=== PATIENT | female | born 1985 | race Caucasian/White ===

== ENCOUNTER 2016-11-27 07:56 | Observation (INO) ==
--- NOTE | 2016-11-27 08:40 | Emergency Department Note ---
Disposition Clinical Impression: Cellulitis Disposition: Still a Patient Condition: Fair Forms: ED Satisfaction Letter Time of Disposition: 11:35 Extremity Problem HPI - General Chief complaint: ED Extremity Problem,Nontraumatic Stated complaint: r hand infection/swelling Time Seen by Provider: 11/27/16 08:05 Source: patient Mode of arrival: private vehicle Limitations: no limitations Nursing Notes Reviewed: Yes Vital Signs Reviewed: Yes - History of Present Illness HPI Narrative: 31-year-old female patient presents to the emergency department with complaint of redness, swelling and tenderness to her hand. Patient states that this occurred over the last 24 hours. She denies any known trauma or site of infection. Patient does state that she is a former IV drug abuser but has not used for 8 years. She does have allergies to Zofran and tramadol. Current tetanus status is up-to-date. She denies any fever but does state that she has had some chills. She denies any abdominal pain, nausea, vomiting. She denies any chest pain, shortness of breath, dizziness or lightheadedness. Pt Subjective Complaint: extremity pain, extremity swelling Onset (ago): hour(s) Consistency: constant Injury Location: right, upper extremity Pain Scale: 8 Quality: aching Radiation: none Improves with: nothing Worsens with: range of motion, palpation Associated symptoms: Reports: denies other symptoms - Related Data Allergies Allergy/AdvReac Type Severity Reaction Status Date / Time ondansetron AdvReac Headache Verified 08/23/16 22:57 [From Zofran (as hydrochloride)] tramadol [From Ultram] AdvReac Headache Verified 08/23/16 22:57 All systems ED: reviewed and negative except as stated. Constitutional: Denies: fever, chills Cardiovascular: Denies: chest pain Respiratory: Denies: cough, dyspnea Gastrointestinal: Denies: abdominal pain, nausea, vomiting Musculoskeletal: Reports: arthralgia, myalgia. Denies: back pain, neck pain Integumentary: Reports: other (Redness and swelling to right hand.) Neurological: Denies: headache Past Medical History - Past Medical History Attestation: Yes The following information was validated with the patient. Source: patient, nursing notes reviewed Medical history: Reports: no medical history Surgical history: Reports: non-contributory - Social History Smoking Status: Current every day smoker Alcohol use: Reports: none Drug use: Reports: none Physical Exam - General Limitations: no limitations General appearance: alert, in no apparent distress - Head Head exam: atraumatic, normocephalic, normal inspection - Eye Eye exam: Present: normal appearance, PERRL - Neck Neck exam: Present: normal inspection, full ROM, trachea midline - Chest Chest inspection: Present: normal inspection, symmetric chest wall rise - Respiratory Respiratory exam: Present: normal lung sounds bilaterally. Absent: respiratory distress - Cardiovascular Cardiovascular exam: Present: regular rate, normal rhythm, normal heart sounds - Expanded Upper Extremity Exam Hand exam: Present: tenderness, swelling, erythema. Absent: ecchymosis, deformity, crepitus Vascular exam: Normal: capillary refill, radial pulse, ulnar pulse - Back Exam Back exam: Present: normal inspection, full ROM. Absent: tenderness - Neurological Exam Neurological exam: Present: alert, oriented X3 - Psychiatric Psychiatric exam: Present: normal affect, normal mood - Skin Skin exam: Present: warm, dry, intact, erythema Course Course Narrative: Care was transferred to Dr. Su at 1100 Vital Signs Temperature 97.8 F 11/27/16 07:58 Pulse Rate 85 11/27/16 07:58 Respiratory Rate 16 11/27/16 07:58 Blood Pressure 110/61 11/27/16 07:58 O2 Sat by Pulse Oximetry 98 11/27/16 07:58 Temperature 97.8 F 11/27/16 07:58 Pulse Rate 68 11/27/16 10:18 Respiratory Rate 18 11/27/16 10:18 Blood Pressure 112/77 11/27/16 10:18 O2 Sat by Pulse Oximetry 100 11/27/16 10:18 Oxygen Delivery Oxygen Delivery Room Air Extremity Problem, Nontraumati - Lab Data Lab results reviewed: Yes I reviewed the patient's lab results. Result diagrams: 11/27/16 10:12 11/27/16 10:12 Lab Results 11/27/16 11/27/16 Range/Units 10:12 10:12 WBC 5.4 (4.3-11.1) K/mcL RBC 4.79 (3.82-4.97) M/mcL Hgb 14.1 (11.5-15.4) g/dL Hct 42.7 (35.3-44.9) % MCV 89.1 (83.0-100.0) fL MCH 29.4 (28.0-33.3) pg MCHC 33.0 (31.6-35.5) g/dL RDW 14.1 (11.5-14.5) % Plt Count 209 (140-400) K/mcL MPV 11.0 (9.4-12.4) fL Immature Gran % 0.2 (0-4) % Seg Neutrophils % 37.5 % Lymphocytes % 41.3 % Monocytes % 5.9 % Eosinophils % 14.4 % Basophils % 0.7 % Neutrophils # 2.0 (1.6-8.9) K/mcL Lymphocytes # 2.2 (0.6-4.6) K/mcL Monocytes # 0.3 (0.0-1.3) K/mcL Eosinophils # 0.8 H (0.0-0.6) K/mcL Basophils # 0.0 (0.0-0.2) K/mcL Sodium 139 (136-145) mEq/L Potassium 3.9 (3.5-4.5) mEq/L Chloride 108 (98-109) mEq/L Carbon Dioxide 21 (19-29) mEq/L BUN 11 (7-20) mg/dL Creatinine 0.79 (0.57-1.11) mg/dL Est GFR ( Amer) > 60 (> 60) Est GFR (Non-Af Amer) > 60 (> 60) BUN/Creatinine Ratio 14 (6-26) Glucose 90 (70-99) mg/dL Calculated Osmolality 287 (280-300) Calcium 9.6 (8.6-10.8) mg/dL Total Bilirubin 0.4 (0.2-1.2) mg/dL AST 15 (5-34) Units/L ALT 13 (0-55) Units/L Alkaline Phosphatase 76 (38-126) Units/L Serum Total Protein 7.5 (6.0-8.3) g/dL Albumin 3.9 (3.5-5.0) g/dL Globulin 3.6 H (2.4-3.5) g/dL Albumin/Globulin Ratio 1.1 (1.1-2.2) - Radiology Data Radiology results reviewed: Yes I reviewed the patient's radiology results.
[2016-11-27] MEDS ORDERED: Ketorolac 30 MG/ML VIAL IVP ONE (10:23)
[2016-11-27 10:24] LABS: Basophils % 0.7 %; Eosinophils # 0.8 K/mcL (0.0-0.6); Eosinophils % 14.4 %; Hematocrit 42.7 % (35.3-44.9); Hemoglobin 14.1 g/dL (11.5-15.4); Immature Granulocytes % 0.2 % (0-4); Lymphocytes # 2.2 K/mcL (0.6-4.6); Lymphocytes % 41.3 %; Mean Corpuscular Hemoglobin 29.4 pg (28.0-33.3); Mean Corpuscular Volume 89.1 fL (83.0-100.0); Monocytes # 0.3 K/mcL (0.0-1.3); Monocytes % 5.9 %; Platelet Count 209 K/mcL (140-400); Red Blood Count 4.79 M/mcL (3.82-4.97); Red Cell Distribution Width 14.1 % (11.5-14.5); Segmented Neutrophils % 37.5 %
[2016-11-27 10:36] LABS: Alanine Aminotransferase 13 Units/L (0-55); Albumin 3.9 g/dL (3.5-5.0); Albumin/Globulin Ratio 1.1 (1.1-2.2); Alkaline Phosphatase 76 Units/L (38-126); Aspartate Amino Transferase 15 Units/L (5-34); BUN/Creatinine Ratio 14 (6-26); Bilirubin,Total 0.4 mg/dL (0.2-1.2); Blood Urea Nitrogen 11 mg/dL (7-20); Calcium 9.6 mg/dL (8.6-10.8); Carbon Dioxide 21 mEq/L (19-29); Chloride 108 mEq/L (98-109); Globulin 3.6 g/dL (2.4-3.5); Glucose 90 mg/dL (70-99); Osmolality,Calculated 287 (280-300); Potassium 3.9 mEq/L (3.5-4.5); Sodium 139 mEq/L (136-145); Total Protein 7.5 g/dL (6.0-8.3); eGFR For African Americans > 60 (> 60); eGFR For Non-African Americans > 60 (> 60)
[2016-11-27] MEDS ORDERED: *HR* Morphine 2 MG/ML SYRINGE IVP ONE (14:03)
[2016-11-27] MEDS ORDERED: Piperacillin/Tazobactam 3.375 GM in D5% in Water (Mini-Bag+) 100 ML IVPB ONE (14:03)
[2016-11-27] MEDS ORDERED: Vancomycin 1,000 MG in D5% in Water 250 ML IVPB ONE (14:03)
[2016-11-27] MEDS ORDERED: *HR* Promethazine 25 MG/ML VIAL IVP ONE ×2 (14:04→21:53)
[2016-11-27] MEDS ORDERED: Naloxone 0.4 MG/ML INJ IVP PRN (15:11)
[2016-11-27] MEDS ORDERED: Acetaminophen 325 MG TABLET PO PRN (15:11)
--- NOTE | 2016-11-27 15:23 | Internal Med History&Physical ---
Date of Encounter: 11/27/16 Time of Encounter: 14:30 Assessment and Plan (1) Cellulitis of right hand Current visit: Yes Status: Acute Placed the pt into Med Surg for observation Reviewed CT of Hand - no signs of fluid collection .. No osteomylities It does look like Poison IV rash too depending on presentation and appearance Does not look like any abscess so at this point will treat her with IV Abx Clindamycin Also added IV steroids Solumedrol 40mg BID Also placed her on PO and IV analgesics PRN keep hand elevated Cont symptomatic and supportive care (2) Poison eve dermatitis Current visit: Yes Status: Acute see above (3) Tobacco dependence Current visit: Yes Status: Acute counseled to quit offered nicotine patch..pt refused Internal Medicine - H&P: HPI Chief complaint: Rt hand swelling Admitted From: Emergency Dept Plans for Post Hospital Care: Home History of present illness: Ms. Courtney is a 31 year old female patient presented to the emergency department with complaint of redness, swelling and tenderness to her Rt hand started last night. She denies any known trauma or site of infection. Patient does state that she is a former IV drug abuser but has not used for 8 years. She first noticed a small vesicles type rash over lateral region of dorsum of hand then noticed erythematous rash over medial side of wrist with severe tenderness. Denied any contact to allergies / trees / grass. She does have allergies to Zofran and Tramadol. Current tetanus status is up-to-date. She denies any fever but does state that she has had some chills. She denies any abdominal pain, nausea, vomiting. She denies any chest pain, shortness of breath, dizziness or lightheadedness. Past Med Surg Social Fam HX - Past Medical History Medical history: no medical history - Past Surgical History Surgical History: non-contributory - Social History Smoking Status: Current every day smoker (1 PPD) Alcohol use: none Drug use: none - Additional Family History Additional family history: Reviewed. Non contribuitroy to current problem Internal Medicine - H&P: Meds No Known Home Drugs 11/27/16 [History] 3 Allergy/AdvReac Type Severity Reaction Status Date / Time ondansetron AdvReac Headache Verified 08/23/16 22:57 [From Zofran (as hydrochloride)] tramadol [From Ultram] AdvReac Headache Verified 08/23/16 22:57 All Systems PM: A 10-system review of systems was performed and is negative for pertinent findings except as documented above in the HPI. Review of systems: All the systems are reviewed everything is benign except the systems and symptoms I mentioned in the history of present illness - Constitutional Vitals: Temp Pulse Resp BP Pulse Ox 97.8 F 64 19 104/78 100 11/27/16 07:58 11/27/16 15:14 11/27/16 15:14 11/27/16 15:14 11/27/16 15:14 General appearance: Present: A&O X 3, pleasant, no acute distress, answers questions appropriately - Head Head exam: Present: atraumatic, normal inspection - Respiratory Respiratory exam: Present: CTAB. Absent: accessory muscle use, rales, rhonchi, wheezes - Cardiovascular Cardiovascular exam: Present: RRR, +S1, +S2. Absent: diastolic murmur, gallop, rubs, systolic murmur - GI/Abdominal GI/Abdominal exam: Present: normal bowel sounds, soft, no peritoneal signs. Absent: distended, tenderness - Extremities Exam Extremities exam: Present: tenderness (Rt wrist). Absent: calf tenderness Additional comments: diffuse swelling over Rt wrist and dorsum of the hand. Sand paper like rash, few vesicles over Rt hand lateral region. Mild erythematous rash and few vesicles noticed over medial region of Rt wrist - Neurological Exam Neurological exam: Present: alert, oriented X3 - Psychiatric Psychiatric exam: Present: normal affect, normal mood Internal Med - H&P Results - Labs CBC & Chem 7: 11/27/16 10:12 11/27/16 10:12
[2016-11-27] MEDS: Clindamycin 600 MG/50 ML 600 MG/50 ML IV.SOLN IVPB SCH ×2 (16:11→23:23)
[2016-11-27] MEDS: *HR* HYDROcodone/Acet 5/325 mg TABLET PO PRN ×2 (16:11→21:43)
[2016-11-27] MEDS: MethylPREDNISolone 40 MG/ML VIAL IVP SCH (18:23)
[2016-11-27] MEDS: *HR* Morphine 2 MG/ML SYRINGE IVP PRN (19:49)
[2016-11-27] MEDS: Famotidine 20 MG TABLET PO SCH (19:57)
[2016-11-27] MEDS: Lactobacillus 1 EACH CAP.SPRINK PO SCH (19:57)
[2016-11-28] MEDS: *HR* Morphine 2 MG/ML SYRINGE IVP PRN ×5 (00:37→23:58)
[2016-11-28 01:47] LABS: Basophils % 0.2 %; Eosinophils % 0.6 %; Hematocrit 40.5 % (35.3-44.9); Hemoglobin 13.2 g/dL (11.5-15.4); Immature Granulocytes % 0.2 % (0-4); Immature Platelets 3.8 % (1.1-6.1); Lymphocytes # 0.9 K/mcL (0.6-4.6); Lymphocytes % 18.1 %; Mean Corpuscular HGB Conc 32.6 g/dL (31.6-35.5); Mean Corpuscular Hemoglobin 28.8 pg (28.0-33.3); Mean Corpuscular Volume 88.4 fL (83.0-100.0); Mean Platelet Volume 10.8 fL (9.4-12.4); Monocytes % 0.6 %; Neutrophils # 4.1 K/mcL (1.6-8.9); Platelet Count 221 K/mcL (140-400); Red Blood Count 4.58 M/mcL (3.82-4.97); Red Cell Distribution Width 13.8 % (11.5-14.5); Segmented Neutrophils % 80.3 %
[2016-11-28 02:09] LABS: Platelet Estimate Normal (Normal)
[2016-11-28 02:10] LABS: Large Platelets Present (Not Present); Reactive Lymphocytes Present (Not Present)
[2016-11-28 02:13] LABS: BUN/Creatinine Ratio 17 (6-26); Blood Urea Nitrogen 14 mg/dL (7-20); Calcium 9.7 mg/dL (8.6-10.8); Carbon Dioxide 19 mEq/L (19-29); Chloride 110 mEq/L (98-109); Glucose 147 mg/dL (70-99); Osmolality,Calculated 291 (280-300); Potassium 4.3 mEq/L (3.5-4.5); Sodium 139 mEq/L (136-145); eGFR For African Americans > 60 (> 60); eGFR For Non-African Americans > 60 (> 60)
[2016-11-28] MEDS: *HR* HYDROcodone/Acet 5/325 mg TABLET PO PRN ×4 (02:13→21:00)
[2016-11-28] MEDS: MethylPREDNISolone 40 MG/ML VIAL IVP SCH ×2 (06:12→18:56)
[2016-11-28] MEDS: Clindamycin 600 MG/50 ML 600 MG/50 ML IV.SOLN IVPB SCH ×3 (08:30→23:58)
[2016-11-28] MEDS: Lactobacillus 1 EACH CAP.SPRINK PO SCH ×2 (08:30→20:53)
[2016-11-28] MEDS: Famotidine 20 MG TABLET PO SCH ×2 (08:31→20:53)
--- NOTE | 2016-11-28 15:52 | Internal Med Progress Note ---
Date of Encounter: 11/28/16 Time of Encounter: 15:50 - Assessment and plan (1) Cellulitis of right hand Status: Acute Assessment and plan: Pain and swelling intertarsal right hand and forearm. Improving slowly. Continue IV clindamycin. No evidence of sepsis. Follow-up blood cultures. Right upper extremity elevation. Pain control with when necessary IV morphine and oral Percocet. Supportive care. Continue IV steroids for possible contact dermatitis. (2) Tobacco dependence Status: Chronic Assessment and plan: Continue nicotine transdermal patch. - Subjective Interval history: Improving right hand and forearm swelling; reports throbbing pain in right hand ; no fever/chills, nausea, vomiting, abdominal pain; - Constitutional Vitals: Temp Pulse Resp BP Pulse Ox 97.8 F 73 16 108/67 97 11/28/16 11:38 11/28/16 11:38 11/28/16 11:38 11/28/16 11:38 11/28/16 11:38 General appearance: Present: A&O X 3, pleasant, no acute distress, answers questions appropriately - Respiratory Respiratory exam: Present: CTAB. Absent: accessory muscle use, rales, rhonchi, wheezes - Cardiovascular Cardiovascular exam: Present: RRR, +S1, +S2. Absent: diastolic murmur, gallop, rubs, systolic murmur - GI/Abdominal GI/Abdominal exam: Present: normal bowel sounds, soft, no peritoneal signs. Absent: distended, tenderness - Extremities Exam Extremities exam: Present: full ROM, warm, radial pulses palpable and symmetrical. Absent: calf tenderness, cyanotic, pedal edema Additional comments: right hand dorsum with diffuse edema and tenderness, small area of intense erythema over lateral hand; associated sandpaper papular rash; some edema in distal forearm- improving Internal Medicine: Result - Labs CBC & Chem 7: 11/28/16 01:20 11/28/16 01:20 Labs: Short CBC 11/28/16 Range/Units 01:20 WBC 5.1 (4.3-11.1) K/mcL Hgb 13.2 (11.5-15.4) g/dL Hct 40.5 (35.3-44.9) % Plt Count 221 (140-400) K/mcL Neutrophils # 4.1 (1.6-8.9) K/mcL BMP 11/28/16 01:20 Sodium 139 Potassium 4.3 Chloride 110 H Carbon Dioxide 19 BUN 14 Creatinine 0.84 Glucose 147 H Calcium 9.7 Consult Discharge Plan - Plan Instructions: Cellulitis (DC) Additional Instructions: F/up with Dermatology in 1-2 weeks F/up with PCP in 1-2 weeks Referrals: NONE,PCP [Primary Care Provider] - Prescriptions: HYDROcodone/Acet 5/325 mg [[place] 5-325 mg] 1 tab PO Q4HR PRN #15 tablet PRN Reason: Pain Clindamycin HCl 600 mg PO Q8H #15 capsule Lactobacillus [Culturelle] 1 each PO BID #20 cap.sprink PredniSONE [Deltasone] 40 mg PO DAILY #10 tablet
[2016-11-29] MEDS: MethylPREDNISolone 40 MG/ML VIAL IVP SCH (05:05)
[2016-11-29] MEDS: *HR* Morphine 2 MG/ML SYRINGE IVP PRN (05:11)
[2016-11-29] MEDS: *HR* HYDROcodone/Acet 5/325 mg TABLET PO PRN ×2 (08:46→13:43)
[2016-11-29] MEDS: Clindamycin 600 MG/50 ML 600 MG/50 ML IV.SOLN IVPB SCH (08:46)
[2016-11-29] MEDS: Lactobacillus 1 EACH CAP.SPRINK PO SCH (08:46)
[2016-11-29] MEDS: Famotidine 20 MG TABLET PO SCH (08:46)
[2016-11-29 11:39] VITALS: BP 111/40
--- NOTE | 2016-11-29 13:06 | Discharge Summary ---
Date of Encounter: 11/29/16 Time of Encounter: 11:40 - Discharge Diagnosis (1) Cellulitis of right hand Priority: Primary Status: Acute (2) Tobacco dependence Priority: Secondary Status: Chronic - Discharge Medications Prescriptions: HYDROcodone/Acet 5/325 mg [[place] 5-325 mg] 1 tab PO Q4HR PRN #15 tablet PRN Reason: Pain Clindamycin HCl 600 mg PO Q8H #15 capsule Lactobacillus [Culturelle] 1 each PO BID #20 cap.sprink PredniSONE [Deltasone] 40 mg PO DAILY #10 tablet Home Medications: Clindamycin HCl 600 mg PO Q8H #15 capsule 11/29/16 [Rx] HYDROcodone/Acet 5/325 mg [[place] 5-325 mg] 1 tab PO Q4HR PRN #15 tablet [Rx] Lactobacillus [Culturelle] 1 each PO BID #20 cap.sprink 11/29/16 [Rx] PredniSONE [Deltasone] 40 mg PO DAILY #10 tablet 11/29/16 [Rx] Allergies/Adverse Reactions: 3 Allergy/AdvReac Type Severity Reaction Status Date / Time ondansetron AdvReac Headache Verified 08/23/16 22:57 [From Zofran (as hydrochloride)] tramadol [From Ultram] AdvReac Headache Verified 08/23/16 22:57 Date of admission: 11/27/16 14:45 Primary care physician: PCP GAURANG Discharging clinician: Anna Nixon Anticipated date of discharge: 11/29/16 - Patient Status Disposition: Home, Self-Care Condition: Fair Functional capacity at discharge: independent ambulation Overall status at discharge: patient is progressing back to baseline - Discharge Instructions Instructions: Cellulitis (DC) Follow Up With: NONE,PCP [Primary Care Provider] - Additional Instructions: F/up with Dermatology in 1-2 weeks F/up with PCP in 1-2 weeks - Diet and Activity Activity: resume usual activities as tolerated (return to work on 12/02/16) Diet: advance to your usual diet, regular diet Hospital course: Ms. Courtney is a 31 year old female with no significant past medical history was admitted with right hand pain and Swelling. She was noted to have cellulitis and mild contact dermatitis of the right hand and forearm and was started on IV clindamycin and IV steroids to which she responded fairly well. Her pain and edema showed a significant improvement and she had no evidence of sepsis, otherwise medically stable for discharge on oral antibiotics and pain medications. She will follow up with dermatology as an outpatient. - Time Spent with Patient Total time spent providing and/or coordinating discharge services: Greater than 30 minutes (40 min) - Constitutional Vitals: Temp Pulse Resp BP Pulse Ox 98.5 F 77 16 111/40 97 11/29/16 11:38 11/29/16 11:38 11/29/16 11:38 11/29/16 11:38 11/29/16 11:38 General appearance: Present: A&O X 3, answers questions appropriately - Extremities Exam Extremities exam: Present: warm, radial pulses palpable and symmetrical. Absent : calf tenderness, cyanotic, pedal edema Additional comments: right upper extremity- improving edema over dorsal hand and resolved forearm edema; persistent erythematous area over lateral hand- tender with sandpaper rash
== END 2016-11-29 14:24 | disposition home or self-care (01) ==
LOC: 3NENU 07:56 → EMEROO 07:56 → SUATTDRO 14:45 → 3NENU 15:34
PROVIDERS: ADMIT Family Medicine; ATTEND Internal Medicine

== ENCOUNTER 2018-04-10 06:08 | Inpatient (IN) ==
[2018-04-10] MEDS ORDERED: 0.9 % Sodium Chloride 1,000 ML IVC ONE ×2 (06:36→07:42)
[2018-04-10] MEDS ORDERED: Ketorolac 30 MG/ML VIAL IVP ONE (06:38)
[2018-04-10] MEDS ORDERED: Aspirin 81 MG TAB.CHEW PO ONE (06:38)
[2018-04-10] MEDS ORDERED: Isovue-370 500 ML BOTTLE IVP ONE (06:42)
--- NOTE | 2018-04-10 06:57 | Emergency Department Note ---
Disposition Clinical Impression: Chest pain Qualifiers: Chest pain type: unspecified Qualified Code(s): R07.9 - Chest pain, unspecified Fever Qualifiers: Fever type: due to other condition Qualified Code(s): R50.81 - Fever presenting with conditions classified elsewhere Disposition: Still a Patient Condition: Fair Referrals: NONE,PCP [Primary Care Provider] - Time of Disposition: 07:50 General Adult HPI - General Chief complaint: ED Chest Pain Stated complaint: chest pain Time Seen by Provider: 04/10/18 06:15 Source: EMS Mode of arrival: EMS Limitations: no limitations Nursing Notes Reviewed: Yes Vital Signs Reviewed: Yes - History of Present Illness HPI Narrative: Patient is a 32-year-old female with a past medical history of cholecystectomy, IV drug use, and currently on Suboxone presents to the emergency department for evaluation of chest pain that has been going on for the past 3 days. She states that has been constant and gradually worsening. She describes as a sharp stabbing pain that is worse with inspiration. She denies any cough or congestion. She denies worsening with exertion. She points to her right lower chest and middle chest of the region of pain. When prompted she states that the pain does improve if she leans forward. Denies fall or injury. Last drug use was 2 weeks ago. Denies fevers over past 3 days. Pain Scale: 7 - Related Data Home Medications Medication Instructions Recorded Confirmed Ibuprofen 11/01/17 Tylenol 11/01/17 Previous Rx's Medication Instructions Recorded Sulfamethoxazole/Trimeth DS 1 each PO BID #20 tablet 11/01/17 [Bactrim DS] cephALEXin [Keflex] 500 mg PO TID #30 capsule 11/01/17 Ibuprofen [Motrin] 800 mg PO Q8HR #20 tablet 01/05/18 Sulfamethoxazole/Trimeth DS 1 each PO BID #20 tablet 01/05/18 [Bactrim DS] cephALEXin [Keflex] 500 mg PO QID #28 capsule 01/05/18 Allergies Allergy/AdvReac Type Severity Reaction Status Date / Time ondansetron AdvReac Headache Verified 11/01/17 19:17 [From Zofran (as hydrochloride)] tramadol [From Ultram] AdvReac Headache Verified 11/01/17 19:17 All systems ED: reviewed and negative except as stated. Review of Systems: As Per HPI Constitutional: Denies: fever, chills Cardiovascular: Reports: chest pain. Denies: palpitations, dyspnea on exertion, edema, syncope Respiratory: Reports: dyspnea, other (pain with inspiration). Denies: cough, wheezes, hemoptysis, sputum production Gastrointestinal: Denies: abdominal pain, nausea, vomiting Musculoskeletal: Denies: back pain, neck pain Integumentary: Denies: rash Past Medical History - Past Medical History Medical history: Reports: no medical history Surgical history: Reports: cholecystectomy Psychiatric history: Reports: no psych history - Social History Smoking Status: Current every day smoker Smokeless Tobacco Status: No Alcohol use: Reports: none Drug use: Reports: marijuana, methamphetamine, IV Drug Use Physical Exam Tachycardic, tachypnea, and febrile. BP is stable. - General Limitations: no limitations General appearance: alert, in distress (Sitting forward on the bed holding her chest. Tachypnic and tachycardic. Appears to be having pain with inspiration. Very warm to touch. ) - Head Head exam: atraumatic, normocephalic, normal inspection - Eye Eye exam: Present: normal appearance, PERRL, EOMI - ENT ENT exam: normal exam, normal oropharynx, mucous membranes dry - Neck Neck exam: Present: normal inspection, full ROM, trachea midline - Chest Chest inspection: Present: normal inspection, symmetric chest wall rise. Absent: tenderness - Respiratory Respiratory exam: Present: normal lung sounds bilaterally. Absent: respiratory distress, wheezes, accessory muscle use, prolonged expiratory phase - Cardiovascular Cardiovascular exam: Present: tachycardia, normal heart sounds, +S1, +S2 - Abdominal Exam Abdominal exam: Present: soft, Non-Tender. Absent: tenderness, distention, guarding, rebound, rigidity - Extremities Exam Extremities exam: Present: normal inspection, full ROM. Absent: tenderness, ped al edema - Back Exam Back exam: Present: normal inspection, full ROM. Absent: tenderness - Neurological Exam Neurological exam: Present: alert, oriented X3 - Psychiatric Psychiatric exam: Present: normal affect, normal mood - Skin Skin exam: Present: warm, dry, intact, normal color. Absent: rash Course Course Narrative: Patient is a 32-year-old female with a past medical history of IV drug use pre sented with fever and chest pain. Concerns at this time include but are not limited to septic emboli, infectious endocarditis, pericarditis, myocarditis, pneumonia, drug use the plan this time is for her to undergo evaluation with basic labs as well as a sepsis workup since she is meeting sepsis criteria at this time. 3 rounds of blood cultures will be drawn. We will also evaluate patient with a CTA of the chest given that she is a high-risk patient with her past history of IV drug use. Her initial EKG is showing sinus tachycardia. She will be signed out to the day team for continuation of her evaluation and treatment. Signed out to Dr. Mane and Dr. Donnelly. Vital Signs Temperature 100.4 F H 04/10/18 06:15 Pulse Rate 139 04/10/18 06:15 Respiratory Rate 26 04/10/18 06:15 Blood Pressure 137/77 04/10/18 06:15 O2 Sat by Pulse Oximetry 100 04/10/18 06:15 Temperature 100.4 F H 04/10/18 06:15 Pulse Rate 139 04/10/18 06:15 Respiratory Rate 26 04/10/18 06:15 Blood Pressure 137/77 04/10/18 06:15 O2 Sat by Pulse Oximetry 100 04/10/18 06:15 Oxygen Delivery Oxygen Delivery Room Air Medical Decision Making - Medical Records Medical records reviewed: Yes I reviewed the patient's medical records. - Lab Data Lab results reviewed: Yes I reviewed the patient's lab results. - EKG Data EKG #1 EKG attestation: Yes I reviewed and interpreted this EKG. EKG results narrative: EKG reading performed at 7:49 shows sinus tachycardia. S.B.A.R. - S.B.A.R. Situation: Demographics, MOA Background: Presenting Complaint, Relevant PMH, Meds, & Allergies Assessment: Vital Signs, Course and respsone to treatment, Exam Concerns, Patient/Family Expectation, Pertinant Lab Results, Outstanding Labs Recommendation: Barrier(s) to disposition, Recommendation based on pending studies, treatments, or consults S.B.A.R. Report Given to: Jonah Mane S.B.AJerson Repor Time: 07:50
[2018-04-10 07:03] LABS: Basophils % 0.4 %; Eosinophils % 0.1 %; Hematocrit 34.9 % (35.3-44.9); Hemoglobin 12.2 g/dL (11.5-15.4); Immature Granulocytes % 0.8 % (0-4); Lymphocytes # 0.8 K/mcL (0.6-4.6); Lymphocytes % 11.6 %; Mean Corpuscular Hemoglobin 29.4 pg (28.0-33.3); Mean Corpuscular Volume 84.1 fL (83.0-100.0); Mean Platelet Volume 11.8 fL (9.4-12.4); Monocytes # 0.4 K/mcL (0.0-1.3); Monocytes % 5.9 %; Nucleated Red Blood Cells 0.3 /100 WBC (0); Platelet Count 182 K/mcL (140-400); Red Blood Count 4.15 M/mcL (3.82-4.97); Red Cell Distribution Width 14.1 % (11.5-14.5); Segmented Neutrophils % 81.2 %
[2018-04-10 07:13] LABS: Troponin I < 0.03 ng/mL (< 0.04)
[2018-04-10 07:17] LABS: Alanine Aminotransferase 330 Units/L (7-52); Albumin 3.8 g/dL (3.5-5.7); Albumin/Globulin Ratio 1.1 (1.1-2.2); Alkaline Phosphatase 137 Units/L (34-104); Aspartate Amino Transferase 131 Units/L (13-39); BUN/Creatinine Ratio 21 (6-26); Bilirubin,Direct 0.3 mg/dL (0.0-0.2); Bilirubin,Indirect 0.9 mg/dL (0.0-1.2); Bilirubin,Total 1.2 mg/dL (0.3-1.0); Blood Urea Nitrogen 14 mg/dL (6-20); Calcium 9.5 mg/dL (8.6-10.3); Carbon Dioxide 23 mEq/L (23-29); Chloride 92 mEq/L (98-107); Globulin 3.5 g/dL (2.4-3.5); Glucose 127 mg/dL (70-105); Lipase < 3 Units/L (11-82); Magnesium 1.7 mg/dL (1.6-2.6); Osmolality,Calculated 264 (280-300); Phosphorous 1.9 mg/dL (2.7-4.5); Potassium 4.4 mEq/L (3.5-5.1); Sodium 126 mEq/L (136-145); Total Protein 7.3 g/dL (6.4-8.9); eGFR For Non-African Americans > 60 (> 60)
[2018-04-10 07:25] LABS: Bilirubin,Urine Small (Negative); Blood,Urine Moderate (Negative); Clarity,Urine Cloudy (Clear); Color,Urine Dark Yellow (Yellow); Glucose,Urine (UA) Normal (Normal); Ketones,Urine Negative (Negative); Leukocyte Esterase,Urine Small (Negative); Nitrite,Urine Positive (Negative); Protein,Urine 100 mg/dL (Neg-Trace); Specific Gravity,Urine 1.017 (1.010-1.025)
[2018-04-10 07:26] LABS: Bacteria,Urine Many per hpf (None-Few); Hyaline Casts,Urine None Seen per lpf (None-Few); RBC,Urine 0-3 per hpf (0-3); Squamous Epithelial Cell,Urine Many per lpf (None-Few)
--- NOTE | 2018-04-10 07:31 | Emergency Department Note ---
Disposition Clinical Impression: History of drug use, Transaminitis, Multifocal pneumonia Chest pain Qualifiers: Chest pain type: unspecified Qualified Code(s): R07.9 - Chest pain, unspecified Fever Qualifiers: Fever type: due to other condition Qualified Code(s): R50.81 - Fever presenting with conditions classified elsewhere Sepsis Qualifiers: Sepsis type: sepsis due to unspecified organism Qualified Code(s): A41.9 - Sepsis, unspecified organism Disposition: Admitted As Inpatient Condition: Fair General Adult HPI - General Chief complaint: ED Chest Pain Stated complaint: chest pain Time Seen by Provider: 04/10/18 06:15 Source: EMS Mode of arrival: EMS Limitations: no limitations Nursing Notes Reviewed: Yes Vital Signs Reviewed: Yes - History of Present Illness Pain Scale: 7 - Related Data Home Medications Medication Instructions Recorded Confirmed Ibuprofen 11/01/17 Tylenol 11/01/17 Previous Rx's Medication Instructions Recorded Sulfamethoxazole/Trimeth DS 1 each PO BID #20 tablet 11/01/17 [Bactrim DS] cephALEXin [Keflex] 500 mg PO TID #30 capsule 11/01/17 Ibuprofen [Motrin] 800 mg PO Q8HR #20 tablet 01/05/18 Sulfamethoxazole/Trimeth DS 1 each PO BID #20 tablet 01/05/18 [Bactrim DS] cephALEXin [Keflex] 500 mg PO QID #28 capsule 01/05/18 Allergies Allergy/AdvReac Type Severity Reaction Status Date / Time ondansetron AdvReac Headache Verified 11/01/17 19:17 [From Zofran (as hydrochloride)] tramadol [From Ultram] AdvReac Headache Verified 11/01/17 19:17 Constitutional: Denies: fever, chills Cardiovascular: Reports: chest pain. Denies: palpitations, dyspnea on exertion, edema, syncope Respiratory: Reports: dyspnea, other (pain with inspiration). Denies: cough, wheezes, hemoptysis, sputum production Gastrointestinal: Denies: abdominal pain, nausea, vomiting Musculoskeletal: Denies: back pain, neck pain Integumentary: Denies: rash Past Medical History - Past Medical History Medical history: Reports: no medical history Surgical history: Reports: cholecystectomy Psychiatric history: Reports: no psych history - Social History Smoking Status: Current every day smoker Smokeless Tobacco Status: No Alcohol use: Reports: none Drug use: Reports: marijuana, methamphetamine, IV Drug Use Physical Exam - General Limitations: no limitations General appearance: alert, in distress (Sitting forward on the bed holding her chest. Tachypnic and tachycardic. Appears to be having pain with inspiration. Very warm to touch. ) Course Vital Signs Temperature 100.4 F H 04/10/18 06:15 Pulse Rate 139 04/10/18 06:15 Respiratory Rate 26 04/10/18 06:15 Blood Pressure 137/77 04/10/18 06:15 O2 Sat by Pulse Oximetry 100 04/10/18 06:15 Temperature 97.5 F L 04/10/18 14:33 Pulse Rate 106 04/10/18 14:33 Respiratory Rate 14 04/10/18 14:33 Blood Pressure 98/69 04/10/18 14:33 O2 Sat by Pulse Oximetry 96 04/10/18 14:33 Oxygen Delivery Oxygen Delivery Room Air Medical Decision Making - Lab Data Result diagrams: 04/10/18 06:40 04/10/18 06:40 Lab Results 04/10/18 04/10/18 04/10/18 Range/Units 06:40 06:40 06:40 WBC 7.1 (4.3-11.1) K/mcL RBC 4.15 (3.82-4.97) M/mcL Hgb 12.2 (11.5-15.4) g/dL Hct 34.9 L (35.3-44.9) % MCV 84.1 (83.0-100.0) fL MCH 29.4 (28.0-33.3) pg MCHC 35.0 (31.6-35.5) g/dL RDW 14.1 (11.5-14.5) % Plt Count 182 (140-400) K/mcL MPV 11.8 (9.4-12.4) fL Immature Gran % 0.8 (0-4) % Seg Neutrophils % 81.2 % Lymphocytes % 11.6 % Monocytes % 5.9 % Eosinophils % 0.1 % Basophils % 0.4 % Neutrophils # 5.8 (1.6-8.9) K/mcL Lymphocytes # 0.8 (0.6-4.6) K/mcL Monocytes # 0.4 (0.0-1.3) K/mcL Eosinophils # 0.0 (0.0-0.6) K/mcL Basophils # 0.0 (0.0-0.2) K/mcL Nucleated RBCs/100 WBC 0.3 H (0) /100 WBC Sodium 126 L (136-145) mEq/L Potassium 4.4 (3.5-5.1) mEq/L Chloride 92 L (98-107) mEq/L Carbon Dioxide 23 (23-29) mEq/L BUN 14 (6-20) mg/dL Creatinine 0.67 (0.60-1.20) mg/dL Est GFR ( Amer) > 60 (> 60) Est GFR (Non-Af Amer) > 60 (> 60) BUN/Creatinine Ratio 21 (6-26) Glucose 127 H (70-105) mg/dL Calculated Osmolality 264 L (280-300) Lactic Acid (0.5-2.2) mmol/L Calcium 9.5 (8.6-10.3) mg/dL Phosphorus 1.9 L (2.7-4.5) mg/dL Magnesium 1.7 (1.6-2.6) mg/dL Total Bilirubin 1.2 H (0.3-1.0) mg/dL Direct Bilirubin 0.3 H (0.0-0.2) mg/dL Indirect Bilirubin 0.9 (0.0-1.2) mg/dL AST 131 H (13-39) Units/L ALT 330 H (7-52) Units/L Alkaline Phosphatase 137 H (34-104) Units/L Troponin I < 0.03 (< 0.04) ng/mL Serum Total Protein 7.3 (6.4-8.9) g/dL Albumin 3.8 (3.5-5.7) g/dL Globulin 3.5 (2.4-3.5) g/dL Albumin/Globulin Ratio 1.1 (1.1-2.2) Lipase < 3 L (11-82) Units/L Urine Color (Yellow) Urine Clarity (Clear) Urine pH (5.0-8.0) pH Units Ur Specific [place] (1.010-1.025) Urine Protein (Neg-Trace) mg/dL Urine Glucose (UA) (Normal) mg/dL Urine Ketones (Negative) mg/dL Urine Blood (Negative) Urine Nitrite (Negative) Urine Bilirubin (Negative) Urine Urobilinogen (Normal) mg/dL Ur Leukocyte Esterase (Negative) Urine Microscopic RBC (0-3) per hpf Urine Microscopic WBC (0-3) per hpf Ur Squamous Epith Cells (None-Few) per lpf Urine Bacteria (None-Few) per hpf Hyaline Casts (None-Few) per lpf Ur Culture Indicated? (NO) Urine Test (Negative) Hepatitis A IgM Ab Nonreactive (Nonreactive) Hep Bs Antigen Nonreactive (Nonreactive) Hep B Core IgM Ab Nonreactive (Nonreactive) HIV Ag/Ab Combo Qual Nonreactive (Nonreactive) 04/10/18 04/10/18 04/10/18 Range/Units 06:47 07:13 07:13 WBC (4.3-11.1) K/mcL RBC (3.82-4.97) M/mcL Hgb (11.5-15.4) g/dL Hct (35.3-44.9) % MCV (83.0-100.0) fL MCH (28.0-33.3) pg MCHC (31.6-35.5) g/dL RDW (11.5-14.5) % Plt Count (140-400) K/mcL MPV (9.4-12.4) fL Immature Gran % (0-4) % Seg Neutrophils % % Lymphocytes % % Monocytes % % Eosinophils % % Basophils % % Neutrophils # (1.6-8.9) K/mcL Lymphocytes # (0.6-4.6) K/mcL Monocytes # (0.0-1.3) K/mcL Eosinophils # (0.0-0.6) K/mcL Basophils # (0.0-0.2) K/mcL Nucleated RBCs/100 WBC (0) /100 WBC Sodium (136-145) mEq/L Potassium (3.5-5.1) mEq/L Chloride (98-107) mEq/L Carbon Dioxide (23-29) mEq/L BUN (6-20) mg/dL Creatinine (0.60-1.20) mg/dL Est GFR ( Amer) (> 60) Est GFR (Non-Af Amer) (> 60) BUN/Creatinine Ratio (6-26) Glucose (70-105) mg/dL Calculated Osmolality (280-300) Lactic Acid 2.1 (0.5-2.2) mmol/L Calcium (8.6-10.3) mg/dL Phosphorus (2.7-4.5) mg/dL Magnesium (1.6-2.6) mg/dL Total Bilirubin (0.3-1.0) mg/dL Direct Bilirubin (0.0-0.2) mg/dL Indirect Bilirubin (0.0-1.2) mg/dL AST (13-39) Units/L ALT (7-52) Units/L Alkaline Phosphatase (34-104) Units/L Troponin I (< 0.04) ng/mL Serum Total Protein (6.4-8.9) g/dL Albumin (3.5-5.7) g/dL Globulin (2.4-3.5) g/dL Albumin/Globulin Ratio (1.1-2.2) Lipase (11-82) Units/L Urine Color Dark Yellow (Yellow) Urine Clarity Cloudy A (Clear) Urine pH 6.0 (5.0-8.0) pH Units Ur Specific [place] 1.017 (1.010-1.025) Urine Protein 100 H (Neg-Trace) mg/dL Urine Glucose (UA) Normal (Normal) mg/dL Urine Ketones Negative (Negative) mg/dL Urine Blood Moderate H (Negative) Urine Nitrite Positive A (Negative) Urine Bilirubin Small H (Negative) Urine Urobilinogen 4.0 H (Normal) mg/dL Ur Leukocyte Esterase Small H (Negative) Urine Microscopic RBC 0-3 (0-3) per hpf Urine Microscopic WBC 5-15 H (0-3) per hpf Ur Squamous Epith Cells Many H (None-Few) per lpf Urine Bacteria Many H (None-Few) per hpf Hyaline Casts None Seen (None-Few) per lpf Ur Culture Indicated? NO. A (NO) Urine Test Negative (Negative) Hepatitis A IgM Ab (Nonreactive) Hep Bs Antigen (Nonreactive) Hep B Core IgM Ab (Nonreactive) HIV Ag/Ab Combo Qual (Nonreactive) 04/10/18 Range/Units 11:09 WBC (4.3-11.1) K/mcL RBC (3.82-4.97) M/mcL Hgb (11.5-15.4) g/dL Hct (35.3-44.9) % MCV (83.0-100.0) fL MCH (28.0-33.3) pg MCHC (31.6-35.5) g/dL RDW (11.5-14.5) % Plt Count (140-400) K/mcL MPV (9.4-12.4) fL Immature Gran % (0-4) % Seg Neutrophils % % Lymphocytes % % Monocytes % % Eosinophils % % Basophils % % Neutrophils # (1.6-8.9) K/mcL Lymphocytes # (0.6-4.6) K/mcL Monocytes # (0.0-1.3) K/mcL Eosinophils # (0.0-0.6) K/mcL Basophils # (0.0-0.2) K/mcL Nucleated RBCs/100 WBC (0) /100 WBC Sodium (136-145) mEq/L Potassium (3.5-5.1) mEq/L Chloride (98-107) mEq/L Carbon Dioxide (23-29) mEq/L BUN (6-20) mg/dL Creatinine (0.60-1.20) mg/dL Est GFR ( Amer) (> 60) Est GFR (Non-Af Amer) (> 60) BUN/Creatinine Ratio (6-26) Glucose (70-105) mg/dL Calculated Osmolality (280-300) Lactic Acid 1.6 (0.5-2.2) mmol/L Calcium (8.6-10.3) mg/dL Phosphorus (2.7-4.5) mg/dL Magnesium (1.6-2.6) mg/dL Total Bilirubin (0.3-1.0) mg/dL Direct Bilirubin (0.0-0.2) mg/dL Indirect Bilirubin (0.0-1.2) mg/dL AST (13-39) Units/L ALT (7-52) Units/L Alkaline Phosphatase (34-104) Units/L Troponin I (< 0.04) ng/mL Serum Total Protein (6.4-8.9) g/dL Albumin (3.5-5.7) g/dL Globulin (2.4-3.5) g/dL Albumin/Globulin Ratio (1.1-2.2) Lipase (11-82) Units/L Urine Color (Yellow) Urine Clarity (Clear) Urine pH (5.0-8.0) pH Units Ur Specific [place] (1.010-1.025) Urine Protein (Neg-Trace) mg/dL Urine Glucose (UA) (Normal) mg/dL Urine Ketones (Negative) mg/dL Urine Blood (Negative) Urine Nitrite (Negative) Urine Bilirubin (Negative) Urine Urobilinogen (Normal) mg/dL Ur Leukocyte Esterase (Negative) Urine Microscopic RBC (0-3) per hpf Urine Microscopic WBC (0-3) per hpf Ur Squamous Epith Cells (None-Few) per lpf Urine Bacteria (None-Few) per hpf Hyaline Casts (None-Few) per lpf Ur Culture Indicated? (NO) Urine Test (Negative) Hepatitis A IgM Ab (Nonreactive) Hep Bs Antigen (Nonreactive) Hep B Core IgM Ab (Nonreactive) HIV Ag/Ab Combo Qual (Nonreactive) Attestation Statement - Attestation Attestation: I, Abraham Rodríguez MD, personally evaluated this patient and discussed their management with the resident physician. I reviewed the resident's note and agree with the documented findings, medical decision making, and plan of care. 32-year-old female presents to the emergency department by EMS with a three-day history of having sharp stabbing pleuritic right sided chest pain which is worse with breathing or movement. She complains of shortness of breath. Also chills and fever. No significant cough. No vomiting. Patient does have a history of IV drug abuse in the past. On examination patient is a well-developed well-nourished female in mild distress. She is alert and oriented 3. There is no cyanosis. She is mildly diaphoretic. Breath sounds are equal bilaterally. No rales or wheezes noted. Heart is regular with a marked tachycardia. Abdomen soft and nontender with present bowel sounds. Workup initiated including blood cultures and a CTA of the chest. At shift change patient is signed out to the oncoming dayshift team, Dr. Mane and Dr. Cony Monk.
[2018-04-10] MEDS ORDERED: cefTRIAXone 2,000 MG in Water for inj. (sterile) 20 ML 20 ML IVP ONE (07:41)
--- NOTE | 2018-04-10 07:44 | Emergency Department Note ---
Disposition Clinical Impression: History of drug use, Transaminitis, Multifocal pneumonia Chest pain Qualifiers: Chest pain type: unspecified Qualified Code(s): R07.9 - Chest pain, unspecified Fever Qualifiers: Fever type: due to other condition Qualified Code(s): R50.81 - Fever presenting with conditions classified elsewhere Sepsis Qualifiers: Sepsis type: sepsis due to unspecified organism Qualified Code(s): A41.9 - Sepsis, unspecified organism Disposition: Admitted As Inpatient Condition: Fair Referrals: NONE,PCP [Primary Care Provider] - Forms: ED Satisfaction Letter Time of Disposition: 08:48 General Adult HPI - General Chief complaint: ED Chest Pain Stated complaint: chest pain Time Seen by Provider: 04/10/18 06:15 Source: EMS Mode of arrival: EMS Limitations: no limitations - History of Present Illness HPI Narrative: Patient was signed by the prior provider. Please see their documentation for complete history and physical. Pain Scale: 7 - Related Data Home Medications Medication Instructions Recorded Confirmed Ibuprofen 11/01/17 Tylenol 11/01/17 Previous Rx's Medication Instructions Recorded Sulfamethoxazole/Trimeth DS 1 each PO BID #20 tablet 11/01/17 [Bactrim DS] cephALEXin [Keflex] 500 mg PO TID #30 capsule 11/01/17 Ibuprofen [Motrin] 800 mg PO Q8HR #20 tablet 01/05/18 Sulfamethoxazole/Trimeth DS 1 each PO BID #20 tablet 01/05/18 [Bactrim DS] cephALEXin [Keflex] 500 mg PO QID #28 capsule 01/05/18 Allergies Allergy/AdvReac Type Severity Reaction Status Date / Time ondansetron AdvReac Headache Verified 11/01/17 19:17 [From Zofran (as hydrochloride)] tramadol [From Ultram] AdvReac Headache Verified 11/01/17 19:17 Constitutional: Denies: fever, chills Cardiovascular: Reports: chest pain. Denies: palpitations, dyspnea on exertion, edema, syncope Respiratory: Reports: dyspnea, other (pain with inspiration). Denies: cough, wheezes, hemoptysis, sputum production Gastrointestinal: Denies: abdominal pain, nausea, vomiting Musculoskeletal: Denies: back pain, neck pain Integumentary: Denies: rash Past Medical History - Past Medical History Medical history: Reports: no medical history Surgical history: Reports: cholecystectomy Psychiatric history: Reports: no psych history - Social History Smoking Status: Current every day smoker Smokeless Tobacco Status: No Alcohol use: Reports: none Drug use: Reports: marijuana, methamphetamine, IV Drug Use Physical Exam - General Limitations: no limitations General appearance: alert, in distress (Sitting forward on the bed holding her chest. Tachypnic and tachycardic. Appears to be having pain with inspiration. Very warm to touch. ) Course - Reevaluation(s) Reevaluation #1: Patient seen and examined. History of IVDU and alpha one antitrypsin deficency. Patient confirms 3 days of chest pain primarily right-sided. Worse with deep inspiration. States she has used IV drug use in the past. Notes she has used heroin as well as methamphetamine. Last use of illicit drugs was approximately 2 weeks ago where she used meth. Patient noted diaphoresis yesterday. No fevers at home. Patient denies any cough. No nausea or vomiting. Time: 07:49 Vital Signs Temperature 100.4 F H 04/10/18 06:15 Pulse Rate 139 04/10/18 06:15 Respiratory Rate 26 04/10/18 06:15 Blood Pressure 137/77 04/10/18 06:15 O2 Sat by Pulse Oximetry 100 04/10/18 06:15 Temperature 100.4 F H 04/10/18 06:15 Pulse Rate 119 04/10/18 08:36 Respiratory Rate 25 04/10/18 08:36 Blood Pressure 104/45 04/10/18 08:36 O2 Sat by Pulse Oximetry 94 04/10/18 08:36 Oxygen Delivery Oxygen Delivery Nasal Cannula Medical Decision Making - [facility] Narrative Medical decision making narrative: Patient with a history of IV drug use presents for initial chest pain. High index of suspicion for endocarditis. Patient was fluid resuscitated. 3 sets of blood cultures and placed on appropriate antibiotics. Patient CT scan shows multifocal pneumonia. On bedside echo no vegetations were noted. Patient's heart and vitals improved during the ED course. Patient also has some marked bladder abnormalities with transaminitis likely secondary to her alpha-1 antitrypsin deficiency however given history of IV drug use patient should be s creened for hepatitis C. Patient will be admitted to the hospital service for further evaluation and management. - Lab Data Lab results reviewed: Yes I reviewed the patient's lab results. Result diagrams: 04/10/18 06:40 04/10/18 06:40 Lab Results 04/10/18 04/10/18 04/10/18 Range/Units 06:40 06:40 06:47 WBC 7.1 (4.3-11.1) K/mcL RBC 4.15 (3.82-4.97) M/mcL Hgb 12.2 (11.5-15.4) g/dL Hct 34.9 L (35.3-44.9) % MCV 84.1 (83.0-100.0) fL MCH 29.4 (28.0-33.3) pg MCHC 35.0 (31.6-35.5) g/dL RDW 14.1 (11.5-14.5) % Plt Count 182 (140-400) K/mcL MPV 11.8 (9.4-12.4) fL Immature Gran % 0.8 (0-4) % Seg Neutrophils % 81.2 % Lymphocytes % 11.6 % Monocytes % 5.9 % Eosinophils % 0.1 % Basophils % 0.4 % Neutrophils # 5.8 (1.6-8.9) K/mcL Lymphocytes # 0.8 (0.6-4.6) K/mcL Monocytes # 0.4 (0.0-1.3) K/mcL Eosinophils # 0.0 (0.0-0.6) K/mcL Basophils # 0.0 (0.0-0.2) K/mcL Nucleated RBCs/100 WBC 0.3 H (0) /100 WBC Sodium 126 L (136-145) mEq/L Potassium 4.4 (3.5-5.1) mEq/L Chloride 92 L (98-107) mEq/L Carbon Dioxide 23 (23-29) mEq/L BUN 14 (6-20) mg/dL Creatinine 0.67 (0.60-1.20) mg/dL Est GFR ( Amer) > 60 (> 60) Est GFR (Non-Af Amer) > 60 (> 60) BUN/Creatinine Ratio 21 (6-26) Glucose 127 H (70-105) mg/dL Calculated Osmolality 264 L (280-300) Lactic Acid 2.1 (0.5-2.2) mmol/L Calcium 9.5 (8.6-10.3) mg/dL Phosphorus 1.9 L (2.7-4.5) mg/dL Magnesium 1.7 (1.6-2.6) mg/dL Total Bilirubin 1.2 H (0.3-1.0) mg/dL Direct Bilirubin 0.3 H (0.0-0.2) mg/dL Indirect Bilirubin 0.9 (0.0-1.2) mg/dL AST 131 H (13-39) Units/L ALT 330 H (7-52) Units/L Alkaline Phosphatase 137 H (34-104) Units/L Troponin I < 0.03 (< 0.04) ng/mL Serum Total Protein 7.3 (6.4-8.9) g/dL Albumin 3.8 (3.5-5.7) g/dL Globulin 3.5 (2.4-3.5) g/dL Albumin/Globulin Ratio 1.1 (1.1-2.2) Lipase < 3 L (11-82) Units/L Urine Color (Yellow) Urine Clarity (Clear) Urine pH (5.0-8.0) pH Units Ur Specific [place] (1.010-1.025) Urine Protein (Neg-Trace) mg/dL Urine Glucose (UA) (Normal) mg/dL Urine Ketones (Negative) mg/dL Urine Blood (Negative) Urine Nitrite (Negative) Urine Bilirubin (Negative) Urine Urobilinogen (Normal) mg/dL Ur Leukocyte Esterase (Negative) Urine Microscopic RBC (0-3) per hpf Urine Microscopic WBC (0-3) per hpf Ur Squamous Epith Cells (None-Few) per lpf Urine Bacteria (None-Few) per hpf Hyaline Casts (None-Few) per lpf Ur Culture Indicated? (NO) 04/10/18 Range/Units 07:13 WBC (4.3-11.1) K/mcL RBC (3.82-4.97) M/mcL Hgb (11.5-15.4) g/dL Hct (35.3-44.9) % MCV (83.0-100.0) fL MCH (28.0-33.3) pg MCHC (31.6-35.5) g/dL RDW (11.5-14.5) % Plt Count (140-400) K/mcL MPV (9.4-12.4) fL Immature Gran % (0-4) % Seg Neutrophils % % Lymphocytes % % Monocytes % % Eosinophils % % Basophils % % Neutrophils # (1.6-8.9) K/mcL Lymphocytes # (0.6-4.6) K/mcL Monocytes # (0.0-1.3) K/mcL Eosinophils # (0.0-0.6) K/mcL Basophils # (0.0-0.2) K/mcL Nucleated RBCs/100 WBC (0) /100 WBC Sodium (136-145) mEq/L Potassium (3.5-5.1) mEq/L Chloride (98-107) mEq/L Carbon Dioxide (23-29) mEq/L BUN (6-20) mg/dL Creatinine (0.60-1.20) mg/dL Est GFR ( Amer) (> 60) Est GFR (Non-Af Amer) (> 60) BUN/Creatinine Ratio (6-26) Glucose (70-105) mg/dL Calculated Osmolality (280-300) Lactic Acid (0.5-2.2) mmol/L Calcium (8.6-10.3) mg/dL Phosphorus (2.7-4.5) mg/dL Magnesium (1.6-2.6) mg/dL Total Bilirubin (0.3-1.0) mg/dL Direct Bilirubin (0.0-0.2) mg/dL Indirect Bilirubin (0.0-1.2) mg/dL AST (13-39) Units/L ALT (7-52) Units/L Alkaline Phosphatase (34-104) Units/L Troponin I (< 0.04) ng/mL Serum Total Protein (6.4-8.9) g/dL Albumin (3.5-5.7) g/dL Globulin (2.4-3.5) g/dL Albumin/Globulin Ratio (1.1-2.2) Lipase (11-82) Units/L Urine Color Dark Yellow (Yellow) Urine Clarity Cloudy A (Clear) Urine pH 6.0 (5.0-8.0) pH Units Ur Specific [place] 1.017 (1.010-1.025) Urine Protein 100 H (Neg-Trace) mg/dL Urine Glucose (UA) Normal (Normal) mg/dL Urine Ketones Negative (Negative) mg/dL Urine Blood Moderate H (Negative) Urine Nitrite Positive A (Negative) Urine Bilirubin Small H (Negative) Urine Urobilinogen 4.0 H (Normal) mg/dL Ur Leukocyte Esterase Small H (Negative) Urine Microscopic RBC 0-3 (0-3) per hpf Urine Microscopic WBC 5-15 H (0-3) per hpf Ur Squamous Epith Cells Many H (None-Few) per lpf Urine Bacteria Many H (None-Few) per hpf Hyaline Casts None Seen (None-Few) per lpf Ur Culture Indicated? NO. A (NO) - Radiology Data Radiology results reviewed: Yes I reviewed the patient's radiology results. Chest CTA 04/10/18 06:42 IMPRESSION: Negative study for pulmonary embolism. Patchy areas of consolidation and ground-glass opacity to the lungs bilaterally with lower lung zone predominance concerning for multifocal pneumonia. Superimposed scattered peripheral nodular opacities, many of which demonstrate cavitation most compatible with septic emboli given the clinical history. Continued follow-up is recommended. Small right pleural effusion and trace left pleural effusion. Nonspecific mediastinal and bilateral hilar lymphadenopathy but likely reactive. Attention can be paid on follow-up. D/ / 04/10/2018 08:34:27 Phillip Shields MD / formerly [facility] Interpreting Provider: Phillip Shields MD - EKG Data EKG #1 EKG attestation: Yes I reviewed and interpreted this EKG. EKG shows normal: sinus rhythm Rate: tachycardia Rhythm: NSR [place]/QRS: normal T wave inversions noted in: v1 Interpretation: no acute changes, nonspecific ST-T wave changes S.B.AJerson - S.B.A.RBurak Situation: Demographics Background: Presenting Complaint Assessment: Vital Signs, Course and respsone to treatment, Patient/Family Expectation Recommendation: Barrier(s) to disposition, Recommendation based on pending studies, treatments, or consults S.B.A.RBurak Report Given to: Dr. Riley RosenbaumBBurakAJerson Repor Time: 08:48
[2018-04-10] MEDS ORDERED: 0.9 % Sodium Chloride 1,000 ML IVC SCH (07:45)
[2018-04-10 07:56] LABS: Neutrophils # 5.8 K/mcL (1.6-8.9)
--- NOTE | 2018-04-10 08:45 | Emergency Department Note ---
Disposition Clinical Impression: History of drug use, Transaminitis Chest pain Qualifiers: Chest pain type: unspecified Qualified Code(s): R07.9 - Chest pain, unspecified Fever Qualifiers: Fever type: due to other condition Qualified Code(s): R50.81 - Fever presenting with conditions classified elsewhere Sepsis Qualifiers: Sepsis type: sepsis due to unspecified organism Qualified Code(s): A41.9 - Sepsis, unspecified organism Disposition: Admitted As Inpatient Condition: Fair Referrals: NONE,PCP [Primary Care Provider] - Forms: ED Satisfaction Letter General Adult HPI - General Chief complaint: ED Chest Pain Stated complaint: chest pain Time Seen by Provider: 04/10/18 06:15 Source: EMS Mode of arrival: EMS Limitations: no limitations - History of Present Illness Pain Scale: 7 - Related Data Home Medications Medication Instructions Recorded Confirmed Ibuprofen 11/01/17 Tylenol 11/01/17 Previous Rx's Medication Instructions Recorded Sulfamethoxazole/Trimeth DS 1 each PO BID #20 tablet 11/01/17 [Bactrim DS] cephALEXin [Keflex] 500 mg PO TID #30 capsule 11/01/17 Ibuprofen [Motrin] 800 mg PO Q8HR #20 tablet 01/05/18 Sulfamethoxazole/Trimeth DS 1 each PO BID #20 tablet 01/05/18 [Bactrim DS] cephALEXin [Keflex] 500 mg PO QID #28 capsule 01/05/18 Allergies Allergy/AdvReac Type Severity Reaction Status Date / Time ondansetron AdvReac Headache Verified 11/01/17 19:17 [From Zofran (as hydrochloride)] tramadol [From Ultram] AdvReac Headache Verified 11/01/17 19:17 Constitutional: Denies: fever, chills Cardiovascular: Reports: chest pain. Denies: palpitations, dyspnea on exertion, edema, syncope Respiratory: Reports: dyspnea, other (pain with inspiration). Denies: cough, wheezes, hemoptysis, sputum production Gastrointestinal: Denies: abdominal pain, nausea, vomiting Musculoskeletal: Denies: back pain, neck pain Integumentary: Denies: rash Past Medical History - Past Medical History Medical history: Reports: no medical history Surgical history: Reports: cholecystectomy Psychiatric history: Reports: no psych history - Social History Smoking Status: Current every day smoker Smokeless Tobacco Status: No Alcohol use: Reports: none Drug use: Reports: marijuana, methamphetamine, IV Drug Use Physical Exam - General Limitations: no limitations General appearance: alert, in distress (Sitting forward on the bed holding her chest. Tachypnic and tachycardic. Appears to be having pain with inspiration. Very warm to touch. ) Course Vital Signs Temperature 100.4 F H 04/10/18 06:15 Pulse Rate 139 04/10/18 06:15 Respiratory Rate 26 04/10/18 06:15 Blood Pressure 137/77 04/10/18 06:15 O2 Sat by Pulse Oximetry 100 04/10/18 06:15 Temperature 100.4 F H 04/10/18 06:15 Pulse Rate 119 04/10/18 08:36 Respiratory Rate 25 04/10/18 08:36 Blood Pressure 104/45 04/10/18 08:36 O2 Sat by Pulse Oximetry 94 04/10/18 08:36 Oxygen Delivery Oxygen Delivery Nasal Cannula Medical Decision Making - Lab Data Result diagrams: 04/10/18 06:40 04/10/18 06:40 Lab Results 04/10/18 04/10/18 04/10/18 Range/Units 06:40 06:40 06:47 WBC 7.1 (4.3-11.1) K/mcL RBC 4.15 (3.82-4.97) M/mcL Hgb 12.2 (11.5-15.4) g/dL Hct 34.9 L (35.3-44.9) % MCV 84.1 (83.0-100.0) fL MCH 29.4 (28.0-33.3) pg MCHC 35.0 (31.6-35.5) g/dL RDW 14.1 (11.5-14.5) % Plt Count 182 (140-400) K/mcL MPV 11.8 (9.4-12.4) fL Immature Gran % 0.8 (0-4) % Seg Neutrophils % 81.2 % Lymphocytes % 11.6 % Monocytes % 5.9 % Eosinophils % 0.1 % Basophils % 0.4 % Neutrophils # 5.8 (1.6-8.9) K/mcL Lymphocytes # 0.8 (0.6-4.6) K/mcL Monocytes # 0.4 (0.0-1.3) K/mcL Eosinophils # 0.0 (0.0-0.6) K/mcL Basophils # 0.0 (0.0-0.2) K/mcL Nucleated RBCs/100 WBC 0.3 H (0) /100 WBC Sodium 126 L (136-145) mEq/L Potassium 4.4 (3.5-5.1) mEq/L Chloride 92 L (98-107) mEq/L Carbon Dioxide 23 (23-29) mEq/L BUN 14 (6-20) mg/dL Creatinine 0.67 (0.60-1.20) mg/dL Est GFR ( Amer) > 60 (> 60) Est GFR (Non-Af Amer) > 60 (> 60) BUN/Creatinine Ratio 21 (6-26) Glucose 127 H (70-105) mg/dL Calculated Osmolality 264 L (280-300) Lactic Acid 2.1 (0.5-2.2) mmol/L Calcium 9.5 (8.6-10.3) mg/dL Phosphorus 1.9 L (2.7-4.5) mg/dL Magnesium 1.7 (1.6-2.6) mg/dL Total Bilirubin 1.2 H (0.3-1.0) mg/dL Direct Bilirubin 0.3 H (0.0-0.2) mg/dL Indirect Bilirubin 0.9 (0.0-1.2) mg/dL AST 131 H (13-39) Units/L ALT 330 H (7-52) Units/L Alkaline Phosphatase 137 H (34-104) Units/L Troponin I < 0.03 (< 0.04) ng/mL Serum Total Protein 7.3 (6.4-8.9) g/dL Albumin 3.8 (3.5-5.7) g/dL Globulin 3.5 (2.4-3.5) g/dL Albumin/Globulin Ratio 1.1 (1.1-2.2) Lipase < 3 L (11-82) Units/L Urine Color (Yellow) Urine Clarity (Clear) Urine pH (5.0-8.0) pH Units Ur Specific [place] (1.010-1.025) Urine Protein (Neg-Trace) mg/dL Urine Glucose (UA) (Normal) mg/dL Urine Ketones (Negative) mg/dL Urine Blood (Negative) Urine Nitrite (Negative) Urine Bilirubin (Negative) Urine Urobilinogen (Normal) mg/dL Ur Leukocyte Esterase (Negative) Urine Microscopic RBC (0-3) per hpf Urine Microscopic WBC (0-3) per hpf Ur Squamous Epith Cells (None-Few) per lpf Urine Bacteria (None-Few) per hpf Hyaline Casts (None-Few) per lpf Ur Culture Indicated? (NO) 04/10/18 Range/Units 07:13 WBC (4.3-11.1) K/mcL RBC (3.82-4.97) M/mcL Hgb (11.5-15.4) g/dL Hct (35.3-44.9) % MCV (83.0-100.0) fL MCH (28.0-33.3) pg MCHC (31.6-35.5) g/dL RDW (11.5-14.5) % Plt Count (140-400) K/mcL MPV (9.4-12.4) fL Immature Gran % (0-4) % Seg Neutrophils % % Lymphocytes % % Monocytes % % Eosinophils % % Basophils % % Neutrophils # (1.6-8.9) K/mcL Lymphocytes # (0.6-4.6) K/mcL Monocytes # (0.0-1.3) K/mcL Eosinophils # (0.0-0.6) K/mcL Basophils # (0.0-0.2) K/mcL Nucleated RBCs/100 WBC (0) /100 WBC Sodium (136-145) mEq/L Potassium (3.5-5.1) mEq/L Chloride (98-107) mEq/L Carbon Dioxide (23-29) mEq/L BUN (6-20) mg/dL Creatinine (0.60-1.20) mg/dL Est GFR ( Amer) (> 60) Est GFR (Non-Af Amer) (> 60) BUN/Creatinine Ratio (6-26) Glucose (70-105) mg/dL Calculated Osmolality (280-300) Lactic Acid (0.5-2.2) mmol/L Calcium (8.6-10.3) mg/dL Phosphorus (2.7-4.5) mg/dL Magnesium (1.6-2.6) mg/dL Total Bilirubin (0.3-1.0) mg/dL Direct Bilirubin (0.0-0.2) mg/dL Indirect Bilirubin (0.0-1.2) mg/dL AST (13-39) Units/L ALT (7-52) Units/L Alkaline Phosphatase (34-104) Units/L Troponin I (< 0.04) ng/mL Serum Total Protein (6.4-8.9) g/dL Albumin (3.5-5.7) g/dL Globulin (2.4-3.5) g/dL Albumin/Globulin Ratio (1.1-2.2) Lipase (11-82) Units/L Urine Color Dark Yellow (Yellow) Urine Clarity Cloudy A (Clear) Urine pH 6.0 (5.0-8.0) pH Units Ur Specific [place] 1.017 (1.010-1.025) Urine Protein 100 H (Neg-Trace) mg/dL Urine Glucose (UA) Normal (Normal) mg/dL Urine Ketones Negative (Negative) mg/dL Urine Blood Moderate H (Negative) Urine Nitrite Positive A (Negative) Urine Bilirubin Small H (Negative) Urine Urobilinogen 4.0 H (Normal) mg/dL Ur Leukocyte Esterase Small H (Negative) Urine Microscopic RBC 0-3 (0-3) per hpf Urine Microscopic WBC 5-15 H (0-3) per hpf Ur Squamous Epith Cells Many H (None-Few) per lpf Urine Bacteria Many H (None-Few) per hpf Hyaline Casts None Seen (None-Few) per lpf Ur Culture Indicated? NO. A (NO) Attestation Statement - Attestation Attestation: I examined this patient and my medical decision-making was reviewed with the Resident Physician. I agree with the documented findings, disposition and treatment plan as described except to the extent set forth below. accepted sign out from Dr Savage and [place]if[place]. Mushtaq is a IVDA and has used heorin in the past and presents in with sIRS criteria and likley sepsis. It appears that we are waiting fot he CTA chest to rule out PE. We have pre- emptively started ABX and is appears on CTA she has mutlifocal pnuemoonia and septic emboli.
[2018-04-10] MEDS ORDERED: Naloxone 0.4 MG/ML INJ IVP PRN (08:53)
--- NOTE | 2018-04-10 09:49 | Internal Med History&Physical ---
Date of Encounter: 04/10/18 Time of Encounter: 09:00 Internal Medicine - H&P: HPI Chief complaint: Right sided chest pain, fevers and chills of about 3 days duration History of present illness: Ms. Courtney is a 32 year old female with history of IV drug abuse presenting with complaints of right sided, chest pain, fevers, chills and shortness of breath of about 3 days duration. Patient admits to IV drug abuse, last use was reportedly about 6 months ago. She reports she was walking along [address] about 3 days ago when she she noticed she was getting progressively short of breath and experiencing chest pain with deep breaths. Symptoms have been getting progressively worse with fevers and chills. She denies any coughing, nausea, vomiting or diarrhea. In the ER, a CT chest was doen showing multifocal pneumonia and septic emboli. She was started on vanc and ceftriaxone and is being admitted for further management Past Med Surg Social Fam HX - Past Medical History Medical history: no medical history Additional medical history: Cellulitis Psychiatric history: no psych history - Past Surgical History Surgical History: cholecystectomy Additional surgical history: tubal ligation - Social History Smoking Status: Current every day smoker Smokeless Tobacco Status: No Alcohol use: none Drug use: marijuana, methamphetamine, IV Drug Use - Family History Maternal Grandmother Hx Family Cancer: Yes Internal Medicine - H&P: Meds Ibuprofen 11/01/17 [History] Sulfamethoxazole/Trimeth DS [Bactrim DS] 1 each PO BID #20 tablet 11/01/17 [Rx] Tylenol 11/01/17 [History] cephALEXin [Keflex] 500 mg PO TID #30 capsule 11/01/17 [Rx] Ibuprofen [Motrin] 800 mg PO Q8HR #20 tablet 01/05/18 [Rx] Sulfamethoxazole/Trimeth DS [Bactrim DS] 1 each PO BID #20 tablet 01/05/18 [Rx] cephALEXin [Keflex] 500 mg PO QID #28 capsule 01/05/18 [Rx] Allergy/AdvReac Type Severity Reaction Status Date / Time ondansetron AdvReac Headache Verified 11/01/17 19:17 [From Zofran (as hydrochloride)] tramadol [From Ultram] AdvReac Headache Verified 11/01/17 19:17 All Systems PM: A 10-system review of systems was performed and is negative for pertinent findings except as documented above in the HPI. - Constitutional Constitutional: chills, fever(s), no night sweats - EENT Eyes: no change in vision, no discharge, no pain, no photophobia Ears: no ear discharge, no ear pain, no tinnitus Nose, mouth and throat: no dysphagia, no nasal discharge, no neck pain, no sore throat - Cardiovascular Cardiovascular ROS IM: chest pain, no diaphoresis, no dyspnea, no lightheadedness, no palpitations, no syncope - Respiratory Respiratory: no cough, no dyspnea, no wheezing, no excessive phlegm production - Gastrointestinal Gastrointestinal: no abdominal pain, no diarrhea, no hematemesis, no hematochezia, no melena, no nausea, no vomiting - Genitourinary Genitourinary: no change in urinary stream, no dysuria, no flank pain, no hematuria - Musculoskeletal Musculoskeletal ROS IM: no numbness, no tingling - Integumentary Integumentary IM: no rash, no unusual bruising - Neurological Neurological ROS: no confusion, no convulsions, no focal weakness, no numbness, no tingling, no tremor(s) - Hematologic/Lymphatic Hematologic/Lymphatic: no easy bruising - Constitutional Vitals: Temp Pulse Resp BP Pulse Ox 100.4 F H 115 18 134/76 98 04/10/18 06:15 04/10/18 09:19 04/10/18 09:19 04/10/18 09:19 04/10/18 09:19 Exam: NAD - Head Head exam: Present: atraumatic, normocephalic - Eye Eye exam: Present: PERRL, conjuntiva pink, sclera anicteric Pupils: Present: PERRL - Neck Neck exam general surgery: Present: supple, trachea midline. Absent: lymphadenopathy - Respiratory Respiratory exam: Present: CTAB. Absent: accessory muscle use, rales, rhonchi, wheezes - Cardiovascular Cardiovascular exam: Present: RRR, +S1, +S2. Absent: diastolic murmur, gallop, rubs, systolic murmur - GI/Abdominal GI/Abdominal exam: Present: normal bowel sounds, soft, no peritoneal signs. Absent: distended, tenderness - Extremities Exam Extremities exam: Present: warm, radial pulses palpable and symmetrical. Abs ent: calf tenderness, cyanotic, pedal edema - Neurological Exam Neurological exam: Present: CN II-XII intact, oriented X3, no focal deficits. Absent: pronater drift, facial droop, speech deficit - Skin Skin exam: Present: dry, intact Internal Med - H&P Results - Labs CBC & Chem 7: 04/10/18 06:40 04/10/18 06:40 Labs: Short CBC 04/10/18 Range/Units 06:40 WBC 7.1 (4.3-11.1) K/mcL Hgb 12.2 (11.5-15.4) g/dL Hct 34.9 L (35.3-44.9) % Plt Count 182 (140-400) K/mcL Neutrophils # 5.8 (1.6-8.9) K/mcL BMP 04/10/18 06:40 Sodium 126 L Potassium 4.4 Chloride 92 L Carbon Dioxide 23 BUN 14 Creatinine 0.67 Glucose 127 H Calcium 9.5 Cardiac Enzymes 04/10/18 Range/Units 06:40 Troponin I < 0.03 (< 0.04) ng/mL Liver Function 04/10/18 Range/Units 06:40 Total Bilirubin 1.2 H (0.3-1.0) mg/dL Direct Bilirubin 0.3 H (0.0-0.2) mg/dL AST 131 H (13-39) Units/L ALT 330 H (7-52) Units/L Alkaline Phosphatase 137 H (34-104) Units/L Albumin 3.8 (3.5-5.7) g/dL Urine 04/10/18 Range/Units 07:13 Urine Color Dark Yellow (Yellow) Urine Clarity Cloudy A (Clear) Urine pH 6.0 (5.0-8.0) pH Units Ur Specific [place]abb 1.017 (1.010-1.025) Urine Protein 100 H (Neg-Trace) mg/dL Urine Glucose (UA) Normal (Normal) mg/dL - Impressions ITS Impressions Chest CTA 04/10/18 06:42 IMPRESSION: Negative study for pulmonary embolism. Patchy areas of consolidation and ground-glass opacity to the lungs bilaterally with lower lung zone predominance concerning for multifocal pneumonia. Superimposed scattered peripheral nodular opacities, many of which demonstrate cavitation most compatible with septic emboli given the clinical history. Continued follow-up is recommended. Small right pleural effusion and trace left pleural effusion. Nonspecific mediastinal and bilateral hilar lymphadenopathy but likely reactive. Attention can be paid on follow-up. D/ / 04/10/2018 08:34:27 Phillip Shields MD / [email or web address] Interpreting Provider: Phillip Shields MD - Assessment and plan (1) Sepsis Current Visit: Yes Status: Acute Assessment and plan: Pt came in with fevers , tachycardia and a multifocal pneumonia in setting of IV drug abuse CT chest shows septic emboli and pneumonia. Will obtain 2D echo to assess for infective endocarditis, blood cultures x3 and start on antibiotics with vanc and ceftriaxone ID consulted and appreciate recs Qualifiers: Sepsis type: sepsis due to unspecified organism Qualified Code(s): A41.9 - Sepsis, unspecified organism (2) Multifocal pneumonia Current Visit: Yes Status: Acute Assessment and plan: Continue antibiotics with vanc and ceftriaxone. follow up cultures (3) Septic embolism Current Visit: Yes Status: Acute Assessment and plan: See #1. Possibly /2 to IV drug abuse. Continue antibiotics Obtain HIV test (4) IV drug abuse Current Visit: Yes Status: Acute Assessment and plan: Counseled (5) Hyponatremia Current Visit: Yes Status: Acute Assessment and plan: Iv fluids with normal saline. repeat BMP (6) DVT prophylaxis Current Visit: Yes Status: Acute Assessment and plan: SCDs - Time Spent With Patient Total time spent is greater than 50% in coordination of care (as documented) at patient's floor/unit and/or counseling patient:
--- NOTE | 2018-04-10 14:02 | Infectious Disease Consult ---
Date of Encounter: 04/10/18 Time of Encounter: 14:00 Assessment and Plan (1) Sepsis Status: Acute Assessment and plan: The patient had 3 sepsis criteria on admission. Likely secondary to multifocal pneumonia. Afebrile since admission. Tachycardia has improved tachypnea has resolved. White blood cell count is normal. Blood cultures drawn 04/10/18 are pending 3 sets. Recommendations: Await blood cultures. Check HIV and hepatitis profile. Given the cavitary lung lesions, concern for TB, although the patient denies any known exposure history and does not have any other symptoms. We will place in airborne precautions for now. Place PPD. If negative in 48 hours, can discontinue airborne precautions. AFB smear 3, each one 8 hours apart. Consider pulmonary to evaluate. Consider GI to evaluate. Check S. pneumo and Legionella UATs. Send sputum for culture if the patient is able to provide an adequate specimen. Check MRSA screen. Check RIP. Continue Vancomycin IV. Pharmacy to dose. Goal trough ~15. Discontinue Rocephin. Start Zosyn 3.375 grams IV Q8H. Start Levaquin 750mg IV daily. If UATs are negative, okay to discontinue. Duration of treatment depends on the clinical picture. Monitor renal function and for drug toxicity and dose-adjust antibiotics. Qualifiers: Sepsis type: sepsis due to unspecified organism Qualified Code(s): A41.9 - Sepsis, unspecified organism (2) Multifocal pneumonia Status: Acute Assessment and plan: Location: Multifocal. Causative organism: Unclear. Check UATs, sputum culture, RIP, and MRSA screen. Currently on Vanc and Rocephin. (3) Septic embolism Status: Acute Assessment and plan: CTA of the chest shows cavitary lung lesions bilaterally. Given history of IVDU, concern for septic emboli. Denies known exposure to TB. States has not been in the , but spent 4 years in long term from [id number]. Denies hemoptysis or night sweats or weight loss. Low index of suspicion for TB, but will rule out. Currently on Vanc and Rocephin. (4) Transaminitis Status: Acute Assessment and plan: Etiology unclear. Check hepatitis profile. Consider GI to evaluate. (5) Hyponatremia Status: Acute (6) Tobacco dependence Status: Chronic (7) IV drug abuse Status: Acute Assessment and plan: Check hepatitis profile and HIV status. Withdrawal symptoms management per the primary team. Infectious Disease HPI - Data of Consult Patient: new to practice Consult date: 04/10/18 Requesting Physician: Piyush Lin Primary Care Provider: PCP NONE - Consult Narrative Reason for consult: Cavitary lung lesion History of present illness: Ms. Courtney is a 32 year old female with a past medical history of IV drug use, alpha 1-antitrypsin deficiency, and status post cholecystectomy. Patient was admitted to the hospital 2 for sepsis, multifocal pneumonia, and chest pain. We are consulted for further workup and treatment recommendations for cavitary lung lesions. Briefly, the patient is a 32-year-old female with a past medical history as stated above. The patient presented to the emergency department on the day of admission with a 3 day history of chest pain and progressively worsening shortness of breath. Upon arrival, she was febrile, tachycardic, and tachypneic. Laboratory studies reveal a normal white blood cell count, renal function, and lactic acid. LFTs were mildly elevated with a total bilirubin of 1.2, AST of 131, AST of 330, and alkaline phosphatase of 137. Troponin and lipase were normal. Urinalysis appeared contaminated. Blood cultures were obtained 3 sets. She had a CTA of the chest that was negative for PE, but did show patchy areas of consolidation and groundglass opacity to the lungs bilaterally with lower lung zone predominance concerning for multifocal pneumonia. Superimposed scattered peripheral nodular opacities, many of which demonstrate cavitation most compatible with septic emboli given the clinical history. There is a small right pleural effusion and trace left pleural effusion. Nonspecific mediastinal and bilateral hilar lymphadenopathy, likely reactive. The patient was started on vancomycin Rocephin and admitted to the hospital for further evaluation. During my exam today, the patient endorses a history as stated above. She endorses a recent history of fevers, chills, or rigors for the past 3 days with progressively worsening chest pain and shortness of breath. She states the pain is worse with deep inspiration or exertion and is positional. She denies cough or hemoptysis. She denies any headache or neck pain. She denies congestion, earache, or sore throat. She denies nausea, vomiting, diarrhea, or constipation. Denies abdominal pain or urinary complaints. States her appetite has been pretty poor for the past few days. Denies any pain in her back, joints, or extremities. She denies any oral thrush or any skin lesions. The patient lives at home with her 2 children. She does not work outside the [employer]. She denies any chronic infectious diseases. She states she is down to smoking 1 cigarette per day. She denies any alcohol use. She states her last IV drug use was 6 months ago and she smoked meth about 2 weeks ago. She is currently going to a local Suboxone clinic. She does tell me that she had a negative PPD test last week because she switched Suboxone clinics. She denies any recent travel outside the [facility]. She does have a dog at home. CC: Piyush Lin Past Med Surg Social Fam HX - Past Medical History Attestation: Yes The following information was validated with the patient. Source: patient, old records reviewed, nursing notes reviewed Medical history: no medical history Psychiatric history: no psych history - Past Surgical History Surgical History: cholecystectomy Additional surgical history: tubal ligation - Social History Smoking Status: Current every day smoker Smokeless Tobacco Status: No Alcohol use: none Drug use: marijuana, methamphetamine, IV Drug Use Occupational status: unemployed Current living situation: Home, With Family Activity Level: Independent ambulation Recent Out of Country Travel Within the Last 8 Weeks: No Exposure or Possible Exposure to Illness During Travel: No - Family History Maternal Grandmother Hx Family Cancer: Yes Infectious Disease-CN:Meds Ibuprofen 11/01/17 [History] Sulfamethoxazole/Trimeth DS [Bactrim DS] 1 each PO BID #20 tablet 11/01/17 [Rx] Tylenol 11/01/17 [History] cephALEXin [Keflex] 500 mg PO TID #30 capsule 11/01/17 [Rx] Ibuprofen [Motrin] 800 mg PO Q8HR #20 tablet 01/05/18 [Rx] Sulfamethoxazole/Trimeth DS [Bactrim DS] 1 each PO BID #20 tablet 01/05/18 [Rx] cephALEXin [Keflex] 500 mg PO QID #28 capsule 01/05/18 [Rx] Allergy/AdvReac Type Severity Reaction Status Date / Time ondansetron AdvReac Headache Verified 11/01/17 19:17 [From Zofran (as hydrochloride)] tramadol [From Ultram] AdvReac Headache Verified 11/01/17 19:17 All systems: reviewed and no additional remarkable complaints except as stated Exam - Constitutional Vitals: Temp Pulse Resp BP Pulse Ox 100.4 F H 100 16 135/76 97 04/10/18 06:15 04/10/18 12:33 04/10/18 13:30 04/10/18 13:30 04/10/18 12:33 General appearance: average body habitus, cooperative, no acute distress - Head Head exam: Present: atraumatic, normal inspection, normocephalic - Eye Eye exam: Present: EOMI, normal appearance, PERRL Pupils: Present: normal accommodation Additional comments: No subconjunctival hemorrhage noted. - ENT ENT exam: Present: mucous membranes moist - Neck Neck exam: Present: normal inspection - Respiratory Respiratory exam: Present: CTAB. Absent: rales, respiratory distress, rhonchi, wheezes - Cardiovascular Cardiovascular exam: Present: +S1, +S2, tachycardia. Absent: irregular rhythm - GI/Abdominal GI/Abdominal exam: Present: normal bowel sounds, soft. Absent: distended, tenderness - Extremities Exam Extremities exam: Present: normal inspection. Absent: joint swelling, pedal edema, tenderness - Neurological Exam Neurological exam: Present: alert, oriented X3, no focal deficits - Psychiatric Psychiatric exam: Present: normal affect, normal mood - Skin Skin exam: Present: dry, intact, normal color, warm Additional comments: No endocarditis stigmata noted. Infectious Disease CN: Results - Labs CBC & Chem 7: 04/10/18 06:40 04/10/18 06:40 Cultures: Cultures 04/10/18 08:44 Blood Culture - Preliminary Peripheral Venipuncture Culture is incubating and being continuously m onitored for growth. Final report to follow. 04/10/18 07:46 Blood Culture - Preliminary Peripheral Venipuncture Culture is incubating and being continuously monitored for growth. Final report to follow. 04/10/18 06:47 Blood Culture - Preliminary Peripheral Venipuncture Culture is incubating and being continuously monitored for growth. Final report to follow. Serology: Serology 04/10/18 04/10/18 Range/Units 07:13 07:13 Urine Color Dark Yellow (Yellow) Urine Clarity Cloudy A (Clear) Urine pH 6.0 (5.0-8.0) pH Units Ur Specific [place] 1.017 (1.010-1.025) Urine Protein 100 H (Neg-Trace) mg/dL Urine Glucose (UA) Normal (Normal) mg/dL Urine Ketones Negative (Negative) mg/dL Urine Blood Moderate H (Negative) Urine Nitrite Positive A (Negative) Urine Bilirubin Small H (Negative) Urine Urobilinogen 4.0 H (Normal) mg/dL Ur Leukocyte Esterase Small H (Negative) Urine Microscopic RBC 0-3 (0-3) per hpf Urine Microscopic WBC 5-15 H (0-3) per hpf Ur Squamous Epith Cells Many H (None-Few) per lpf Urine Bacteria Many H (None-Few) per hpf Hyaline Casts None Seen (None-Few) per lpf Ur Culture Indicated? NO. A (NO) Urine Test Negative (Negative) Consult Discharge Plan - Plan Referrals: NONE,PCP [Primary Care Provider] -
[2018-04-10] MEDS ORDERED: Tuberculin Skin Test (PPD) 5 TUB/0.1 ML VIAL ID ONE (14:31)
[2018-04-10] MEDS: 0.9 % Sodium Chloride 1,000 ML IVC SCH ×2 (14:40→19:47)
[2018-04-10 15:21] LABS: Hepatitis B Surface Antigen Nonreactive (Nonreactive)
[2018-04-10 15:50] LABS: HIV-1&2 Antibody & p24 Ag Nonreactive (Nonreactive)
[2018-04-10 15:51] LABS: Hepatitis B Core IgM Nonreactive (Nonreactive)
[2018-04-10 15:53] LABS: Hepatitis A Antibody IgM Nonreactive (Nonreactive)
[2018-04-10] MEDS: Piperacillin/Tazobactam 3.375 GM in 0.9 % Sodium Chloride Mini Bag 100 ML IVPB SCH ×2 (15:53→23:29)
[2018-04-10] MEDS: Levofloxacin 750 MG/150 ML 750 MG/150 ML BAG IVPB SCH (15:53)
[2018-04-10] MEDS: Ketorolac 15 MG/ML VIAL IVP PRN (15:54)
[2018-04-10 16:03] LABS: Adenovirus Not Detected (Not Detect); Bordetella Pertussis Not Detected (Not Detect); Chlamydophila pneumoniae Not Detected (Not Detect); Coronavirus 229E Not Detected (Not Detect); Coronavirus HKU1 Not Detected (Not Detect); Coronavirus NL63 Not Detected (Not Detect); Coronavirus OC43 Not Detected (Not Detect); Human Metapneumovirus Not Detected (Not Detect); Human Rhinovirus/Enterovirus Not Detected (Not Detect); Influenza A Subtype 2009 H1 Not Detected (Not Detect); Influenza A Untypeable Not Detected (Not Detect); Influenza B Not Detected (Not Detect); Mycoplasma pneumoniae Not Detected (Not Detect); Parainfluenza Virus 1 Not Detected (Not Detect); Parainfluenza Virus 2 Not Detected (Not Detect); Parainfluenza Virus 3 Not Detected (Not Detect); Parainfluenza Virus 4 Not Detected (Not Detect); Respiratory Syncytial Virus Not Detected (Not Detect)
[2018-04-10 19:16] LABS: Enterococcus by PCR Not Detected (Not Detect)
[2018-04-10 19:17] LABS: Acinetobacter baumannii by PCR Not Detected (Not Detect); Candida albicans by PCR Not Detected (Not Detect); Candida glabrata by PCR Not Detected (Not Detect); Candida krusei by PCR Not Detected (Not Detect); Candida parapsilosis by PCR Not Detected (Not Detect); Candida tropicalis by PCR Not Detected (Not Detect); Enterobacter cloacae Cmplx PCR Not Detected (Not Detect); Enterobacteriaceae by PCR Not Detected (Not Detect); Escherichia coli by PCR Not Detected (Not Detect); Klebsiella oxytoca by PCR Not Detected (Not Detect); Klebsiella pneumoniae by PCR Not Detected (Not Detect); Proteus by PCR Not Detected (Not Detect); Pseudomonas aeruginosa by PCR Not Detected (Not Detect); Serratia marcescens by PCR Not Detected (Not Detect); Staphylococcus aureus by PCR DETECTED (Not Detect); Staphylococcus by PCR DETECTED (Not Detect); Streptococcus agalactiae(B)PCR Not Detected (Not Detect); Streptococcus by PCR Not Detected (Not Detect); Streptococcus pneumoniae PCR Not Detected (Not Detect); Streptococcus pyogenes (A) PCR Not Detected (Not Detect)
[2018-04-10 19:46] LABS: Hepatitis C Virus Antibody Reactive (Nonreactive)
[2018-04-10] MEDS: Acetaminophen 325 MG TABLET PO PRN (19:46)
[2018-04-11] MEDS: Ketorolac 15 MG/ML VIAL IVP PRN ×3 (03:24→23:06)
[2018-04-11] MEDS: 0.9 % Sodium Chloride 1,000 ML IVC SCH ×3 (03:29→22:40)
[2018-04-11 06:03] LABS: Basophils # 0.1 K/mcL (0.0-0.2); Basophils % 0.4 %; Eosinophils # 0.1 K/mcL (0.0-0.6); Eosinophils % 0.4 %; Hematocrit 31.6 % (35.3-44.9); Immature Granulocytes % 2.1 % (0-4); Lymphocytes # 1.9 K/mcL (0.6-4.6); Lymphocytes % 15.3 %; Mean Corpuscular HGB Conc 33.2 g/dL (31.6-35.5); Mean Corpuscular Volume 84.3 fL (83.0-100.0); Mean Platelet Volume 11.9 fL (9.4-12.4); Monocytes # 1.2 K/mcL (0.0-1.3); Monocytes % 9.2 %; Platelet Count 159 K/mcL (140-400); Red Blood Count 3.75 M/mcL (3.82-4.97); Red Cell Distribution Width 14.3 % (11.5-14.5); Segmented Neutrophils % 72.6 %
[2018-04-11 06:06] LABS: Hemoglobin 10.5 g/dL (11.5-15.4); Neutrophils # 9.2 K/mcL (1.6-8.9)
[2018-04-11 06:16] LABS: BUN/Creatinine Ratio 21 (6-26); Blood Urea Nitrogen 13 mg/dL (6-20); Calcium 8.6 mg/dL (8.6-10.3); Carbon Dioxide 21 mEq/L (23-29); Chloride 106 mEq/L (98-107); Glucose 119 mg/dL (70-105); Magnesium 1.7 mg/dL (1.6-2.6); Osmolality,Calculated 281 (280-300); Phosphorous 2.2 mg/dL (2.7-4.5); Potassium 3.8 mEq/L (3.5-5.1); Sodium 135 mEq/L (136-145); eGFR For Non-African Americans > 60 (> 60)
[2018-04-11] MEDS: Levofloxacin 750 MG/150 ML 750 MG/150 ML BAG IVPB SCH (08:40)
[2018-04-11] MEDS: Acetaminophen 325 MG TABLET PO PRN (08:49)
[2018-04-11] MEDS ORDERED: cefTRIAXone 2,000 MG in Water for inj. (sterile) 20 ML 20 ML IVP SCH (09:00)
--- NOTE | 2018-04-11 09:48 | Internal Med Progress Note ---
Hospitalist Progress Note - Encounter Date of Encounter: 04/11/18 Time of Encounter: 09:45 - Subjective Interval History: Ms. Courtney is a 32 year old female with history of IV drug abuse presenting with complaints of right sided, chest pain, fevers, chills and shortness of breath of about 3 days duration. Patient admits to IV drug abuse, last use was reportedly about 6 months ago. She reports she was walking along [address] about 3 days ago when she she noticed she was getting progressively short of breath and experiencing chest pain with deep breaths. Symptoms have been getting progressively worse with fevers and chills. She denies any coughing, nausea, vomiting or diarrhea. In the ER, a CT chest was doen showing multifocal pneumonia and septic emboli. ID was consulted, ATB changed to IV vancomycin, zosyn and levaquin Patient stats she has been sober since 2008, has been on suboxone 8 mg daily she [facility] [place] [facility] to get Sub[facility]one She c/o b/l chest pain sharp, 8/10, worse with deep breath and cough - Exam Vitals: Temp Pulse Resp BP Pulse Ox 98.9 F 117 20 137/71 91 04/11/18 07:39 04/11/18 07:39 04/11/18 07:39 04/11/18 07:39 04/11/18 07:39 Exam: CONSTITUTIONAL: patient appears as an age appropriate female in no acute distress. EYES Clear sclerae, bilateral pupils are equal, reactive to light. EMOI. RESPIRATORY: No accessory muscle use, bilateral reduced BS to auscultation, no wheezing, no crackles/rales. CARDIOVASCULAR: Regular heart rate, normal S1 and S2, no murmurs GASTROINTESTINAL: bowel sounds present, soft, no tenderness. MUSCULOSKELETAL: Joints in normal range of motion, no clubbing, no edema, no cyanosis. Bilateral peripheral pulses 2+. NEUROLOGIC: CN II to XII are grossly intact, no focal neurological deficit. DVT Prophylaxis: heparin SC - Summary of Assessment and Plan Summary of Assessment and Plan: Ms. Courtney is a 32 year old female with history of IV drug abuse presenting with complaints of right sided, chest pain, fevers, chills and shortness of breath of about 3 days duration. Patient admits to IV drug abuse, last use was reportedly about 6 months ago. She reports she was walking along [address] about 3 days ago when she she noticed she was getting progressively short of breath and experiencing chest pain with deep breaths. Symptoms have been getting progressively worse with fevers and chills. She denies any coughing, nausea, vomiting or diarrhea. In the ER, a CT chest was doen showing multifocal pneumonia and septic emboli. Patient was admitted on 04/10 for multifocal pneumonia ID was consulted, ATB changed to IV vancomycin, zosyn and levaquin Patient stats she has been sober since 2008, has been on suboxone 8 mg daily she goes to [facility] [place] daily to get Suboxone She c/o b/l chest pain sharp, 8/10, worse with deep breath and cough 1. sepsis with MRSA bacteremia, from cavitary/multi-focal pneumonia, contineu IV vancomycin, zosyn and levaquin, appreciate ID consult, recheck blood culture 2. possible MRSA Pneumonia cavitary/multi-focal pneumonia, conitneu IV va ncomycin 3.possible MRSA endocarditis, TTE showed Small sized, mobile echodensity attached to the anterior leaflet of the tricuspid valve measuring 1.2x1.0cm associated with mild to moderate tricuspid regurgitation. will consult cardiology, ID is not here over the weekends. 4. septic embolism 5. Transaminitis, positive for hep C, possible chronic hepatitis C 6. Tobacco dependent, nicotine patch 7. Hyponatremai, resolved 8. Hx of IVD, was on suboxone as OP, 8 mg daily, she has been off for 2 weeks, will restart at 4 mg dose 9. UTI, covered by zosyn 10. Hypophosphotemia, oral replace - Time Spent with Patient Total time spent is greater than 50% in coordination of care (as documented) at patient's floor/unit and/or counseling patient: Greater than 35 minutes Plan of Care Discussed with: patient Internal Medicine: Result - Labs CBC & Chem 7: 04/11/18 05:45 04/11/18 05:45 Labs: Short CBC 04/11/18 Range/Units 05:45 WBC 12.6 H D (4.3-11.1) K/mcL Hgb 10.5 L D (11.5-15.4) g/dL Hct 31.6 L (35.3-44.9) % Plt Count 159 (140-400) K/mcL Neutrophils # 9.2 H (1.6-8.9) K/mcL BMP 04/11/18 05:45 Sodium 135 L D Potassium 3.8 Chloride 106 Carbon Dioxide 21 L BUN 13 Creatinine 0.62 Glucose 119 H Calcium 8.6 - Impressions Impressions Echocardiogram 04/10/18 08:58 Impressions: LVEF 60-65%. Normal left ventricular diastolic function. Normal right ventricular structure and function. Small sized, mobile echodensity attached to the anterior leaflet of the tricuspid valve measuring 1.2x1.0cm associated with mild to moderate tricuspid regurgitation. Borderline pulmonary hypertension, RVSP 36 mmHg. Findings communicated to ordering provider. Left Ventricular Wall Motion: Rest Echo Findings All wall segments showed normal motion. Findings: Study Quality * Technically adequate exam. ECG Findings * Sinus tachycardia. Left Ventricle * LVEF 60-65%. * Normal LV chamber size, wall thickness and function. * Normal left ventricular diastolic function. Right Ventricle * Normal right ventricular structure and function. Left Atrium * Normal left atrial size. Right Atrium * Normal right atrial size. Aortic Valve * No aortic regurgitation. * Aortic valve not well visualized. * No aortic stenosis. Mitral Valve * No mitral regurgitation. * Normal mitral valve structure. * No mitral stenosis. Tricuspid Valve * Tricuspid valve not well visualized. * Mild-moderate tricuspid regurgitation. * Small sized, mobile echodensity attached to the anterior leaflet of the tricuspid valve measuring 1.2x1.0cm. Pulmonic Valve * Pulmonic valve is not well visualized. * No pulmonic stenosis. * No pulmonic regurgitation. Pulmonary Artery * Pulmonary artery not well visualized. Aorta * Normally sized aortic root. Pericardium * There is no pericardial effusion present. IVC * The IVC is not well evaluated. Consult Discharge Plan - Plan Referrals: NONE,PCP [Primary Care Provider] -
[2018-04-11] MEDS: Piperacillin/Tazobactam 3.375 GM in 0.9 % Sodium Chloride Mini Bag 100 ML IVPB SCH ×3 (10:09→22:40)
[2018-04-11] MEDS ORDERED: *HR* Buprenorphine HCl 2 MG SUBLINGUAL TABLET SL SCH (10:15)
[2018-04-11] MEDS ORDERED: Potassium Phosphate 44 MEQ in 0.9 % Sodium Chloride 250 ML IVPB ONE (10:17)
[2018-04-11] MEDS: Nicotine 14 MG PATCH.TD24 TD SCH (10:59)
--- NOTE | 2018-04-11 11:27 | Cardiology Consult Note ---
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 Continue vancomycin, other abx and duration per ID. Indications for valve replacement would include: very large vegetations over 20mm in diameter (not present), recurrent septic pulmonary emboli (not currently present), highly resistant organisms (to be determined by ID), or persistent bactermia (only initial blood cultures so far, repeat cultures per primary t eam/ID). If indication for valve replacement arise, please consult CT surgery. If clinically indicated, can order TYE which would be completed on Friday. As it is a Right sided endocarditis, there is potential for right sided CHF symptoms but unlikely as tricuspid regurgitation is not severe. No current signs of Right sided CHF. Likely tachycardic 2/2 MRSA bactermia and septic emboli (she states she is having chest pain). Thank you for the consult. (2) Septic embolism Current Visit: Yes Status: Acute 2/2 infective endocarditis, TB much less likely at this point Discussion w patient/family: The assessment and plan as outlined above was discussed with the patient and/or family members who expressed understanding and agreement. All questions were answered. Thank you for involving us in the care of your patient. Please call with any questions. History of Present Illness Consult date: 04/11/18 Consult reason: endocarditis Chief complaint: chest pain History of present illness: Ms. Courtney is a 32 year old female with no prior cardiac history presents with chest pain and dyspnea with findings of pulmonary septic emboli and TTE reveals 1.2x1.0cm tricuspid vegetation with blood cultures growing MRSA. She is currently on vancomycin and zosyn. She has history of IVDA but does not endorse any recent use at this time. Past Med Surg Social Fam HX - Past Medical History Medical history: no medical history Additional medical history: Cellulitis Psychiatric history: no psych history - Past Surgical History Surgical History: cholecystectomy Additional surgical history: tubal ligation - Social History Smoking Status: Current every day smoker Smokeless Tobacco Status: No Alcohol use: none Drug use: marijuana, methamphetamine, IV Drug Use - Family History Maternal Grandmother Hx Family Cancer: Yes Medications and Allergies Unable To Obtain [Unable to Obtain] 04/10/18 [History] Allergy/AdvReac Type Severity Reaction Status Date / Time ondansetron AdvReac Headache Verified 11/01/17 19:17 [From Zofran (as hydrochloride)] tramadol [From Ultram] AdvReac Headache Verified 11/01/17 19:17 All Systems Review: The remainder of the systems were reviewed and are negative - Constitutional Constitutional: chills, fever(s) - EENT Eyes: no loss of vision, no pain Nose, mouth and throat: no bleeding gums, no epistaxis - Cardiovascular Cardiovascular: chest pain at rest, dyspnea at rest - Respiratory Respiratory: dyspnea, no wheezing - Gastrointestinal Gastrointestinal: no hematemesis, no hematochezia - Genitourinary Genitourinary: no dysuria, no hematuria - Musculoskeletal Musculoskeletal: no arthralgias, no myalgias - Integumentary Integumentary: no unusual bruising - Neurological Neurological: no memory loss, no syncope - Psychiatric Psychiatric: no hallucinations, no panic attacks - Hematological/Lymphatic Hematologic/Lymphatic: no easy bleeding, no easy bruising Physical Examination Vital Signs, Last 4 Hours Temp Pulse Resp BP Pulse Ox 04/11/18 07:39 98.9 F 117 20 137/71 91 General: Conversant HEENT: Atraumatic Neck: No JVD Cardiac: Reg Rate and Rhythm, No Murmur Lungs: Normal Breath Sounds Neuro: Alert and responsive, No focal deficits noted Abdomen: Soft Musculoskeletal: No Chest Wall Tenderness Extremities: No Edema Results 04/11/18 05:45 04/11/18 05:45 Lab Results 04/11/18 04/11/18 05:45 05:45 WBC 12.6 H D Hgb 10.5 L D Hct 31.6 L Plt Count 159 Sodium 135 L D Potassium 3.8 Chloride 106 Carbon Dioxide 21 L BUN 13 Creatinine 0.62 Glucose 119 H Calcium 8.6 Magnesium 1.7 - EKG Interpretation EKG results cardiology: personally reviewed Consult Discharge Plan - Plan Referrals: NONE,PCP [Primary Care Provider] -
[2018-04-11] MEDS: *HR* Heparin 5,000 UNIT/ML VIAL SQ SCH ×2 (15:16→22:41)
[2018-04-12] MEDS: Acetaminophen 325 MG TABLET PO PRN (04:57)
[2018-04-12] MEDS: *HR* Heparin 5,000 UNIT/ML VIAL SQ SCH ×3 (04:58→23:27)
[2018-04-12] MEDS: Ketorolac 15 MG/ML VIAL IVP PRN ×2 (04:58→20:10)
--- NOTE | 2018-04-12 05:26 | Electrocardiograph Report ---
[email or web address] Test Date: 2018-04-10 Pat Name: Selena Courtney Department: [id number] Room: 2NE25 Gender: F Lead Web Application Developer: : 1985 Requested By: Ney Lazo Order Number: [id number] Reading MD: Ryan Suero Measurements Intervals [place] Rate: 146 P: 77 HI: 73 QRS: 67 QRSD: 84 T: 11 QT: 266 QTc: 415 Interpretive Statements Sinus tachycardia Minimal ST depression, diffuse leads Artifact in lead(s) V3 V5 Electronically Signed On 04-12-2018 5:24:33 EST by Ryan Suero
[2018-04-12] MEDS: 0.9 % Sodium Chloride 1,000 ML IVC SCH ×3 (06:55→23:28)
[2018-04-12] MEDS: Piperacillin/Tazobactam 3.375 GM in 0.9 % Sodium Chloride Mini Bag 100 ML IVPB SCH ×3 (06:55→23:24)
[2018-04-12] MEDS: Nicotine 14 MG PATCH.TD24 TD SCH (08:06)
[2018-04-12] MEDS: Levofloxacin 750 MG/150 ML 750 MG/150 ML BAG IVPB SCH (08:16)
--- NOTE | 2018-04-12 08:36 | Internal Med Progress Note ---
Hospitalist Progress Note - Encounter Date of Encounter: 04/12/18 Time of Encounter: 08:34 - Subjective Interval History: Ms. Courtney is a 32 year old female with history of IV drug abuse presenting with complaints of right sided, chest pain, fevers, chills and shortness of breath of about 3 days duration. Patient admits to IV drug abuse, last use was reportedly about 6 months ago. She reports she was walking along [address] about 3 days ago when she she noticed she was getting progressively short of breath and experiencing chest pain with deep breaths. Symptoms have been getting progressively worse with fevers and chills. She denies any coughing, nausea, vomiting or diarrhea. In the ER, a CT chest was doen showing multifocal pneumonia and septic emboli. ID was consulted, continue IV vancomycin, zosyn and levaquin Patient stats she has been sober since 2008, has been on suboxone 8 mg daily she goes to [facility] [place] daily to get Suboxone, last dose was 2 weeks ago. I spoke to pharmacist, we can't restart her on Suboxone, since last was was 2 weeks ago, not ongoing. She c/o b/l chest pain sharp, 8/10, worse with deep breath and cough, will add percoet prn She spiked fever 101, with massive sweats, poor appetite, will consult nutrition - Exam Vitals: Temp Pulse Resp BP Pulse Ox 98.5 F 105 20 136/75 91 04/12/18 06:55 04/12/18 06:55 04/12/18 06:55 04/12/18 06:55 04/12/18 06:55 Exam: CONSTITUTIONAL: patient appears as an age appropriate female in no acute distress. EYES Clear sclerae, bilateral pupils are equal, reactive to light. EMOI. RESPIRATORY: No accessory muscle use, bilateral reduced BS to auscultation, no wheezing, no crackles/rales. CARDIOVASCULAR: Regular heart rate, normal S1 and S2, no murmurs GASTROINTESTINAL: bowel sounds present, soft, no tenderness. MUSCULOSKELETAL: Joints in normal range of motion, no clubbing, no edema, no cyanosis. Bilateral peripheral pulses 2+. NEUROLOGIC: CN II to XII are grossly intact, no focal neurological deficit. DVT Prophylaxis: heparin SC - Summary of Assessment and Plan Summary of Assessment and Plan: Ms. Courtney is a 32 year old female with history of IV drug abuse presenting with complaints of right sided, chest pain, fevers, chills and shortness of breath of about 3 days duration. Patient admits to IV drug abuse, last use was reportedly about 6 months ago. She reports she was walking along [address] about 3 days ago when she she noticed she was getting progressively short of breath and experiencing chest pain with deep breaths. Symptoms have been getting progressively worse with fevers and chills. She denies any coughing, nausea, vomiting or diarrhea. In the ER, a CT chest was doen showing multifocal pneumonia and septic emboli. Patient was admitted on 04/10 for multifocal pneumonia ID was consulted, ATB changed to IV vancomycin, zosyn and levaquin Patient stats she has been sober since 2008, has been on suboxone 8 mg daily she goes to [facility] [place] daily to get Suboxone, last dose was 2 weeks ago. I spoke to pharmacist, we can't restart her on Suboxone, since last was was 2 weeks ago, not ongoing. She c/o b/l chest pain sharp, 8/10, worse with deep breath and cough, will add percocet prn She spiked fever 101, with massive sweats, poor appetite, will consult nutrition 1. sepsis with MRSA bacteremia, from cavitary/multi-focal pneumonia, continue IV vancomycin, zosyn and levaquin, appreciate ID consult, recheck blood culture on 04/11, 2. 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 ID is not here over the weekends. appreciate cardiology input 4. septic embolism, and chest pain add percoert prn 5. Transaminitis, positive for hep C, possible chronic hepatitis C 6. Tobacco dependent, nicotine patch 7. Hyponatremai, resolved 8. Hx of IVD, was on suboxone as OP, 8 mg daily, she has been off for 2 weeks. I spoke to pharmacist, we can't restart her on Suboxone, since last was was 2 weeks ago, not ongoing. 9. UTI, covered by zosyn 10. Hypophosphotemia, oral replaced 11. fever and leukocytosis from MRSA bacteremia 12. DVT prophylasix on heaprin SC - Time Spent with Patient Total time spent is greater than 50% in coordination of care (as documented) at patient's floor/unit and/or counseling patient: 25 - 35 minutes Plan of Care Discussed with: patient Internal Medicine: Result - Labs CBC & Chem 7: 04/11/18 05:45 04/11/18 05:45 Consult Discharge Plan - Plan Referrals: NONE,PCP [Primary Care Provider] -
[2018-04-12] MEDS: *HR* OxyCODONE/APAP 5/325 TABLET PO PRN ×3 (10:27→23:18)
[2018-04-12 12:25] LABS: Basophils # 0.1 K/mcL (0.0-0.2); Basophils % 0.7 %; Eosinophils # 0.5 K/mcL (0.0-0.6); Hematocrit 32.8 % (35.3-44.9); Immature Granulocytes % 2.6 % (0-4); Lymphocytes # 3.9 K/mcL (0.6-4.6); Lymphocytes % 22.1 %; Mean Corpuscular HGB Conc 33.5 g/dL (31.6-35.5); Mean Corpuscular Hemoglobin 28.2 pg (28.0-33.3); Mean Corpuscular Volume 84.1 fL (83.0-100.0); Mean Platelet Volume 11.5 fL (9.4-12.4); Monocytes # 2.1 K/mcL (0.0-1.3); Monocytes % 11.9 %; Platelet Count 252 K/mcL (140-400); Red Cell Distribution Width 14.6 % (11.5-14.5); Segmented Neutrophils % 59.7 %
[2018-04-12 12:26] LABS: Neutrophils # 10.5 K/mcL (1.6-8.9)
[2018-04-12 12:35] LABS: Alanine Aminotransferase 125 Units/L (7-52); Albumin 2.6 g/dL (3.5-5.7); Albumin/Globulin Ratio 0.9 (1.1-2.2); Alkaline Phosphatase 137 Units/L (34-104); Aspartate Amino Transferase 36 Units/L (13-39); BUN/Creatinine Ratio 20 (6-26); Bilirubin,Direct 0.4 mg/dL (0.0-0.2); Bilirubin,Indirect 0.8 mg/dL (0.0-1.2); Bilirubin,Total 1.2 mg/dL (0.3-1.0); Blood Urea Nitrogen 12 mg/dL (6-20); Calcium 8.2 mg/dL (8.6-10.3); Carbon Dioxide 21 mEq/L (23-29); Chloride 109 mEq/L (98-107); Glucose 100 mg/dL (70-105); Magnesium 1.9 mg/dL (1.6-2.6); Osmolality,Calculated 282 (280-300); Potassium 4.6 mEq/L (3.5-5.1); Sodium 136 mEq/L (136-145); Total Protein 5.6 g/dL (6.4-8.9); eGFR For Non-African Americans > 60 (> 60)
[2018-04-12 12:39] LABS: Platelet Estimate Normal (Normal)
[2018-04-13 02:14] LABS: Acinetobacter baumannii by PCR Not Detected (Not Detect); Candida albicans by PCR Not Detected (Not Detect); Candida glabrata by PCR Not Detected (Not Detect); Candida krusei by PCR Not Detected (Not Detect); Candida parapsilosis by PCR Not Detected (Not Detect); Candida tropicalis by PCR Not Detected (Not Detect); Enterobacter cloacae Cmplx PCR Not Detected (Not Detect); Enterobacteriaceae by PCR Not Detected (Not Detect); Enterococcus by PCR Not Detected (Not Detect); Escherichia coli by PCR Not Detected (Not Detect); Klebsiella oxytoca by PCR Not Detected (Not Detect); Klebsiella pneumoniae by PCR Not Detected (Not Detect); Proteus by PCR Not Detected (Not Detect); Pseudomonas aeruginosa by PCR Not Detected (Not Detect); Serratia marcescens by PCR Not Detected (Not Detect); Staphylococcus aureus by PCR DETECTED (Not Detect); Staphylococcus by PCR DETECTED (Not Detect); Streptococcus agalactiae(B)PCR Not Detected (Not Detect); Streptococcus by PCR Not Detected (Not Detect); Streptococcus pneumoniae PCR Not Detected (Not Detect); Streptococcus pyogenes (A) PCR Not Detected (Not Detect); blaKPC Carbapenem-Resist Gene Not Detected (Not Detect); vanA/B Vancomycin-Resist Genes Not Detected (Not Detect)
--- NOTE | 2018-04-13 02:22 | Event Note ---
Date of Encounter: 04/13/18 Time of Encounter: 02:17 Alerted by patient's nurse that blood culture results showed positive for staph aureus with methicillin-resistant gene. Patient currently on vancomycin and Zosyn. Patient admitted due to sepsis criteria, multifocal pneumonia, and septic emboli. TTE showed MRSA tricuspid valve endocarditis. Pt. to continue to be monitored closely. Latest VS: 98.9F temp, HR 109, RR 16, BP 139/83, SPO2 91% on 2.5 L via nasal cannula.
[2018-04-13] MEDS: *HR* OxyCODONE/APAP 5/325 TABLET PO PRN ×3 (05:43→21:12)
[2018-04-13 05:45] LABS: Hematocrit 30.5 % (35.3-44.9); Hemoglobin 10.2 g/dL (11.5-15.4); Mean Corpuscular HGB Conc 33.4 g/dL (31.6-35.5); Mean Corpuscular Hemoglobin 28.2 pg (28.0-33.3); Mean Corpuscular Volume 84.3 fL (83.0-100.0); Mean Platelet Volume 10.8 fL (9.4-12.4); Platelet Count 295 K/mcL (140-400); Red Blood Count 3.62 M/mcL (3.82-4.97); Red Cell Distribution Width 14.7 % (11.5-14.5)
[2018-04-13] MEDS: Ketorolac 15 MG/ML VIAL IVP PRN ×3 (05:45→21:12)
[2018-04-13] MEDS: *HR* Heparin 5,000 UNIT/ML VIAL SQ SCH ×3 (05:55→20:55)
[2018-04-13 05:57] LABS: BUN/Creatinine Ratio 20 (6-26); Blood Urea Nitrogen 11 mg/dL (6-20); Calcium 8.2 mg/dL (8.6-10.3); Carbon Dioxide 19 mEq/L (23-29); Chloride 107 mEq/L (98-107); Glucose 98 mg/dL (70-105); Osmolality,Calculated 277 (280-300); Potassium 4.5 mEq/L (3.5-5.1); Sodium 134 mEq/L (136-145); eGFR For Non-African Americans > 60 (> 60)
[2018-04-13 06:09] LABS: Lymphocytes # 2.9 K/mcL (0.6-4.6); Monocytes # 2.1 K/mcL (0.0-1.3); Neutrophils # 9.7 K/mcL (1.6-8.9); Platelet Estimate Normal (Normal)
[2018-04-13] MEDS ORDERED: *HR* LORazepam 2 MG/ML VIAL IVP ONE (06:28)
[2018-04-13] MEDS ORDERED: *HR* OxyCODONE Immed Rel 5 MG TABLET PO ONE (06:30)
[2018-04-13] MEDS: Piperacillin/Tazobactam 3.375 GM in 0.9 % Sodium Chloride Mini Bag 100 ML IVPB SCH (09:17)
[2018-04-13] MEDS: Nicotine 14 MG PATCH.TD24 TD SCH (09:18)
[2018-04-13] MEDS: 0.9 % Sodium Chloride 1,000 ML IVC SCH (09:18)
--- NOTE | 2018-04-13 10:12 | Infectious Disease Progress No ---
Date of Encounter: 04/13/18 Time of Encounter: 09:35 - Assessment and Plan (1) Sepsis Current Visit: Yes Status: Acute The patient had 3 sepsis criteria on admission. Developed leukocytosis over the weekend. Likely secondary to multifocal pneumonia, bacteremia, and endocarditis. Afebrile since admission. Tachycardia has improved tachypnea has resolved. White blood cell count is normal. Blood cultures drawn 04/10/18 are +3 out of 3 sets for MRSA and strep mitis. Repeat blood cultures drawn 04/11/18 are +1 out of 2 sets for gram-positive cocci, MRSA per the PCR. Recommendations: Await final ID and sensitivities on the 04/11/18 and blood cultures. Repeat blood cultures 2 sets. Discontinue airborne isolation and placed the patient on droplet precautions. Cancel AFB smears 3. Consider pulmonary to evaluate. Send sputum for culture if the patient is able to provide an adequate specimen. Continue Vancomycin IV. Pharmacy to dose. Goal trough ~15. Discontinue Zosyn. Discontinue Levaquin. Duration of treatment depends on the clinical picture. Monitor renal function and for drug toxicity and dose-adjust antibiotics. Avoid insertion of central venous access until repeat blood cultures are negative 48 hours. Recommend director social welfare to evaluate to assist with discharge planning. The patient will likely need 6-8 weeks of IV antibiotics and will likely require ECF placement on discharge. Qualifiers: Sepsis type: sepsis due to unspecified organism Qualified Code(s): A41.9 - Sepsis, unspecified organism (2) Bacteremia Current Visit: Yes Status: Acute Causative organism: MRSA and strep mitis. Source: IV drug use vs. endocarditis vs. other. Blood cultures drawn 04/10/18 are +3 out of 3 sets for MRSA and strep mitis. Repeat blood cultures drawn 04/11/18 are +1 out of 2 sets for gram-positive cocci, MRSA per the PCR. No endocarditis stigmata noted on exam. The patient has two major and two minor Modified Bledsoe's criteria. Currently on Vanc, Zosyn, and Levaquin. (3) Endocarditis Current Visit: Yes Status: Acute Location: Tricuspid valve. Causative organism: MRSA and S. mitis. Likely secondary to IV drug use and bacteremia. TTE showed a 1.2 x 1.0cm mobile echodenisty on the tricuspid valve. Cardiology consulted. No surgical intervention recommended at this time. Currently on Vanc, Zosyn, and Levaquin. Qualifiers: Endocarditis type: infective Infective endocarditis organism: bacterial Chronicity: acute Qualified Code(s): I33.0 - Acute and subacute infective endocarditis (4) Multifocal pneumonia Current Visit: Yes Status: Acute CTA of the chest showed patchy areas of consolidation and groundglass opacities to the lungs bilaterally with lower lung zone predominance concerning for multifocal pneumonia. Causative organism: Unclear, but concern for MRSA. Respiratory infectious panel was negative. Strep pneumo and legionella urinary antigens were negative. Currently on vancomycin, Zosyn, and Levaquin. (5) Septic embolism Current Visit: Yes Status: Acute CT of the chest showed superimposed scattered peripheral nodular opacities, many of which demonstrate cavitation most compatible with septic emboli. Likely secondary to bacteremia and endocarditis. Currently on vancomycin, Zosyn, Levaquin. (6) Transaminitis Current Visit: Yes Status: Acute Likely secondary to sepsis. The patient is hep C positive. Improved. Abdominal exam benign. Recommended GI follow-up as an outpatient. (7) Hyponatremia Current Visit: Yes Status: Resolved (8) Tobacco dependence Current Visit: No Status: Chronic (9) IV drug abuse Current Visit: Yes Status: Acute States last IV drug use was 6 months ago, but she does report smoking methamphetamine 2 weeks ago. HIV is negative. Hepatitis C antibody is positive. (10) Hepatitis C Current Visit: Yes Status: Acute Recommend referral to GI as an outpatient. Qualifiers: Viral hepatitis chronicity: chronic Hepatic coma status: without hepatic coma Qualified Code(s): B18.2 - Chronic viral hepatitis C - Subjective Interval history: Patient seen and examined. No acute events noted overnight. Patient states overall she feels a little bit better today. States she had a fever yesterday, but denies any chills or shivers or fevers overnight. States pain in her chest persists, but is a little bit better. She reports shortness of breath with exertion. Denies cough. Denies nausea, vomiting, diarrhea, or constipation. Denies abdominal pain or urinary complaints. States her last bowel movement was 2 days ago. States her appetite is good. Denies any other pain except as pr eviously mentioned. States her hands and her feet do feel little bit swollen. She denies any oral thrush or any skin lesions. Infect Dis PN-Objective Data - Labs CBC & Chem 7: 04/13/18 05:26 04/13/18 05:26 Labs: Laboratory Results - last 24 hr 04/11/18 04/12/18 04/12/18 11:01 12:05 12:05 WBC 17.5 H RBC 3.90 Hgb 11.0 L Hct 32.8 L MCV 84.1 MCH 28.2 MCHC 33.5 RDW 14.6 H Plt Count 252 D MPV 11.5 Immature Gran % 2.6 Seg Neutrophils % 59.7 Lymphocytes % 22.1 Monocytes % 11.9 Eosinophils % 3.0 Basophils % 0.7 Neutrophils # 10.5 H Lymphocytes # 3.9 Monocytes # 2.1 H Eosinophils # 0.5 Basophils # 0.1 Platelet Estimate Normal Sodium 136 Potassium 4.6 Chloride 109 H Carbon Dioxide 21 L BUN 12 Creatinine 0.61 Est GFR ( Amer) > 60 Est GFR (Non-Af Amer) > 60 BUN/Creatinine Ratio 20 Glucose 100 Calculated Osmolality 282 Calcium 8.2 L Magnesium 1.9 Total Bilirubin 1.2 H Direct Bilirubin 0.4 H Indirect Bilirubin 0.8 AST 36 ALT 125 H Alkaline Phosphatase 137 H Troponin I Serum Total Protein 5.6 L Albumin 2.6 L Globulin 3.0 Albumin/Globulin Ratio 0.9 L A. baumannii (PCR) Not Detected Enedina albicans (PCR) Not Detected C. glabrata (PCR) Not Detected C. krusei (PCR) Not Detected C. parapsilosis (PCR) Not Detected C. tropicalis (PCR) Not Detected Enterobacteriac sp PCR Not Detected E. cloacae complex PCR Not Detected Enterococcus sp PCR Not Detected E. coli (PCR) Not Detected H. influenzae (PCR) Not Detected Klebsiella oxytoca PCR Not Detected Klebsiella pneumoniae Not Detected List. monocytogenes PCR Not Detected N. meningitidis (PCR) Not Detected Proteus species (PCR) Not Detected Serratia marcescens PCR Not Detected Staphylococcus sp PCR DETECTED A Staph aureus (PCR) DETECTED A mecA-Methicil Res Gene DETECTED A Streptococcus sp PCR Not Detected Group A Strep DNA Not Detected Group B Strep (PCR) Not Detected Strep pneumoniae (PCR) Not Detected P. aeruginosa (PCR) Not Detected Carina/B-Vanco Res Genes Not Detected KPC (blaKPC) Detect PCR Not Detected Specimen Rejected 04/13/18 04/13/18 04/13/18 05:26 05:26 06:42 WBC 14.7 H RBC 3.62 L Hgb 10.2 L Hct 30.5 L MCV 84.3 MCH 28.2 MCHC 33.4 RDW 14.7 H Plt Count 295 MPV 10.8 Immature Gran % Seg Neutrophils % 66.0 Lymphocytes % 20.0 Monocytes % 14.0 Eosinophils % Basophils % Neutrophils # 9.7 H Lymphocytes # 2.9 Monocytes # 2.1 H Eosinophils # Basophils # Platelet Estimate Normal Sodium 134 L Potassium 4.5 Chloride 107 Carbon Dioxide 19 L BUN 11 Creatinine 0.56 L Est GFR ( Amer) > 60 Est GFR (Non-Af Amer) > 60 BUN/Creatinine Ratio 20 Glucose 98 Calculated Osmolality 277 L Calcium 8.2 L Magnesium Total Bilirubin Direct Bilirubin Indirect Bilirubin AST ALT Alkaline Phosphatase Troponin I Cancelled Serum Total Protein Albumin Globulin Albumin/Globulin Ratio A. baumannii (PCR) Enedina albicans (PCR) C. glabrata (PCR) C. krusei (PCR) C. parapsilosis (PCR) C. tropicalis (PCR) Enterobacteriac sp PCR E. cloacae complex PCR Enterococcus sp PCR E. coli (PCR) H. influenzae (PCR) Klebsiella oxytoca PCR Klebsiella pneumoniae List. monocytogenes PCR N. meningitidis (PCR) Proteus species (PCR) Serratia marcescens PCR Staphylococcus sp PCR Staph aureus (PCR) mecA-Methicil Res Gene Streptococcus sp PCR Group A Strep DNA Group B Strep (PCR) Strep pneumoniae (PCR) P. aeruginosa (PCR) Carina/B-Vanco Res Genes KPC (blaKPC) Detect PCR Specimen Rejected Volume 04/13/18 06:59 WBC RBC Hgb Hct MCV MCH MCHC RDW Plt Count MPV Immature Gran % Seg Neutrophils % Lymphocytes % Monocytes % Eosinophils % Basophils % Neutrophils # Lymphocytes # Monocytes # Eosinophils # Basophils # Platelet Estimate Sodium Potassium Chloride Carbon Dioxide BUN Creatinine Est GFR ( Amer) Est GFR (Non-Af Amer) BUN/Creatinine Ratio Glucose Calculated Osmolality Calcium Magnesium Total Bilirubin Direct Bilirubin Indirect Bilirubin AST ALT Alkaline Phosphatase Troponin I < 0.03 Serum Total Protein Albumin Globulin Albumin/Globulin Ratio A. baumannii (PCR) Enedina albicans (PCR) C. glabrata (PCR) C. krusei (PCR) C. parapsilosis (PCR) C. tropicalis (PCR) Enterobacteriac sp PCR E. cloacae complex PCR Enterococcus sp PCR E. coli (PCR) H. influenzae (PCR) Klebsiella oxytoca PCR Klebsiella pneumoniae List. monocytogenes PCR N. meningitidis (PCR) Proteus species (PCR) Serratia marcescens PCR Staphylococcus sp PCR Staph aureus (PCR) mecA-Methicil Res Gene Streptococcus sp PCR Group A Strep DNA Group B Strep (PCR) Strep pneumoniae (PCR) P. aeruginosa (PCR) Carina/B-Vanco Res Genes KPC (blaKPC) Detect PCR Specimen Rejected Cultures: Cultures 04/10/18 08:44 Blood Culture - Final Peripheral Venipuncture Methicillin Resistant S.aureus Streptococcus mitis/S.oralis 04/10/18 06:47 Blood Culture - Final Peripheral Venipuncture Methicillin Resistant S.aureus Streptococcus mitis/S.oralis 04/11/18 11:01 Blood Culture - Preliminary Peripheral Venipuncture Gram Positive Cocci 04/10/18 07:46 Blood Culture - Preliminary Peripheral Venipuncture Gram Positive Cocci 04/11/18 11:01 Blood Culture - Preliminary Peripheral Venipuncture Culture is incubating and being continuously monitored for growth. Final report to follow. 04/11/18 04:40 Legionella Antigen - Final Urine,Clean Catch Streptococcus pneumoniae Antigen (M - Final Serology 04/11/18 04/10/18 04/10/18 Range/Units 11:01 14:37 14:37 Urine Color (Yellow) Urine Clarity (Clear) Urine pH (5.0-8.0) pH Units Ur Specific [place] (1.010-1.025) Urine Protein (Neg-Trace) mg/dL Urine Glucose (UA) (Normal) mg/dL Urine Ketones (Negative) mg/dL Urine Blood (Negative) Urine Nitrite (Negative) Urine Bilirubin (Negative) Urine Urobilinogen (Normal) mg/dL Ur Leukocyte Esterase (Negative) Urine Microscopic RBC (0-3) per hpf Urine Microscopic WBC (0-3) per hpf Ur Squamous Epith Cells (None-Few) per lpf Urine Bacteria (None-Few) per hpf Hyaline Casts (None-Few) per lpf Ur Culture Indicated? (NO) Urine Test (Negative) Nasal Screen MRSA (PCR) Positive A (Negative) A. baumannii (PCR) Not Detected (Not Detect) Chlamy pneumoniae PCR Not Detected (Not Detect) Adenovirus (PCR) Not Detected (Not Detect) B. pertussis DNA (PCR) Not Detected (Not Detect) B.parapertussis DNA PCR Not Detected (Not Detect) Enedina albicans (PCR) Not Detected (Not Detect) C. glabrata (PCR) Not Detected (Not Detect) C. krusei (PCR) Not Detected (Not Detect) C. parapsilosis (PCR) Not Detected (Not Detect) C. tropicalis (PCR) Not Detected (Not Detect) Coronavirus OC43 (PCR) Not Detected (Not Detect) Coronavirus HKU1 (PCR) Not Detected (Not Detect) Coronavirus 229E (PCR) Not Detected (Not Detect) Coronavirus NL63 (PCR) Not Detected (Not Detect) Enterobacteriac sp PCR Not Detected (Not Detect) E. cloacae complex PCR Not Detected (Not Detect) Enterococcus sp PCR Not Detected (Not Detect) E. coli (PCR) Not Detected (Not Detect) H. influenzae (PCR) Not Detected (Not Detect) Hepatitis A IgM Ab (Nonreactive) Hep Bs Antigen (Nonreactive) Hep B Core IgM Ab (Nonreactive) Hepatitis C Ab Screen (Nonreactive) HIV Ag/Ab Combo Qual (Nonreactive) Human Metapneumovir PCR Not Detected (Not Detect) Influenza A (H1) PCR Not Detected (Not Detect) Influ A (H1N1/09) PCR Not Detected (Not Detect) Influenza A (H3) PCR Not Detected (Not Detect) Influenza A Untype (PCR) Not Detected (Not Detect) Influenza Type B (PCR) Not Detected (Not Detect) Klebsiella oxytoca PCR Not Detected (Not Detect) Klebsiella pneumoniae Not Detected (Not Detect) List. monocytogenes PCR Not Detected (Not Detect) M.pneumoniae DNA (PCR) Not Detected (Not Detect) N. meningitidis (PCR) Not Detected (Not Detect) Parainfluenza 1 (PCR) Not Detected (Not Detect) Parainfluenza 2 (PCR) Not Detected (Not Detect) Parainfluenza 3 (PCR) Not Detected (Not Detect) Parainfluenza 4 (PCR) Not Detected (Not Detect) Proteus species (PCR) Not Detected (Not Detect) RSV (PCR) Not Detected (Not Detect) Entero/Rhino (PCR) Not Detected (Not Detect) Serratia marcescens PCR Not Detected (Not Detect) Staphylococcus sp PCR DETECTED A (Not Detect) Staph aureus (PCR) DETECTED A (Not Detect) mecA-Methicil Res Gene DETECTED A (Not Detect) Streptococcus sp PCR Not Detected (Not Detect) Group A Strep DNA Not Detected (Not Detect) Group B Strep (PCR) Not Detected (Not Detect) Strep pneumoniae (PCR) Not Detected (Not Detect) P. aeruginosa (PCR) Not Detected (Not Detect) Carina/B-Vanco Res Genes Not Detected (Not Detect) KPC (blaKPC) Detect PCR Not Detected (Not Detect) 04/10/18 04/10/18 04/10/18 Range/Units 08:44 07:13 07:13 Urine Color Dark Yellow (Yellow) Urine Clarity Cloudy A (Clear) Urine pH 6.0 (5.0-8.0) pH Units Ur Specific [place] 1.017 (1.010-1.025) Urine Protein 100 H (Neg-Trace) mg/dL Urine Glucose (UA) Normal (Normal) mg/dL Urine Ketones Negative (Negative) mg/dL Urine Blood Moderate H (Negative) Urine Nitrite Positive A (Negative) Urine Bilirubin Small H (Negative) Urine Urobilinogen 4.0 H (Normal) mg/dL Ur Leukocyte Esterase Small H (Negative) Urine Microscopic RBC 0-3 (0-3) per hpf Urine Microscopic WBC 5-15 H (0-3) per hpf Ur Squamous Epith Cells Many H (None-Few) per lpf Urine Bacteria Many H (None-Few) per hpf Hyaline Casts None Seen (None-Few) per lpf Ur Culture Indicated? NO. A (NO) Urine Test Negative (Negative) Nasal Screen MRSA (PCR) (Negative) A. baumannii (PCR) Not Detected (Not Detect) Chlamy pneumoniae PCR (Not Detect) Adenovirus (PCR) (Not Detect) B. pertussis DNA (PCR) (Not Detect) B.parapertussis DNA PCR (Not Detect) Enedina albicans (PCR) Not Detected (Not Detect) C. glabrata (PCR) Not Detected (Not Detect) C. krusei (PCR) Not Detected (Not Detect) C. parapsilosis (PCR) Not Detected (Not Detect) C. tropicalis (PCR) Not Detected (Not Detect) Coronavirus OC43 (PCR) (Not Detect) Coronavirus HKU1 (PCR) (Not Detect) Coronavirus 229E (PCR) (Not Detect) Coronavirus NL63 (PCR) (Not Detect) Enterobacteriac sp PCR Not Detected (Not Detect) E. cloacae complex PCR Not Detected (Not Detect) Enterococcus sp PCR Not Detected (Not Detect) E. coli (PCR) Not Detected (Not Detect) H. influenzae (PCR) Not Detected (Not Detect) Hepatitis A IgM Ab (Nonreactive) Hep Bs Antigen (Nonreactive) Hep B Core IgM Ab (Nonreactive) Hepatitis C Ab Screen (Nonreactive) HIV Ag/Ab Combo Qual (Nonreactive) Human Metapneumovir PCR (Not Detect) Influenza A (H1) PCR (Not Detect) Influ A (H1N1/09) PCR (Not Detect) Influenza A (H3) PCR (Not Detect) Influenza A Untype (PCR) (Not Detect) Influenza Type B (PCR) (Not Detect) Klebsiella oxytoca PCR Not Detected (Not Detect) Klebsiella pneumoniae Not Detected (Not Detect) List. monocytogenes PCR Not Detected (Not Detect) M.pneumoniae DNA (PCR) (Not Detect) N. meningitidis (PCR) Not Detected (Not Detect) Parainfluenza 1 (PCR) (Not Detect) Parainfluenza 2 (PCR) (Not Detect) Parainfluenza 3 (PCR) (Not Detect) Parainfluenza 4 (PCR) (Not Detect) Proteus species (PCR) Not Detected (Not Detect) RSV (PCR) (Not Detect) Entero/Rhino (PCR) (Not Detect) Serratia marcescens PCR Not Detected (Not Detect) Staphylococcus sp PCR DETECTED A (Not Detect) Staph aureus (PCR) DETECTED A (Not Detect) mecA-Methicil Res Gene DETECTED A (Not Detect) Streptococcus sp PCR Not Detected (Not Detect) Group A Strep DNA Not Detected (Not Detect) Group B Strep (PCR) Not Detected (Not Detect) Strep pneumoniae (PCR) Not Detected (Not Detect) P. aeruginosa (PCR) Not Detected (Not Detect) Carina/B-Vanco Res Genes N/A (Not Detect) KPC (blaKPC) Detect PCR N/A (Not Detect) 04/10/18 Range/Units 06:40 Urine Color (Yellow) Urine Clarity (Clear) Urine pH (5.0-8.0) pH Units Ur Specific [place] (1.010-1.025) Urine Protein (Neg-Trace) mg/dL Urine Glucose (UA) (Normal) mg/dL Urine Ketones (Negative) mg/dL Urine Blood (Negative) Urine Nitrite (Negative) Urine Bilirubin (Negative) Urine Urobilinogen (Normal) mg/dL Ur Leukocyte Esterase (Negative) Urine Microscopic RBC (0-3) per hpf Urine Microscopic WBC (0-3) per hpf Ur Squamous Epith Cells (None-Few) per lpf Urine Bacteria (None-Few) per hpf Hyaline Casts (None-Few) per lpf Ur Culture Indicated? (NO) Urine Test (Negative) Nasal Screen MRSA (PCR) (Negative) A. baumannii (PCR) (Not Detect) Chlamy pneumoniae PCR (Not Detect) Adenovirus (PCR) (Not Detect) B. pertussis DNA (PCR) (Not Detect) B.parapertussis DNA PCR (Not Detect) Enedina albicans (PCR) (Not Detect) C. glabrata (PCR) (Not Detect) C. krusei (PCR) (Not Detect) C. parapsilosis (PCR) (Not Detect) C. tropicalis (PCR) (Not Detect) Coronavirus OC43 (PCR) (Not Detect) Coronavirus HKU1 (PCR) (Not Detect) Coronavirus 229E (PCR) (Not Detect) Coronavirus NL63 (PCR) (Not Detect) Enterobacteriac sp PCR (Not Detect) E. cloacae complex PCR (Not Detect) Enterococcus sp PCR (Not Detect) E. coli (PCR) (Not Detect) H. influenzae (PCR) (Not Detect) Hepatitis A IgM Ab Nonreactive (Nonreactive) Hep Bs Antigen Nonreactive (Nonreactive) Hep B Core IgM Ab Nonreactive (Nonreactive) Hepatitis C Ab Screen Reactive H (Nonreactive) HIV Ag/Ab Combo Qual Nonreactive (Nonreactive) Human Metapneumovir PCR (Not Detect) Influenza A (H1) PCR (Not Detect) Influ A (H1N1/09) PCR (Not Detect) Influenza A (H3) PCR (Not Detect) Influenza A Untype (PCR) (Not Detect) Influenza Type B (PCR) (Not Detect) Klebsiella oxytoca PCR (Not Detect) Klebsiella pneumoniae (Not Detect) List. monocytogenes PCR (Not Detect) M.pneumoniae DNA (PCR) (Not Detect) N. meningitidis (PCR) (Not Detect) Parainfluenza 1 (PCR) (Not Detect) Parainfluenza 2 (PCR) (Not Detect) Parainfluenza 3 (PCR) (Not Detect) Parainfluenza 4 (PCR) (Not Detect) Proteus species (PCR) (Not Detect) RSV (PCR) (Not Detect) Entero/Rhino (PCR) (Not Detect) Serratia marcescens PCR (Not Detect) Staphylococcus sp PCR (Not Detect) Staph aureus (PCR) (Not Detect) mecA-Methicil Res Gene (Not Detect) Streptococcus sp PCR (Not Detect) Group A Strep DNA (Not Detect) Group B Strep (PCR) (Not Detect) Strep pneumoniae (PCR) (Not Detect) P. aeruginosa (PCR) (Not Detect) Carina/B-Vanco Res Genes (Not Detect) KPC (blaKPC) Detect PCR (Not Detect) Exam - Constitutional Vitals: Temp Pulse Resp BP Pulse Ox 99.0 F 110 20 134/78 92 04/13/18 07:01 04/13/18 07:01 04/13/18 05:45 04/13/18 07:01 04/13/18 05:45 General appearance: average body habitus, cooperative, no acute distress - Head Head exam: Present: atraumatic, normal inspection, normocephalic - Eye Eye exam: Present: EOMI, normal appearance, PERRL Pupils: Present: normal accommodation Additional comments: No subconjunctival hemorrhage noted. - ENT ENT exam: Present: mucous membranes moist - Neck Neck exam: Present: normal inspection - Respiratory Respiratory exam: Present: CTAB. Absent: rales, respiratory distress, rhonchi, wheezes - Cardiovascular Cardiovascular exam: Present: +S1, +S2, tachycardia. Absent: irregular rhythm - GI/Abdominal GI/Abdominal exam: Present: normal bowel sounds, soft. Absent: distended, tenderness - Extremities Exam Extremities exam: Present: normal inspection, pedal edema (1+ bilateral lower extremities). Absent: joint swelling, tenderness - Back Exam Back exam: Present: normal inspection. Absent: paraspinal tenderness, vertebral tenderness - Neurological Exam Neurological exam: Present: alert, oriented X3, no focal deficits - Psychiatric Psychiatric exam: Present: normal affect, normal mood - Skin Skin exam: Present: dry, intact, normal color, warm Additional comments: No endocarditis stigmata noted. Consult Discharge Plan - Plan Referrals: NONE,PCP [Primary Care Provider] - - Attending Attestation I have personally performed a face to face evaluation on this patient. I have reviewed and agree with the care plan. History and Exam by me shows: Assessment and plan: Sepsis Bacteremia with MRSA and Streptococcus mitis IV drug use Hepatitis C Endocarditis: TTE showed 1.21 cm mobile echodensity on the tricuspid valve Recommendations Await final ID and sensitivities on the 04/11/18 and blood cultures. Repeat blood cultures 2 sets. Discontinue airborne isolation and placed the patient on droplet precautions. Cancel AFB smears 3. Consider pulmonary to evaluate. Send sputum for culture if the patient is able to provide an adequate specimen. Continue Vancomycin IV. Pharmacy to dose. Goal trough ~15. Discontinue Zosyn. Discontinue Levaquin. Duration of treatment depends on the clinical picture. Monitor renal function and for drug toxicity and dose-adjust antibiotics. Avoid insertion of central venous access until repeat blood cultures are negative 48 hours. Recommend director social welfare to evaluate to assist with discharge planning. The patient will likely need 6-8 weeks of IV antibiotics and will likely require ECF placement on discharge.
--- NOTE | 2018-04-13 12:57 | Internal Med Progress Note ---
Hospitalist Progress Note - Encounter Date of Encounter: 04/13/18 Time of Encounter: 12:24 - Subjective Interval History: Pt states chest pain persists. Also still SOB and oxygen saturation drops mid to low 80's with minimal activity. She is currently on 4L NC of oxygen but on room air at baseline. She denies fever, chills, N/V or diarrhea. - Exam Vitals: Temp Pulse Resp BP Pulse Ox 98.3 F 100 20 142/74 97 04/13/18 12:05 04/13/18 12:05 04/13/18 05:45 04/13/18 12:05 04/13/18 12:05 Exam: CONSTITUTIONAL: patient appears as an age appropriate female in no acute distress. EYES Clear sclerae, bilateral pupils are equal, reactive to light. EMOI. RESPIRATORY: Bilateral reduced BS to auscultation, positive tachypnea and shallow breaths but breathing not rapid and no use of accessory muscle. No wheezing, no crackles/rales. CARDIOVASCULAR: Regular heart rate, normal S1 and S2, no murmurs GASTROINTESTINAL: bowel sounds present, soft, no tenderness. MUSCULOSKELETAL: Joints in normal range of motion, no clubbing, no edema, no cyanosis. Bilateral peripheral pulses 2+. NEUROLOGIC: CN II to XII are grossly intact, no focal neurological deficit. - Assessment and Plan (1) Sepsis Current Visit: Yes Status: Acute Assessment and Plan: Pt came in with fevers , tachycardia and a multifocal pneumonia in setting of IV drug abuse CTA chest 04/10/2018 showed septic emboli and pneumonia. 2D echo 04/10/2018 showed infective endocarditis, possibly MRSA endocarditis. Results of echo below. Blood cultures 04/10/18 posiitive for MRSA, strep mitis/S.oralis. Pt has been on IV antibiotics with vanc and ceftriaxone. Then switched to Zosyn and Levaquin. Repeat blood cultures drawn 04/11/18 are +1 out of 2 sets for gram-positive cocci, MRSA per the PCR. ID consulted and appreciate recs. On Vancomyicn and Zosyn. levaquin discontinued for now. Echo EV/EV echocardiogram Impressions: LVEF 60-65%. Normal left ventricular diastolic function. Normal right ventricular structure and function. Small sized, mobile echodensity attached to the anterior leaflet of the tricuspid valve measuring 1.2x1.0cm associated with mild to moderate tricuspid regurgitation. Borderline pulmonary hypertension, RVSP 36 mmHg. Findings communicated to ordering provider. (2) Endocarditis due to Staphylococcus Current Visit: Yes Status: Acute Assessment and Plan: Pt is on antibiotics. 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 Will continue vancomycin, other abx and duration per ID. ID on board. (3) Multifocal pneumonia Current Visit: Yes Status: Acute Assessment and Plan: Continue antibiotics with Vancomycin and Zosyn. Follow up on cultures. (4) Septic embolism Current Visit: Yes Status: Acute Assessment and Plan: See #1. Possibly 2/ to IV drug abuse. Continue antibiotics. HIV Ag/Ab non-reactive (5) IV drug abuse Current Visit: Yes Status: Acute Assessment and Plan: Pt admits to IV durg use and states " I've been clean since 2008." Counseled (6) Hyponatremia Current Visit: Yes Status: Resolved Assessment and Plan: IV fluids with normal saline. Will monitor BMP (7) Acute respiratory distress Current Visit: Yes Status: Acute Assessment and Plan: Multifocal PNA likely due to MRSA. Continue antibiotic and consulting pulmonology. (8) Hypoxia Current Visit: Yes Status: Acute Assessment and Plan: Pt on 4L NC and has dyspnea with minimal exertion. Will obtain ABG and consult pulmonology. (9) Bacteremia Current Visit: Yes Status: Acute (10) Hepatitis C Current Visit: Yes Status: Acute Assessment and Plan: Follow up out pt with PCP for possible GI referral. DVT Prophylaxis: Heparin - Summary of Assessment and Plan Summary of Assessment and Plan: History of present illness: Dr. Lin Ms. Courtney is a 32 year old female with history of IV drug abuse presenting with complaints of right sided, chest pain, fevers, chills and shortness of breath of about 3 days duration. Patient admits to IV drug abuse, last use was reportedly about 6 months ago. She reports she was walking along [address] about 3 days ago when she she noticed she was getting progressively short of breath and experiencing chest pain with deep breaths. Symptoms have been getting progressively worse with fevers and chills. She denies any coughing, nausea, vomiting or diarrhea. In the ER, a CT chest was doen showing multifocal pneumonia and septic emboli. She was started on vanc and ceftriaxone and is being admitted for further management. - Time Spent with Patient Total time spent is greater than 50% in coordination of care (as documented) at patient's floor/unit and/or counseling patient: less than 15 minutes Plan of Care Discussed with: patient Internal Medicine: Result - Labs CBC & Chem 7: 04/13/18 05:26 04/13/18 05:26 Labs: Short CBC 04/12/18 04/13/18 Range/Units 12:05 05:26 WBC 17.5 H 14.7 H (4.3-11.1) K/mcL Hgb 11.0 L 10.2 L (11.5-15.4) g/dL Hct 32.8 L 30.5 L (35.3-44.9) % Plt Count 252 D 295 (140-400) K/mcL Neutrophils # 10.5 H 9.7 H (1.6-8.9) K/mcL BMP 04/12/18 04/13/18 12:05 05:26 Sodium 136 134 L Potassium 4.6 4.5 Chloride 109 H 107 Carbon Dioxide 21 L 19 L BUN 12 11 Creatinine 0.61 0.56 L Glucose 100 98 Calcium 8.2 L 8.2 L Cardiac Enzymes 04/13/18 04/13/18 Range/Units 05:26 06:59 Troponin I Cancelled < 0.03 Liver Function 04/12/18 Range/Units 12:05 Total Bilirubin 1.2 H (0.3-1.0) mg/dL Direct Bilirubin 0.4 H (0.0-0.2) mg/dL AST 36 (13-39) Units/L ALT 125 H (7-52) Units/L Alkaline Phosphatase 137 H (34-104) Units/L Albumin 2.6 L (3.5-5.7) g/dL Consult Discharge Plan - Plan Referrals: NONE,PCP [Primary Care Provider] - (1) Sepsis Qualifiers: Sepsis type: sepsis due to unspecified organism Qualified Code(s): A41.9 - Sepsis, unspecified organism (10) Hepatitis C Qualifiers: Viral hepatitis chronicity: chronic Hepatic coma status: without hepatic coma Qualified Code(s): B18.2 - Chronic viral hepatitis C
[2018-04-13] MEDS ORDERED: Ipratropium/Albuterol Neb 3 ML IH PRN (13:16)
[2018-04-13] MEDS: Ipratropium/Albuterol Neb 3 ML IH SCH ×2 (15:11→22:37)
[2018-04-13 16:44] LABS: ABG Base Excess 1 mEq/L (-2 to 3); ABG HCO3 24 mEq/L (21-27); ABG Oxygen Saturation 96 % (95-98); ABG PCO2 32 mmHg (35-45); ABG PH 7.48 pH Units (7.32-7.45); ABG PO2 74 mmHg (85-104); ABG TCO2 25 mEq/L (20-26)
--- NOTE | 2018-04-13 17:31 | Pulmonology Consult Note ---
Date of Encounter: 04/13/18 Time of Encounter: 13:00 Assessment and Plan (1) Acute hypoxemic respiratory failure Current Visit: Yes Status: Acute This patient was noticed her SPO2 ranged between 86-89% on room air during examination and she has obvious reasons for that with her multifocal pneumonia and she has been treated with antibiotics. Patient has history of A1AT deficiency and history of smoking and with her chest pain she is not taking deep breath that will lead to atelectasis. I have explained to RN to monitor her SPO2 and keep it around 92% and advised patient she will need to use IS and to have her on bronchodilators that hopefully will improve her symptoms. I don't feel strong reason that she will need any invasive testing such as bronchoscopy, however will keep that in the plan if no improvement. She will need physical therapy and A1AT deficiency can be addressed as out patient and main treatment will be to quit smoking completely. NIV if no improvement on nasal cannula. Thanks for consult and will continue to follow up. (2) Multifocal pneumonia Current Visit: Yes Status: Acute As mentioned above. Patient under care of infectious disease team and on saúl ropriate antibiotics. History of Present Illness Consult date: 04/13/18 Requesting physician: Snehal Salmeron Reason for consult: hypoxemia Chief complaint: Dyspnea, chest pain History of present illness: This is a pleasant 32 year old female with history of IV drug abuse and she has history of A1AT deficiency who present to the hospital with right side chest pain and fever, chills and shortness of breath. She has productive cough, but denies hemoptysis. She has noticed more dyspnea and pulmonary consulted because of hypoxia. Patient is poor historian and she has been treated for multifocal pneumonia. She still have chest pain and not taking deep breaths. She has history of smoking tobacco. She denies history of TB and no sick contact and no birds in the house. Past Med Surg Social Fam HX - Past Medical History Medical history: no medical history Additional medical history: Cellulitis Psychiatric history: no psych history - Past Surgical History Surgical History: cholecystectomy Additional surgical history: tubal ligation - Social History Smoking Status: Current every day smoker Smokeless Tobacco Status: No Alcohol use: none Drug use: marijuana, methamphetamine, IV Drug Use - Family History Maternal Grandmother Hx Family Cancer: Yes Medications and Allergies Unable To Obtain [Unable to Obtain] 04/10/18 [History] 3 Allergy/AdvReac Type Severity Reaction Status Date / Time ondansetron AdvReac Headache Verified 11/01/17 19:17 [From Zofran (as hydrochloride)] tramadol [From Ultram] AdvReac Headache Verified 11/01/17 19:17 All Systems: The remainder of the systems were reviewed and are negative Physical Examination Vital Signs: Vital Signs, Last 4 Hours Temp Pulse Resp BP Pulse Ox 04/13/18 15:54 98.2 F 100 18 135/76 95 04/13/18 15:18 20 97 General appearance: lethargic, appears uncomfortable Eyes: nonicteric ENT: oropharynx dry Mallampati (class): 1 Neck: supple, no lymphadenopathy Effort: mildly labored Inspection: hyperextended Auscultation: bilateral: diminished breath sounds Percussion: bilateral: not dull Tactile fremitus: bilateral: normal Cardiovascular: regular rate and rhythm Gastrointestinal: normoactive bowel sounds, non-distended Extremities: no cyanosis normal mental status depressed Results - Laboratory Findings CBC and BMP: 04/13/18 05:26 04/13/18 05:26 ABG ABG pH 7.48 pH Units (7.32-7.45) H 04/13/18 16:39 ABG pCO2 32 mmHg (35-45) L 04/13/18 16:39 ABG pO2 74 mmHg (85-104) L 04/13/18 16:39 ABG O2 Saturation 96 % (95-98) 04/13/18 16:39 Abnormal lab findings: Abnormal lab results WBC 14.7 K/mcL (4.3-11.1) H 04/13/18 05:26 RBC 3.62 M/mcL (3.82-4.97) L 04/13/18 05:26 Hgb 10.2 g/dL (11.5-15.4) L 04/13/18 05:26 Hct 30.5 % (35.3-44.9) L 04/13/18 05:26 RDW 14.7 % (11.5-14.5) H 04/13/18 05:26 Neutrophils # 9.7 K/mcL (1.6-8.9) H 04/13/18 05:26 Monocytes # 2.1 K/mcL (0.0-1.3) H 04/13/18 05:26 Nucleated RBCs/100 WBC 0.3 /100 WBC (0) H 04/10/18 06:40 ABG pH 7.48 pH Units (7.32-7.45) H 04/13/18 16:39 ABG pCO2 32 mmHg (35-45) L 04/13/18 16:39 ABG pO2 74 mmHg (85-104) L 04/13/18 16:39 Sodium 134 mEq/L (136-145) L 04/13/18 05:26 Carbon Dioxide 19 mEq/L (23-29) L 04/13/18 05:26 Creatinine 0.56 mg/dL (0.60-1.20) L 04/13/18 05:26 Calculated Osmolality 277 (280-300) L 04/13/18 05:26 Calcium 8.2 mg/dL (8.6-10.3) L 04/13/18 05:26 Phosphorus 2.2 mg/dL (2.7-4.5) L 04/11/18 05:45 Total Bilirubin 1.2 mg/dL (0.3-1.0) H 04/12/18 12:05 Direct Bilirubin 0.4 mg/dL (0.0-0.2) H 04/12/18 12:05 ALT 125 Units/L (7-52) H 04/12/18 12:05 Alkaline Phosphatase 137 Units/L (34-104) H 04/12/18 12:05 Serum Total Protein 5.6 g/dL (6.4-8.9) L 04/12/18 12:05 Albumin 2.6 g/dL (3.5-5.7) L 04/12/18 12:05 Albumin/Globulin Ratio 0.9 (1.1-2.2) L 04/12/18 12:05 Lipase < 3 Units/L (11-82) L 04/10/18 06:40 Urine Clarity Cloudy (Clear) A 04/10/18 07:13 Urine Protein 100 mg/dL (Neg-Trace) H 04/10/18 07:13 Urine Blood Moderate (Negative) H 04/10/18 07:13 Urine Nitrite Positive (Negative) A 04/10/18 07:13 Urine Bilirubin Small (Negative) H 04/10/18 07:13 Urine Urobilinogen 4.0 mg/dL (Normal) H 04/10/18 07:13 Ur Leukocyte Esterase Small (Negative) H 04/10/18 07:13 Urine Microscopic WBC 5-15 per hpf (0-3) H 04/10/18 07:13 Ur Squamous Epith Cells Many per lpf (None-Few) H 04/10/18 07:13 Urine Bacteria Many per hpf (None-Few) H 04/10/18 07:13 Ur Culture Indicated? NO. (NO) A 04/10/18 07:13 Nasal Screen MRSA (PCR) Positive (Negative) A 04/10/18 14:37 Hepatitis C Ab Screen Reactive (Nonreactive) H 04/10/18 06:40 Staphylococcus sp PCR DETECTED (Not Detect) A 04/11/18 11:01 Staph aureus (PCR) DETECTED (Not Detect) A 04/11/18 11:01 mecA-Methicil Res Gene DETECTED (Not Detect) A 04/11/18 11:01 - Microbiology Findings Microbiology Findings: Microbiology, Last 48 Hours 04/13/18 12:52 Blood Culture - Preliminary Peripheral Venipuncture Culture is incubating and being continuously monitored for growth. Final report to follow. 04/10/18 08:44 Blood Culture - Final Peripheral Venipuncture Methicillin Resistant S.aureus Streptococcus mitis/S.oralis 04/10/18 06:47 Blood Culture - Final Peripheral Venipuncture Methicillin Resistant S.aureus Streptococcus mitis/S.oralis 04/11/18 11:01 Blood Culture - Preliminary Peripheral Venipuncture Gram Positive Cocci 04/10/18 07:46 Blood Culture - Preliminary Peripheral Venipuncture Gram Positive Cocci - Diagnostic Findings CT scan - chest: report reviewed, image reviewed - Clinical Findings Intake & Output: Intake & Output 04/13/18 04/13/18 04/13/18 07:59 15:59 23:59 Intake Total 1350 / 1350 940 / 940 950 / 950 Output Total 300 / 300 500 / 500 Balance 1050 / 1050 440 / 440 950 / 950 Weight 75.1 kg Consult Discharge Plan - Plan Referrals: NONE,PCP [Primary Care Provider] -
[2018-04-13] MEDS ORDERED: MORPHINE SUL Oral CONC 10 MG/0.5 ML ORAL.SYG SL ONE (23:41)
[2018-04-14] MEDS: Ipratropium/Albuterol Neb 3 ML IH SCH ×4 (04:17→22:27)
[2018-04-14] MEDS: *HR* Heparin 5,000 UNIT/ML VIAL SQ SCH ×3 (05:53→21:57)
[2018-04-14] MEDS: Nicotine 14 MG PATCH.TD24 TD SCH (08:52)
[2018-04-14] MEDS: Ketorolac 15 MG/ML VIAL IVP PRN ×2 (08:56→18:32)
[2018-04-14] MEDS: *HR* OxyCODONE/APAP 5/325 TABLET PO PRN ×3 (08:56→21:56)
[2018-04-14 09:22] LABS: Basophils # 0.1 K/mcL (0.0-0.2); Basophils % 0.6 %; Eosinophils # 0.3 K/mcL (0.0-0.6); Eosinophils % 2.1 %; Hematocrit 28.3 % (35.3-44.9); Hemoglobin 9.4 g/dL (11.5-15.4); Lymphocytes # 2.7 K/mcL (0.6-4.6); Lymphocytes % 19.8 %; Mean Corpuscular HGB Conc 33.2 g/dL (31.6-35.5); Mean Corpuscular Hemoglobin 28.1 pg (28.0-33.3); Mean Corpuscular Volume 84.7 fL (83.0-100.0); Monocytes % 7.2 %; Platelet Count 435 K/mcL (140-400); Red Blood Count 3.34 M/mcL (3.82-4.97); Red Cell Distribution Width 14.7 % (11.5-14.5); Segmented Neutrophils % 66.3 %
[2018-04-14 09:42] LABS: BUN/Creatinine Ratio 17 (6-26); Blood Urea Nitrogen 9 mg/dL (6-20); Carbon Dioxide 24 mEq/L (23-29); Chloride 101 mEq/L (98-107); Glucose 116 mg/dL (70-105); Osmolality,Calculated 278 (280-300); Potassium 4.2 mEq/L (3.5-5.1); Sodium 134 mEq/L (136-145); eGFR For Non-African Americans > 60 (> 60)
[2018-04-14 09:50] LABS: Platelet Estimate Normal (Normal)
--- NOTE | 2018-04-14 10:27 | Pulmonology Progress Note ---
<Linda Knox - Last Filed: 04/14/18 10:43> Date of Encounter: 04/14/18 Time of Encounter: 10:27 Assessment and Plan (1) Acute hypoxemic respiratory failure Current Visit: Yes Status: Acute This is a 32 y/o F with PMHx significant for tbuds-6-[id number] deficiency, hx of IV drug abuse (last use 6 months ago) who initially presented to hospital with chest pain and worsening dyspnea; chest pain associated with deep breathing; also associated with fever, tachycardia - Found to have infective endocarditis on Echo - Blood cultures positive for MRSA CTA (04/10/18): - Negative study for pulmonary embolism. - Patchy areas of consolidation and ground-glass opacity to the lungs bilaterally with lower lung zone predominance concerning for multifocal pneumonia. Superimposed scattered peripheral nodular opacities, many of which demonstrate cavitation most compatible with septic emboli given the clinical history. Continued follow-up is recommended. - Small right pleural effusion and trace left pleural effusion. - Nonspecific mediastinal and bilateral hilar lymphadenopathy but likely reactive. Attention can be paid on follow-up. CXR (04/13/18): - Bilateral airspace opacities in the lower lung zones with associated pleural effusions. Overall pattern may represent ARDS or pulmonary edema. Multifocal pneumonia would be considered less likely. - Currently on 3L O2 via NC, resting comfortably at bedside; Notes dyspnea with walking to the bathroom; Denies fevers/chills, cough, congestion PLAN: Likely secondary to multifocal pneumonia vs chest pain leading to shallowing breathing - Given shallow breathing, concern for atelectasis - Pain control as needed to aid with deep breathing - Encourage incentive spirometry, out of bed to chair - Cont bronchodilators - Cont antibiotics per ID recommendations; Follow blood cultures - Cont O2 supplementation; titrate to keep O2 sat > 88% - With increasing O2 requirement, may need to consider BIPAP - With worsening signs and symptoms, may need to consider bronchoscopy; however, given clinical picture, unnecessary at this time - Follow up outpatient pulmonology for management of Alpha-1 antitrypsin deficiency - Encourage smoking cessation --> Nicotine patch PRN (2) Multifocal pneumonia Current Visit: Yes Status: Acute As above - Abx per ID recommendations (3) Tobacco dependence Current Visit: No Status: Chronic PLAN: - Encourage smoking cessation - Nicotine Patch PRN Subjective Principal diagnosis: Acute Hypoxemic Respiratory Failure Interval history: Pt seen and examined resting comfortably at bedside, currently in no acute distress. O2 Sats appopriate on 3L O2 via NC. No acute events overnight. Pt notes she has noticed more swelling in her upper and lower extremities, but denies increasing difficulty breathing. States her breathing is the same as it has been over the past few days. She feels SOB with walking to the bathroom, but otherwise is comfortable at rest. Has been having chest tenderness with deeps breaths. Denies fevers/chills, congestion, cough, wheezing, abdominal pain, n/v/d. Incentive spirometer at bedside, but patient has yet to use it thus far. Pt remains afebrile with decreasing white count. Objective PUL Vital signs: Last Vital Signs Temp 99 F 04/14/18 08:21 Pulse 109 04/14/18 08:21 Resp 16 04/14/18 08:21 BP 147/81 04/14/18 08:21 Pulse Ox 95 04/14/18 08:21 General appearance: no acute distress, alert Eyes: nonicteric ENT: oropharynx moist Neck: supple Effort: normal Auscultation: bilateral: clear (No wheezes, rales, rhonchi, crackles; moderately shallow breathing) Cardiovascular: regular rate and rhythm Gastrointestinal: normoactive bowel sounds, soft, non-tender, non-distended Integumentary: normal Extremities: edema (2+ pitting edema b/l upper and lower extremities) Gait: normal posture normal mental status, non-focal exam, pupils equal and round, CN II-XII normal mood appropriate, affect normal Results - Laboratory Findings CBC and BMP: 04/14/18 09:07 04/14/18 09:07 ABG ABG pH 7.48 pH Units (7.32-7.45) H 04/13/18 16:39 ABG pCO2 32 mmHg (35-45) L 04/13/18 16:39 ABG pO2 74 mmHg (85-104) L 04/13/18 16:39 ABG O2 Saturation 96 % (95-98) 04/13/18 16:39 Abnormal lab findings: Abnormal lab results WBC 13.5 K/mcL (4.3-11.1) H 04/14/18 09:07 RBC 3.34 M/mcL (3.82-4.97) L 04/14/18 09:07 Hgb 9.4 g/dL (11.5-15.4) L 04/14/18 09:07 Hct 28.3 % (35.3-44.9) L 04/14/18 09:07 RDW 14.7 % (11.5-14.5) H 04/14/18 09:07 Plt Count 435 K/mcL (140-400) H 04/14/18 09:07 Neutrophils # 9.0 K/mcL (1.6-8.9) H 04/14/18 09:07 Nucleated RBCs/100 WBC 0.3 /100 WBC (0) H 04/10/18 06:40 ABG pH 7.48 pH Units (7.32-7.45) H 04/13/18 16:39 ABG pCO2 32 mmHg (35-45) L 04/13/18 16:39 ABG pO2 74 mmHg (85-104) L 04/13/18 16:39 Sodium 134 mEq/L (136-145) L 04/14/18 09:07 Creatinine 0.54 mg/dL (0.60-1.20) L 04/14/18 09:07 Glucose 116 mg/dL (70-105) H 04/14/18 09:07 Calculated Osmolality 278 (280-300) L 04/14/18 09:07 Calcium 8.0 mg/dL (8.6-10.3) L 04/14/18 09:07 Phosphorus 2.2 mg/dL (2.7-4.5) L 04/11/18 05:45 Total Bilirubin 1.2 mg/dL (0.3-1.0) H 04/12/18 12:05 Direct Bilirubin 0.4 mg/dL (0.0-0.2) H 04/12/18 12:05 ALT 125 Units/L (7-52) H 04/12/18 12:05 Alkaline Phosphatase 137 Units/L (34-104) H 04/12/18 12:05 Serum Total Protein 5.6 g/dL (6.4-8.9) L 04/12/18 12:05 Albumin 2.6 g/dL (3.5-5.7) L 04/12/18 12:05 Albumin/Globulin Ratio 0.9 (1.1-2.2) L 04/12/18 12:05 Lipase < 3 Units/L (11-82) L 04/10/18 06:40 Urine Clarity Cloudy (Clear) A 04/10/18 07:13 Urine Protein 100 mg/dL (Neg-Trace) H 04/10/18 07:13 Urine Blood Moderate (Negative) H 04/10/18 07:13 Urine Nitrite Positive (Negative) A 04/10/18 07:13 Urine Bilirubin Small (Negative) H 04/10/18 07:13 Urine Urobilinogen 4.0 mg/dL (Normal) H 04/10/18 07:13 Ur Leukocyte Esterase Small (Negative) H 04/10/18 07:13 Urine Microscopic WBC 5-15 per hpf (0-3) H 04/10/18 07:13 Ur Squamous Epith Cells Many per lpf (None-Few) H 04/10/18 07:13 Urine Bacteria Many per hpf (None-Few) H 04/10/18 07:13 Ur Culture Indicated? NO. (NO) A 04/10/18 07:13 Nasal Screen MRSA (PCR) Positive (Negative) A 04/10/18 14:37 Vancomycin Trough 46 mcg/mL (5-10) H 04/14/18 09:07 Hepatitis C Ab Screen Reactive (Nonreactive) H 04/10/18 06:40 Staphylococcus sp PCR DETECTED (Not Detect) A 04/11/18 11:01 Staph aureus (PCR) DETECTED (Not Detect) A 04/11/18 11:01 mecA-Methicil Res Gene DETECTED (Not Detect) A 04/11/18 11:01 - Microbiology Findings Microbiology Findings: Microbiology, Last 48 Hours 04/11/18 11:01 Blood Culture - Final Peripheral Venipuncture Methicillin Resistant S.aureus 04/13/18 16:22 Blood Culture - Preliminary Peripheral Venipuncture Culture is incubating and being continuously monitored for growth. Final report to follow. 04/13/18 12:52 Blood Culture - Preliminary Peripheral Venipuncture Culture is incubating and being continuously monitored for growth. Final report to follow. 04/10/18 08:44 Blood Culture - Final Peripheral Venipuncture Methicillin Resistant S.aureus Streptococcus mitis/S.oralis 04/10/18 06:47 Blood Culture - Final Peripheral Venipuncture Methicillin Resistant S.aureus Streptococcus mitis/S.oralis 04/10/18 07:46 Blood Culture - Preliminary Peripheral Venipuncture Gram Positive Cocci - Clinical Findings Intake & Output: Intake & Output 04/13/18 04/14/18 04/14/18 23:59 07:59 15:59 Intake Total 1600 / 1600 500 / 500 250 / 250 Output Total 1650 / 1650 1000 / 1000 Balance 1600 / 1600 -1150 / -1150 -750 / -750 Weight 74.7 kg Consult Discharge Plan - Plan Referrals: NONE,PCP [Primary Care Provider] - <Cleopatra Portillo - Last Filed: 04/14/18 17:13> Date of Encounter: 04/14/18 Assessment and Plan (1) Acute hypoxemic respiratory failure Current Visit: Yes Status: Acute (2) Multifocal pneumonia Current Visit: Yes Status: Acute Objective PUL Vital signs: Last Vital Signs Temp 98.2 F 04/14/18 16:56 Pulse 111 04/14/18 16:56 Resp 16 04/14/18 16:56 BP 143/86 04/14/18 16:56 Pulse Ox 95 04/14/18 16:56 Results - Laboratory Findings CBC and BMP: 04/14/18 09:07 04/14/18 09:07 ABG ABG pH 7.48 pH Units (7.32-7.45) H 04/13/18 16:39 ABG pCO2 32 mmHg (35-45) L 04/13/18 16:39 ABG pO2 74 mmHg (85-104) L 04/13/18 16:39 ABG O2 Saturation 96 % (95-98) 04/13/18 16:39 Abnormal lab findings: Abnormal lab results WBC 13.5 K/mcL (4.3-11.1) H 04/14/18 09:07 RBC 3.34 M/mcL (3.82-4.97) L 04/14/18 09:07 Hgb 9.4 g/dL (11.5-15.4) L 04/14/18 09:07 Hct 28.3 % (35.3-44.9) L 04/14/18 09:07 RDW 14.7 % (11.5-14.5) H 04/14/18 09:07 Plt Count 435 K/mcL (140-400) H 04/14/18 09:07 Neutrophils # 9.0 K/mcL (1.6-8.9) H 04/14/18 09:07 Nucleated RBCs/100 WBC 0.3 /100 WBC (0) H 04/10/18 06:40 ABG pH 7.48 pH Units (7.32-7.45) H 04/13/18 16:39 ABG pCO2 32 mmHg (35-45) L 04/13/18 16:39 ABG pO2 74 mmHg (85-104) L 04/13/18 16:39 Sodium 134 mEq/L (136-145) L 04/14/18 09:07 Creatinine 0.54 mg/dL (0.60-1.20) L 04/14/18 09:07 Glucose 116 mg/dL (70-105) H 04/14/18 09:07 Calculated Osmolality 278 (280-300) L 04/14/18 09:07 Calcium 8.0 mg/dL (8.6-10.3) L 04/14/18 09:07 Phosphorus 2.2 mg/dL (2.7-4.5) L 04/11/18 05:45 Total Bilirubin 1.2 mg/dL (0.3-1.0) H 04/12/18 12:05 Direct Bilirubin 0.4 mg/dL (0.0-0.2) H 04/12/18 12:05 ALT 125 Units/L (7-52) H 04/12/18 12:05 Alkaline Phosphatase 137 Units/L (34-104) H 04/12/18 12:05 Serum Total Protein 5.6 g/dL (6.4-8.9) L 04/12/18 12:05 Albumin 2.6 g/dL (3.5-5.7) L 04/12/18 12:05 Albumin/Globulin Ratio 0.9 (1.1-2.2) L 04/12/18 12:05 Lipase < 3 Units/L (11-82) L 04/10/18 06:40 Urine Clarity Cloudy (Clear) A 04/10/18 07:13 Urine Protein 100 mg/dL (Neg-Trace) H 04/10/18 07:13 Urine Blood Moderate (Negative) H 04/10/18 07:13 Urine Nitrite Positive (Negative) A 04/10/18 07:13 Urine Bilirubin Small (Negative) H 04/10/18 07:13 Urine Urobilinogen 4.0 mg/dL (Normal) H 04/10/18 07:13 Ur Leukocyte Esterase Small (Negative) H 04/10/18 07:13 Urine Microscopic WBC 5-15 per hpf (0-3) H 04/10/18 07:13 Ur Squamous Epith Cells Many per lpf (None-Few) H 04/10/18 07:13 Urine Bacteria Many per hpf (None-Few) H 04/10/18 07:13 Ur Culture Indicated? NO. (NO) A 04/10/18 07:13 Nasal Screen MRSA (PCR) Positive (Negative) A 04/10/18 14:37 Vancomycin Trough 25 mcg/mL (5-10) H 04/14/18 13:25 Hepatitis C Ab Screen Reactive (Nonreactive) H 04/10/18 06:40 Staphylococcus sp PCR DETECTED (Not Detect) A 04/11/18 11:01 Staph aureus (PCR) DETECTED (Not Detect) A 04/11/18 11:01 mecA-Methicil Res Gene DETECTED (Not Detect) A 04/11/18 11:01 - Microbiology Findings Microbiology Findings: Microbiology, Last 48 Hours 04/11/18 11:01 Blood Culture - Final Peripheral Venipuncture Methicillin Resistant S.aureus 04/13/18 16:22 Blood Culture - Preliminary Peripheral Venipuncture Culture is incubating and being continuously monitored for growth. Final report to follow. 04/13/18 12:52 Blood Culture - Preliminary Peripheral Venipuncture Culture is incubating and being continuously monitored for growth. Final report to follow. 04/10/18 08:44 Blood Culture - Final Peripheral Venipuncture Methicillin Resistant S.aureus Streptococcus mitis/S.oralis 04/10/18 06:47 Blood Culture - Final Peripheral Venipuncture Methicillin Resistant S.aureus Streptococcus mitis/S.oralis - Clinical Findings Intake & Output: Intake & Output 04/14/18 04/14/18 04/14/18 07:59 15:59 23:59 Intake Total 500 / 500 728 / 728 Output Total 1650 / 1650 1500 / 1500 Balance -1150 / -1150 -772 / -772 Weight 74.7 kg - Attending Attestation I examined this patient and my medical decision-making was reviewed with the Resident Physician. I agree with the documented findings, disposition and treatment plan as described except to the extent set forth below. Patient seen and examined. Labs, radiology, chart personally reviewed. Agree with resident's history and physical, assessment, plan with following comments: SUPERVISOR OF COMMUNICATIONS: Patient follows commands, Pulmonary: Acceptable oxygenation and ventilation. Patient started feeling better and her oxygen saturation during the examination was 97% on room air which is significantly improved from yesterday and clinically she looks better. Continue current treatment and she will need follow-up CT images in about 6-8 weeks as outpatient and then she can follow-up as outpatient in the clinic. Will follow-up when necessary and please call for any questions.
--- NOTE | 2018-04-14 10:27 | Infectious Disease Progress No ---
Date of Encounter: 04/14/18 Time of Encounter: 10:20 - Assessment and Plan (1) Sepsis Current Visit: Yes Status: Acute The patient had 3 sepsis criteria on admission. Developed leukocytosis over the weekend. Likely secondary to multifocal pneumonia, bacteremia, and endocarditis. Afebrile since admission. Tachycardia has improved tachypnea has resolved. White blood cell count is normal. Blood cultures drawn 04/10/18 are +3 out of 3 sets for MRSA and strep mitis. Repeat blood cultures drawn 04/11/18 are +1 out of 2 sets for MRSA. Repeat cultures drawn 04/13/18 are pending x 2 sets. Recommendations: Await repeat blood cultures. Continue droplet precautions. Send sputum for culture if the patient is able to provide an adequate specimen. Continue Vancomycin IV. Pharmacy to dose. Goal trough ~15. Duration of treatment depends on the clinical picture. Monitor renal function and for drug toxicity and dose-adjust antibiotics. Avoid insertion of central venous access until repeat blood cultures are negative 48 hours. Recommend social work manager to evaluate to assist with discharge planning. The patient will likely need 6-8 weeks of IV antibiotics and will likely require ECF placement on discharge. Qualifiers: Sepsis type: sepsis due to unspecified organism Qualified Code(s): A41.9 - Sepsis, unspecified organism (2) Bacteremia Current Visit: Yes Status: Acute Causative organism: MRSA and strep mitis. Source: IV drug use vs. endocarditis vs. other. Blood cultures drawn 04/10/18 are +3 out of 3 sets for MRSA and strep mitis. Repeat blood cultures drawn 04/11/18 are +1 out of 2 sets for MRSA. No endocarditis stigmata noted on exam. The patient has two major and two minor Modified Bledsoe's criteria. Currently on Vancomycin IV. (3) Endocarditis Current Visit: Yes Status: Acute Location: Tricuspid valve. Causative organism: MRSA and S. mitis. Likely secondary to IV drug use and bacteremia. TTE showed a 1.2 x 1.0cm mobile echodenisty on the tricuspid valve. Cardiology consulted. No surgical intervention recommended at this time. Currently on Vancomycin. Qualifiers: Endocarditis type: infective Infective endocarditis organism: bacterial Chronicity: acute Qualified Code(s): I33.0 - Acute and subacute infective endocarditis (4) Multifocal pneumonia Current Visit: Yes Status: Acute CTA of the chest showed patchy areas of consolidation and groundglass opacities to the lungs bilaterally with lower lung zone predominance concerning for multifocal pneumonia. Causative organism: Unclear, but concern for MRSA. Respiratory infectious panel was negative. Strep pneumo and legionella urinary antigens were negative. Pulmonology consulted. Currently on vancomycin. (5) Septic embolism Current Visit: Yes Status: Acute CT of the chest showed superimposed scattered peripheral nodular opacities, many of which demonstrate cavitation most compatible with septic emboli. Likely secondary to bacteremia and endocarditis. Currently on vancomycin. (6) Transaminitis Current Visit: Yes Status: Acute Likely secondary to sepsis. The patient is hep C positive. Improved. Abdominal exam benign. Recommended GI follow-up as an outpatient. (7) Hyponatremia Current Visit: Yes Status: Resolved (8) Tobacco dependence Current Visit: No Status: Chronic (9) IV drug abuse Current Visit: Yes Status: Acute States last IV drug use was 6 months ago, but she does report smoking methamphetamine 2 weeks ago. HIV is negative. Hepatitis C antibody is positive. (10) Hepatitis C Current Visit: Yes Status: Acute Recommend referral to GI as an outpatient. Qualifiers: Viral hepatitis chronicity: chronic Hepatic coma status: without hepatic coma Qualified Code(s): B18.2 - Chronic viral hepatitis C - Subjective Interval history: Patient seen and examined. No acute events noted overnight. Patient states overall she feels a little bit better today. Denies fevers, chills, or rigors. States pain in her chest persists, but is a little bit better. She reports shortness of breath with exertion. Denies cough. Denies nausea, vomiting, diarrhea, or constipation. Denies abdominal pain or urinary complaints. States her appetite is good. Denies any other pain except as previously mentioned. States her hands and her feet do feel little bit swollen. She denies any oral thrush or any skin lesions. Infect Dis PN-Objective Data - Labs CBC & Chem 7: 04/14/18 09:07 04/14/18 09:07 Labs: Laboratory Results - last 24 hr 04/13/18 04/13/18 04/14/18 11:57 16:39 09:07 WBC RBC Hgb Hct MCV MCH MCHC RDW Plt Count MPV Immature Gran % Seg Neutrophils % Lymphocytes % Monocytes % Eosinophils % Basophils % Neutrophils # Lymphocytes # Monocytes # Eosinophils # Basophils # Platelet Estimate Sample Site R Radial ABG pH 7.48 H ABG pCO2 32 L ABG pO2 74 L ABG HCO3 24 ABG Total CO2 25 ABG O2 Saturation 96 ABG Base Excess 1 Toby Test N/A O2 Delivery Device Cannula Inspired O2 4.0 Sodium Potassium Chloride Carbon Dioxide BUN Creatinine Est GFR ( Amer) Est GFR (Non-Af Amer) BUN/Creatinine Ratio Glucose Calculated Osmolality Calcium Vancomycin Trough 7 46 H 04/14/18 04/14/18 09:07 09:07 WBC 13.5 H RBC 3.34 L Hgb 9.4 L Hct 28.3 L MCV 84.7 MCH 28.1 MCHC 33.2 RDW 14.7 H Plt Count 435 H MPV 10.0 Immature Gran % 4.0 Seg Neutrophils % 66.3 Lymphocytes % 19.8 Monocytes % 7.2 Eosinophils % 2.1 Basophils % 0.6 Neutrophils # 9.0 H Lymphocytes # 2.7 Monocytes # 1.0 Eosinophils # 0.3 Basophils # 0.1 Platelet Estimate Normal Sample Site ABG pH ABG pCO2 ABG pO2 ABG HCO3 ABG Total CO2 ABG O2 Saturation ABG Base Excess Toyb Test O2 Delivery Device Inspired O2 Sodium 134 L Potassium 4.2 Chloride 101 Carbon Dioxide 24 BUN 9 Creatinine 0.54 L Est GFR ( Amer) > 60 Est GFR (Non-Af Amer) > 60 BUN/Creatinine Ratio 17 Glucose 116 H Calculated Osmolality 278 L Calcium 8.0 L Vancomycin Trough Cultures: Cultures 04/11/18 11:01 Blood Culture - Final Peripheral Venipuncture Methicillin Resistant S.aureus 04/13/18 16:22 Blood Culture - Preliminary Peripheral Venipuncture Culture is incubating and being continuously monitor ed for growth. Final report to follow. 04/13/18 12:52 Blood Culture - Preliminary Peripheral Venipuncture Culture is incubating and being continuously monitored for growth. Final report to follow. 04/10/18 08:44 Blood Culture - Final Peripheral Venipuncture Methicillin Resistant S.aureus Streptococcus mitis/S.oralis 04/10/18 06:47 Blood Culture - Final Peripheral Venipuncture Methicillin Resistant S.aureus Streptococcus mitis/S.oralis 04/10/18 07:46 Blood Culture - Preliminary Peripheral Venipuncture Gram Positive Cocci 04/11/18 11:01 Blood Culture - Preliminary Peripheral Venipuncture Culture is incubating and being continuously monitored for growth. Final report to follow. 04/11/18 04:40 Legionella Antigen - Final Urine,Clean Catch Streptococcus pneumoniae Antigen (M - Final Serology 04/11/18 04/10/18 04/10/18 Range/Units 11:01 14:37 14:37 Urine Color (Yellow) Urine Clarity (Clear) Urine pH (5.0-8.0) pH Units Ur Specific Sabine (1.010-1.025) Urine Protein (Neg-Trace) mg/dL Urine Glucose (UA) (Normal) mg/dL Urine Ketones (Negative) mg/dL Urine Blood (Negative) Urine Nitrite (Negative) Urine Bilirubin (Negative) Urine Urobilinogen (Normal) mg/dL Ur Leukocyte Esterase (Negative) Urine Microscopic RBC (0-3) per hpf Urine Microscopic WBC (0-3) per hpf Ur Squamous Epith Cells (None-Few) per lpf Urine Bacteria (None-Few) per hpf Hyaline Casts (None-Few) per lpf Ur Culture Indicated? (NO) Urine Test (Negative) Nasal Screen MRSA (PCR) Positive A (Negative) A. baumannii (PCR) Not Detected (Not Detect) Chlamy pneumoniae PCR Not Detected (Not Detect) Adenovirus (PCR) Not Detected (Not Detect) B. pertussis DNA (PCR) Not Detected (Not Detect) B.parapertussis DNA PCR Not Detected (Not Detect) Enedina albicans (PCR) Not Detected (Not Detect) C. glabrata (PCR) Not Detected (Not Detect) C. krusei (PCR) Not Detected (Not Detect) C. parapsilosis (PCR) Not Detected (Not Detect) C. tropicalis (PCR) Not Detected (Not Detect) Coronavirus OC43 (PCR) Not Detected (Not Detect) Coronavirus HKU1 (PCR) Not Detected (Not Detect) Coronavirus 229E (PCR) Not Detected (Not Detect) Coronavirus NL63 (PCR) Not Detected (Not Detect) Enterobacteriac sp PCR Not Detected (Not Detect) E. cloacae complex PCR Not Detected (Not Detect) Enterococcus sp PCR Not Detected (Not Detect) E. coli (PCR) Not Detected (Not Detect) H. influenzae (PCR) Not Detected (Not Detect) Hepatitis A IgM Ab (Nonreactive) Hep Bs Antigen (Nonreactive) Hep B Core IgM Ab (Nonreactive) Hepatitis C Ab Screen (Nonreactive) HIV Ag/Ab Combo Qual (Nonreactive) Human Metapneumovir PCR Not Detected (Not Detect) Influenza A (H1) PCR Not Detected (Not Detect) Influ A (H1N1/09) PCR Not Detected (Not Detect) Influenza A (H3) PCR Not Detected (Not Detect) Influenza A Untype (PCR) Not Detected (Not Detect) Influenza Type B (PCR) Not Detected (Not Detect) Klebsiella oxytoca PCR Not Detected (Not Detect) Klebsiella pneumoniae Not Detected (Not Detect) List. monocytogenes PCR Not Detected (Not Detect) M.pneumoniae DNA (PCR) Not Detected (Not Detect) N. meningitidis (PCR) Not Detected (Not Detect) Parainfluenza 1 (PCR) Not Detected (Not Detect) Parainfluenza 2 (PCR) Not Detected (Not Detect) Parainfluenza 3 (PCR) Not Detected (Not Detect) Parainfluenza 4 (PCR) Not Detected (Not Detect) Proteus species (PCR) Not Detected (Not Detect) RSV (PCR) Not Detected (Not Detect) Entero/Rhino (PCR) Not Detected (Not Detect) Serratia marcescens PCR Not Detected (Not Detect) Staphylococcus sp PCR DETECTED A (Not Detect) Staph aureus (PCR) DETECTED A (Not Detect) mecA-Methicil Res Gene DETECTED A (Not Detect) Streptococcus sp PCR Not Detected (Not Detect) Group A Strep DNA Not Detected (Not Detect) Group B Strep (PCR) Not Detected (Not Detect) Strep pneumoniae (PCR) Not Detected (Not Detect) P. aeruginosa (PCR) Not Detected (Not Detect) Carina/B-Vanco Res Genes Not Detected (Not Detect) KPC (blaKPC) Detect PCR Not Detected (Not Detect) 04/10/18 04/10/18 04/10/18 Range/Units 08:44 07:13 07:13 Urine Color Dark Yellow (Yellow) Urine Clarity Cloudy A (Clear) Urine pH 6.0 (5.0-8.0) pH Units Ur Specific Sabine 1.017 (1.010-1.025) Urine Protein 100 H (Neg-Trace) mg/dL Urine Glucose (UA) Normal (Normal) mg/dL Urine Ketones Negative (Negative) mg/dL Urine Blood Moderate H (Negative) Urine Nitrite Positive A (Negative) Urine Bilirubin Small H (Negative) Urine Urobilinogen 4.0 H (Normal) mg/dL Ur Leukocyte Esterase Small H (Negative) Urine Microscopic RBC 0-3 (0-3) per hpf Urine Microscopic WBC 5-15 H (0-3) per hpf Ur Squamous Epith Cells Many H (None-Few) per lpf Urine Bacteria Many H (None-Few) per hpf Hyaline Casts None Seen (None-Few) per lpf Ur Culture Indicated? NO. A (NO) Urine Test Negative (Negative) Nasal Screen MRSA (PCR) (Negative) A. baumannii (PCR) Not Detected (Not Detect) Chlamy pneumoniae PCR (Not Detect) Adenovirus (PCR) (Not Detect) B. pertussis DNA (PCR) (Not Detect) B.parapertussis DNA PCR (Not Detect) Enedina albicans (PCR) Not Detected (Not Detect) C. glabrata (PCR) Not Detected (Not Detect) C. krusei (PCR) Not Detected (Not Detect) C. parapsilosis (PCR) Not Detected (Not Detect) C. tropicalis (PCR) Not Detected (Not Detect) Coronavirus OC43 (PCR) (Not Detect) Coronavirus HKU1 (PCR) (Not Detect) Coronavirus 229E (PCR) (Not Detect) Coronavirus NL63 (PCR) (Not Detect) Enterobacteriac sp PCR Not Detected (Not Detect) E. cloacae complex PCR Not Detected (Not Detect) Enterococcus sp PCR Not Detected (Not Detect) E. coli (PCR) Not Detected (Not Detect) H. influenzae (PCR) Not Detected (Not Detect) Hepatitis A IgM Ab (Nonreactive) Hep Bs Antigen (Nonreactive) Hep B Core IgM Ab (Nonreactive) Hepatitis C Ab Screen (Nonreactive) HIV Ag/Ab Combo Qual (Nonreactive) Human Metapneumovir PCR (Not Detect) Influenza A (H1) PCR (Not Detect) Influ A (H1N1/09) PCR (Not Detect) Influenza A (H3) PCR (Not Detect) Influenza A Untype (PCR) (Not Detect) Influenza Type B (PCR) (Not Detect) Klebsiella oxytoca PCR Not Detected (Not Detect) Klebsiella pneumoniae Not Detected (Not Detect) List. monocytogenes PCR Not Detected (Not Detect) M.pneumoniae DNA (PCR) (Not Detect) N. meningitidis (PCR) Not Detected (Not Detect) Parainfluenza 1 (PCR) (Not Detect) Parainfluenza 2 (PCR) (Not Detect) Parainfluenza 3 (PCR) (Not Detect) Parainfluenza 4 (PCR) (Not Detect) Proteus species (PCR) Not Detected (Not Detect) RSV (PCR) (Not Detect) Entero/Rhino (PCR) (Not Detect) Serratia marcescens PCR Not Detected (Not Detect) Staphylococcus sp PCR DETECTED A (Not Detect) Staph aureus (PCR) DETECTED A (Not Detect) mecA-Methicil Res Gene DETECTED A (Not Detect) Streptococcus sp PCR Not Detected (Not Detect) Group A Strep DNA Not Detected (Not Detect) Group B Strep (PCR) Not Detected (Not Detect) Strep pneumoniae (PCR) Not Detected (Not Detect) P. aeruginosa (PCR) Not Detected (Not Detect) Carina/B-Vanco Res Genes N/A (Not Detect) KPC (blaKPC) Detect PCR N/A (Not Detect) 04/10/18 Range/Units 06:40 Urine Color (Yellow) Urine Clarity (Clear) Urine pH (5.0-8.0) pH Units Ur Specific Sab[place] (1.010-1.025) Urine Protein (Neg-Trace) mg/dL Urine Glucose (UA) (Normal) mg/dL Urine Ketones (Negative) mg/dL Urine Blood (Negative) Urine Nitrite (Negative) Urine Bilirubin (Negative) Urine Urobilinogen (Normal) mg/dL Ur Leukocyte Esterase (Negative) Urine Microscopic RBC (0-3) per hpf Urine Microscopic WBC (0-3) per hpf Ur Squamous Epith Cells (None-Few) per lpf Urine Bacteria (None-Few) per hpf Hyaline Casts (None-Few) per lpf Ur Culture Indicated? (NO) Urine Test (Negative) Nasal Screen MRSA (PCR) (Negative) A. baumannii (PCR) (Not Detect) Chlamy pneumoniae PCR (Not Detect) Adenovirus (PCR) (Not Detect) B. pertussis DNA (PCR) (Not Detect) B.parapertussis DNA PCR (Not Detect) Enedina albicans (PCR) (Not Detect) C. glabrata (PCR) (Not Detect) C. krusei (PCR) (Not Detect) C. parapsilosis (PCR) (Not Detect) C. tropicalis (PCR) (Not Detect) Coronavirus OC43 (PCR) (Not Detect) Coronavirus HKU1 (PCR) (Not Detect) Coronavirus 229E (PCR) (Not Detect) Coronavirus NL63 (PCR) (Not Detect) Enterobacteriac sp PCR (Not Detect) E. cloacae complex PCR (Not Detect) Enterococcus sp PCR (Not Detect) E. coli (PCR) (Not Detect) H. influenzae (PCR) (Not Detect) Hepatitis A IgM Ab Nonreactive (Nonreactive) Hep Bs Antigen Nonreactive (Nonreactive) Hep B Core IgM Ab Nonreactive (Nonreactive) Hepatitis C Ab Screen Reactive H (Nonreactive) HIV Ag/Ab Combo Qual Nonreactive (Nonreactive) Human Metapneumovir PCR (Not Detect) Influenza A (H1) PCR (Not Detect) Influ A (H1N1/09) PCR (Not Detect) Influenza A (H3) PCR (Not Detect) Influenza A Untype (PCR) (Not Detect) Influenza Type B (PCR) (Not Detect) Klebsiella oxytoca PCR (Not Detect) Klebsiella pneumoniae (Not Detect) List. monocytogenes PCR (Not Detect) M.pneumoniae DNA (PCR) (Not Detect) N. meningitidis (PCR) (Not Detect) Parainfluenza 1 (PCR) (Not Detect) Parainfluenza 2 (PCR) (Not Detect) Parainfluenza 3 (PCR) (Not Detect) Parainfluenza 4 (PCR) (Not Detect) Proteus species (PCR) (Not Detect) RSV (PCR) (Not Detect) Entero/Rhino (PCR) (Not Detect) Serratia marcescens PCR (Not Detect) Staphylococcus sp PCR (Not Detect) Staph aureus (PCR) (Not Detect) mecA-Methicil Res Gene (Not Detect) Streptococcus sp PCR (Not Detect) Group A Strep DNA (Not Detect) Group B Strep (PCR) (Not Detect) Strep pneumoniae (PCR) (Not Detect) P. aeruginosa (PCR) (Not Detect) Carina/B-Vanco Res Genes (Not Detect) KPC (blaKPC) Detect PCR (Not Detect) - Impressions Impressions Chest X-Ray 04/13/18 12:25 IMPRESSION: Bilateral airspace opacities in the lower lung zones with associated pleural effusions. Overall pattern may represent ARDS or pulmonary edema. Multifocal pneumonia would be considered less likely. D/ / Roc Naranjo MD / Roc Naranjo MD Interpreting Provider: Roc Naranjo MD Exam - Constitutional Vitals: Temp Pulse Resp BP Pulse Ox 99 F 109 16 147/81 95 04/14/18 08:21 04/14/18 08:21 04/14/18 08:21 04/14/18 08:21 04/14/18 08:21 General appearance: average body habitus, cooperative, no acute distress - Head Head exam: Present: atraumatic, normal inspection, normocephalic - Eye Eye exam: Present: EOMI, normal appearance, PERRL Pupils: Present: normal accommodation Additional comments: No subconjunctival hemorrhage noted. - ENT ENT exam: Present: mucous membranes moist - Neck Neck exam: Present: normal inspection - Respiratory Respiratory exam: Present: CTAB. Absent: rales, respiratory distress, rhonchi, wheezes - Cardiovascular Cardiovascular exam: Present: +S1, +S2, tachycardia. Absent: irregular rhythm - GI/Abdominal GI/Abdominal exam: Present: normal bowel sounds, soft. Absent: distended, tenderness - Extremities Exam Extremities exam: Present: normal inspection. Absent: joint swelling, pedal edema, tenderness - Neurological Exam Neurological exam: Present: alert, oriented X3, no focal deficits - Psychiatric Psychiatric exam: Present: normal affect, normal mood - Skin Skin exam: Present: dry, intact, normal color, warm Additional comments: No endocarditis stigmata noted. Consult Discharge Plan - Plan Referrals: NONE,PCP [Primary Care Provider] - - Attending Attestation I have personally performed a face to face evaluation on this patient. I have reviewed and agree with the care plan. History and Exam by me shows: Assessment and plan: Sepsis Bacteremia with MRSA and Streptococcus mitis IV drug use Hepatitis C Endocarditis: TTE showed 1.21 cm mobile echodensity on the tricuspid valve Recommendations Continue vancomycin for now. Consider cardiothoracic evaluation Appreciate pulmonary input Duration of treatment at least 6 weeks
--- NOTE | 2018-04-14 12:21 | Internal Med Progress Note ---
Hospitalist Progress Note - Encounter Date of Encounter: 04/14/18 Time of Encounter: 12:21 - Subjective Interval History: Pt states chest pain persists. Also still SOB and oxygen saturation drops mid to low 80's with minimal activity. She is currently on 4L NC of oxygen but on room air at baseline. She denies fever, chills, N/V or diarrhea. - Exam Vitals: Temp Pulse Resp BP Pulse Ox 99 F 109 18 147/81 93 04/14/18 08:21 04/14/18 08:21 04/14/18 10:44 04/14/18 08:21 04/14/18 10:44 Exam: CONSTITUTIONAL: patient appears as an age appropriate female in no acute distress. EYES Clear sclerae, bilateral pupils are equal, reactive to light. EMOI. RESPIRATORY: Bilateral reduced BS to auscultation but tachypnea improving. No noted shallow breaths and breathing not rapid. No use of accessory muscle. No wheezing, no crackles/rales. CARDIOVASCULAR: Regular heart rate, normal S1 and S2, no murmurs GASTROINTESTINAL: bowel sounds present, soft, no tenderness. MUSCULOSKELETAL: Joints in normal range of motion, no clubbing, no edema, no cyanosis. Bilateral peripheral pulses 2+. NEUROLOGIC: CN II to XII are grossly intact, no focal neurological deficit. - Assessment and Plan (1) Sepsis Current Visit: Yes Status: Acute Assessment and Plan: Pt came in with fevers , tachycardia and a multifocal pneumonia in setting of IV drug abuse. CTA chest 04/10/2018 showed septic emboli and pneumonia. 2D echo 04/10/2018 showed infective endocarditis, possibly MRSA endocarditis. Results of echo below. Blood cultures 04/10/18 posiitive for MRSA, strep mitis/S.oralis. Pt has been on IV antibiotics with vanc and ceftriaxone. Then switched to Zosyn and Levaquin. Repeat blood cultures drawn 04/11/18 are +1 out of 2 sets for gram-positive cocci, MRSA per the PCR. ID consulted and appreciate recs. On Vancomyicn. Zosyn and levaquin discontinued. Awaiting placement at SNF for inpt antibiotic therapy Echo EV/EV echocardiogram Impressions: LVEF 60-65%. Normal left ventricular diastolic function. Normal right ventricular structure and function. Small sized, mobile echodensity attached to the anterior leaflet of the tricuspid valve measuring 1.2x1.0cm associated with mild to moderate tricuspid regurgitation. Borderline pulmonary hypertension, RVSP 36 mmHg. Findings communicated to ordering provider. (2) Endocarditis due to Staphylococcus Current Visit: Yes Status: Acute Assessment and Plan: Pt is on antibiotics. 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 Will continue vancomycin and duration per ID. ID on board. (3) Multifocal pneumonia Current Visit: Yes Status: Acute Assessment and Plan: Continue antibiotics with Vancomycin. Blood cultures incubating. (4) Septic embolism Current Visit: Yes Status: Acute Assessment and Plan: Secondary to IV drug abuse. Continue antibiotics. HIV Ag/Ab non-reactive (5) IV drug abuse Current Visit: Yes Status: Acute Assessment and Plan: Pt admits to IV durg use and states " I've been clean since 2008." Counseled (6) Hyponatremia Current Visit: Yes Status: Resolved Assessment and Plan: IV fluids with normal saline. Will monitor BMP (7) Acute respiratory distress Current Visit: Yes Status: Acute Assessment and Plan: Multifocal PNA likely due to MRSA. Continue antibiotic. Evaluated by pulmonology and pt started on bronchodilators. incentive spirometry ordered (8) Hypoxia Current Visit: Yes Status: Acute Assessment and Plan: Pt on 4L NC and has dyspnea with minimal exertion. ABG showing pH 7.48, pCO2 32, pO2 74, Sat 96% on 4L NC. Pulmonology following. (9) Bacteremia Current Visit: Yes Status: Acute Assessment and Plan: MRSA. On Vancomycin (10) Hepatitis C Current Visit: Yes Status: Acute Assessment and Plan: Follow up out pt with PCP for possible GI referral. DVT Prophylaxis: Heparin - Summary of Assessment and Plan Summary of Assessment and Plan: History of present illness: Dr. Lin Ms. Courtney is a 32 year old female with history of IV drug abuse presenting wit h complaints of right sided, chest pain, fevers, chills and shortness of breath of about 3 days duration. Patient admits to IV drug abuse, last use was reportedly about 6 months ago. She reports she was walking along [address] about 3 days ago when she she noticed she was getting progressively short of breath and experiencing chest pain with deep breaths. Symptoms have been getting progressively worse with fevers and chills. She denies any coughing, nausea, vomiting or diarrhea. In the ER, a CT chest was doen showing multifocal pneumonia and septic emboli. She was started on vanc and ceftriaxone and is being admitted for further management. - Time Spent with Patient Total time spent is greater than 50% in coordination of care (as documented) at patient's floor/unit and/or counseling patient: less than 15 minutes Plan of Care Discussed with: patient Internal Medicine: Result - Labs CBC & Chem 7: 04/14/18 09:07 04/14/18 09:07 Labs: Short CBC 04/14/18 Range/Units 09:07 WBC 13.5 H (4.3-11.1) K/mcL Hgb 9.4 L (11.5-15.4) g/dL Hct 28.3 L (35.3-44.9) % Plt Count 435 H (140-400) K/mcL Neutrophils # 9.0 H (1.6-8.9) K/mcL BMP 04/14/18 09:07 Sodium 134 L Potassium 4.2 Chloride 101 Carbon Dioxide 24 BUN 9 Creatinine 0.54 L Glucose 116 H Calcium 8.0 L - ABG Interpretation ABG results: ABG ABG pH 7.48 pH Units (7.32-7.45) H 04/13/18 16:39 ABG pCO2 32 mmHg (35-45) L 04/13/18 16:39 ABG pO2 74 mmHg (85-104) L 04/13/18 16:39 ABG O2 Saturation 96 % (95-98) 04/13/18 16:39 - Impressions Impressions Chest X-Ray 04/13/18 12:25 IMPRESSION: Bilateral airspace opacities in the lower lung zones with associated pleural effusions. Overall pattern may represent ARDS or pulmonary edema. Multifocal pneumonia would be considered less likely. D/ / Roc Naranjo MD / Roc Naranjo MD Interpreting Provider: Roc Naranjo MD Consult Discharge Plan - Plan Referrals: NONE,PCP [Primary Care Provider] - (1) Sepsis Qualifiers: Sepsis type: sepsis due to unspecified organism Qualified Code(s): A41.9 - Sepsis, unspecified organism (10) Hepatitis C Qualifiers: Viral hepatitis chronicity: chronic Hepatic coma status: without hepatic coma Qualified Code(s): B18.2 - Chronic viral hepatitis C
[2018-04-15] MEDS: Ketorolac 15 MG/ML VIAL IVP PRN ×3 (00:23→19:00)
[2018-04-15] MEDS: Ipratropium/Albuterol Neb 3 ML IH SCH ×4 (04:18→21:51)
[2018-04-15] MEDS: *HR* OxyCODONE/APAP 5/325 TABLET PO PRN ×3 (05:45→19:01)
[2018-04-15] MEDS: *HR* Heparin 5,000 UNIT/ML VIAL SQ SCH ×3 (05:46→22:49)
[2018-04-15] MEDS: Nicotine 14 MG PATCH.TD24 TD SCH (09:03)
--- NOTE | 2018-04-15 09:38 | Internal Med Progress Note ---
Hospitalist Progress Note - Encounter Date of Encounter: 04/15/18 Time of Encounter: 17:47 - Subjective Interval History: Pt states chest pain persists. Also still SOB. She is currently on 4L NC of oxygen but on room air at baseline. She denies fever, chills, N/V or diarrhea. - Exam Vitals: Temp Pulse Resp BP Pulse Ox 98.9 F 97 16 130/85 97 04/15/18 07:48 04/15/18 07:48 04/15/18 05:09 04/15/18 07:48 04/15/18 07:48 Exam: CONSTITUTIONAL: patient appears as an age appropriate female in no acute distress. EYES Clear sclerae, bilateral pupils are equal, reactive to light. EMOI. RESPIRATORY: Bilateral reduced BS to auscultation but tachypnea improving. No noted shallow breaths and breathing not rapid. No use of accessory muscle. No wheezing, no crackles/rales. CARDIOVASCULAR: Regular heart rate, normal S1 and S2, no murmurs GASTROINTESTINAL: bowel sounds present, soft, no tenderness. MUSCULOSKELETAL: Joints in normal range of motion, no clubbing, no edema, no cyanosis. Bilateral peripheral pulses 2+. NEUROLOGIC: CN II to XII are grossly intact, no focal neurological deficit. - Assessment and Plan (1) Sepsis Current Visit: Yes Status: Acute Assessment and Plan: Pt came in with fevers , tachycardia and a multifocal pneumonia in setting of IV drug abuse. CTA chest 04/10/2018 showed septic emboli and pneumonia. 2D echo 04/10/2018 showed infective endocarditis, possibly MRSA endocarditis. Results of echo below. Blood cultures 04/10/18 positive for MRSA, strep mitis/S.oralis. Pt has been on IV antibiotics with vanc and ceftriaxone. Then switched to Zosyn and Levaquin. Repeat blood cultures drawn 04/11/18 are +1 out of 2 sets for gram-positive cocci, MRSA per the PCR. ID consulted and appreciate recs. On Vancomyicn. Zosyn and levaquin discontinued. Awaiting placement at SNF for in patient antibiotic therapy Echo EV/EV echocardiogram Impressions: LVEF 60-65%. Normal left ventricular diastolic function. Normal right ventricular structure and function. Small sized, mobile echodensity attached to the anterior leaflet of the tricuspid valve measuring 1.2x1.0cm associated with mild to moderate tricuspid regurgitation. Borderline pulmonary hypertension, RVSP 36 mmHg. Findings communicated to ordering provider. (2) Endocarditis due to Staphylococcus Current Visit: Yes Status: Acute Assessment and Plan: Pt is on antibiotics. 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 Will continue vancomycin and duration per ID. ID on board. (3) Multifocal pneumonia Current Visit: Yes Status: Acute Assessment and Plan: Continue antibiotics with Vancomycin. Blood cultures incubating. (4) Septic embolism Current Visit: Yes Status: Acute Assessment and Plan: Secondary to IV drug abuse. Continue antibiotics. HIV Ag/Ab non-reactive (5) IV drug abuse Current Visit: Yes Status: Acute Assessment and Plan: Pt admits to IV durg use and states " I've been clean since 2008." Counseled (6) Hyponatremia Current Visit: Yes Status: Resolved Assessment and Plan: IV fluids with normal saline. Will monitor BMP (7) Acute respiratory distress Current Visit: Yes Status: Acute Assessment and Plan: Multifocal PNA likely due to MRSA. Continue antibiotic. Evaluated by pulmonology and pt started on bronchodilators. incentive spirometry ordered (8) Hypoxia Current Visit: Yes Status: Acute Assessment and Plan: Pt on 4L NC and has dyspnea with minimal exertion. ABG showing pH 7.48, pCO2 32, pO2 74, Sat 96% on 4L NC. Pulmonology following. Code(s): R09.02 - Hypoxemia (9) Bacteremia Current Visit: Yes Status: Acute Assessment and Plan: MRSA. On Vancomycin (10) Hepatitis C Current Visit: Yes Status: Acute Assessment and Plan: Follow up out pt with PCP for possible GI referral. Concern for fresh track levine per nurse. Pt will need to be durg free for 6 months or greater in other to be able to participate in Hep C management. DVT Prophylaxis: Heparin - Summary of Assessment and Plan Summary of Assessment and Plan: History of present illness: Dr. Lin Ms. Courtney is a 32 year old female with history of IV drug abuse presenting with complaints of right sided, chest pain, fevers, chills and shortness of breath of about 3 days duration. Patient admits to IV drug abuse, last use was reportedly about 6 months ago. She reports she was walking along [address] about 3 days ago when she she noticed she was getting progressively short of breath and experiencing chest pain with deep breaths. Symptoms have been getting progressively worse with fevers and chills. She denies any coughing, nausea, vomiting or diarrhea. In the ER, a CT chest was doen showing multifocal pneumonia and septic emboli. She was started on vanc and ceftriaxone and is being admitted for further management. - Time Spent with Patient Total time spent is greater than 50% in coordination of care (as documented) at patient's floor/unit and/or counseling patient: less than 15 minutes Plan of Care Discussed with: patient Internal Medicine: Result - Labs CBC & Chem 7: 04/15/18 16:20 04/15/18 16:20 Labs: Short CBC 04/14/18 Range/Units 09:07 Neutrophils # 9.0 H (1.6-8.9) K/mcL BMP 04/14/18 09:07 Sodium 134 L Potassium 4.2 Chloride 101 Carbon Dioxide 24 BUN 9 Creatinine 0.54 L Glucose 116 H Calcium 8.0 L - ABG Interpretation ABG results: ABG ABG pH 7.48 pH Units (7.32-7.45) H 04/13/18 16:39 ABG pCO2 32 mmHg (35-45) L 04/13/18 16:39 ABG pO2 74 mmHg (85-104) L 04/13/18 16:39 ABG O2 Saturation 96 % (95-98) 04/13/18 16:39 Consult Discharge Plan - Plan Referrals: NONE,PCP [Primary Care Provider] - (1) Sepsis Qualifiers: Sepsis type: sepsis due to unspecified organism Qualified Code(s): A41.9 - Sepsis, unspecified organism (10) Hepatitis C Qualifiers: Viral hepatitis chronicity: chronic Hepatic coma status: without hepatic coma Qualified Code(s): B18.2 - Chronic viral hepatitis C
--- NOTE | 2018-04-15 11:27 | Infectious Disease Progress No ---
Date of Encounter: 04/15/18 Time of Encounter: 08:55 - Assessment and Plan (1) Sepsis Current Visit: Yes Status: Acute The patient had 3 sepsis criteria on admission. Developed leukocytosis over the weekend. Likely secondary to multifocal pneumonia, bacteremia, and endocarditis. Afebrile since admission. Tachycardia has improved tachypnea has resolved. White blood cell count is normal. Blood cultures drawn 04/10/18 are +3 out of 3 sets for MRSA and strep mitis. Repeat blood cultures drawn 04/11/18 are +1 out of 2 sets for MRSA. Repeat cultures drawn 04/13/18 are NGTD x 2 sets. Recommendations: Await repeat blood cultures. Continue droplet and contact precautions. Send sputum for culture if the patient is able to provide an adequate specimen. Continue Vancomycin IV. Pharmacy to dose. Goal trough ~15. Duration of treatment depends on the clinical picture. Monitor renal function and for drug toxicity and dose-adjust antibiotics. Avoid insertion of central venous access until repeat blood cultures are negative 48 hours. Recommend community mental health social worker to evaluate to assist with discharge planning. The patient will likely need 6-8 weeks of IV antibiotics and will likely require ECF placement on discharge. Qualifiers: Sepsis type: sepsis due to unspecified organism Qualified Code(s): A41.9 - Sepsis, unspecified organism (2) Bacteremia Current Visit: Yes Status: Acute Causative organism: MRSA and strep mitis. Source: IV drug use vs. endocarditis vs. other. Blood cultures drawn 04/10/18 are +3 out of 3 sets for MRSA and strep mitis. Repeat blood cultures drawn 04/11/18 are +1 out of 2 sets for MRSA. No endocarditis stigmata noted on exam. The patient has two major and two minor Modified Bledsoe's criteria. Currently on Vancomycin IV. (3) Endocarditis Current Visit: Yes Status: Acute Location: Tricuspid valve. Causative organism: MRSA and S. mitis. Likely secondary to IV drug use and bacteremia. TTE showed a 1.2 x 1.0cm mobile echodenisty on the tricuspid valve. Cardiology consulted. No surgical intervention recommended at this time. Currently on Vancomycin. Qualifiers: Endocarditis type: infective Infective endocarditis organism: bacterial Chronicity: acute Qualified Code(s): I33.0 - Acute and subacute infective endocarditis (4) Multifocal pneumonia Current Visit: Yes Status: Acute CTA of the chest showed patchy areas of consolidation and groundglass opacities to the lungs bilaterally with lower lung zone predominance concerning for multifocal pneumonia. Causative organism: Unclear, but concern for MRSA. Respiratory infectious panel was negative. Strep pneumo and legionella urinary antigens were negative. Pulmonology consulted. Currently on vancomycin. (5) Septic embolism Current Visit: Yes Status: Acute CT of the chest showed superimposed scattered peripheral nodular opacities, many of which demonstrate cavitation most compatible with septic emboli. Likely secondary to bacteremia and endocarditis. Currently on vancomycin. (6) Transaminitis Current Visit: Yes Status: Acute Likely secondary to sepsis. The patient is hep C positive. Improved. Abdominal exam benign. Recommended GI follow-up as an outpatient. (7) Hyponatremia Current Visit: Yes Status: Resolved (8) Tobacco dependence Current Visit: No Status: Chronic (9) IV drug abuse Current Visit: Yes Status: Acute States last IV drug use was 6 months ago, but she does report smoking methamphetamine 2 weeks ago. HIV is negative. Hepatitis C antibody is positive. (10) Hepatitis C Current Visit: Yes Status: Acute Recommend referral to GI as an outpatient. Qualifiers: Viral hepatitis chronicity: chronic Hepatic coma status: without hepatic coma Qualified Code(s): B18.2 - Chronic viral hepatitis C - Subjective Interval history: Patient seen and examined. No acute events noted overnight. Patient states overall she feels a little bit better today. Denies fevers, chills, or rigors. States pain in her chest persists, but is a little bit better. She reports shortness of breath with exertion. Denies cough. Denies nausea, vomiting, diarrhea, or constipation. Denies abdominal pain or urinary complaints. States her appetite is good. Denies any other pain except as previously mentioned. States her hands and her feet do feel little bit swollen. She denies any oral thrush or any skin lesions. Infect Dis PN-Objective Data - Labs CBC & Chem 7: 04/14/18 09:07 04/14/18 09:07 Labs: Laboratory Results - last 24 hr 04/14/18 13:25 Vancomycin Trough 25 H Cultures: Cultures 04/11/18 11:01 Blood Culture - Final Peripheral Venipuncture Methicillin Resistant S.aureus 04/13/18 16:22 Blood Culture - Preliminary Peripheral Venipuncture Culture is incubating and being continuously monitored for growth. Final report to follow. 04/13/18 12:52 Blood Culture - Preliminary Peripheral Venipuncture Culture is incubating and being continuously monitored for growth. Final report to follow. 04/10/18 08:44 Blood Culture - Final Peripheral Venipuncture Methicillin Resistant S.aureus Streptococcus mitis/S.oralis 04/10/18 06:47 Blood Culture - Final Peripheral Venipuncture Methicillin Resistant S.aureus Streptococcus mitis/S.oralis 04/10/18 07:46 Blood Culture - Preliminary Peripheral Venipuncture Gram Positive Cocci 04/11/18 11:01 Blood Culture - Preliminary Peripheral Venipuncture Culture is incubating and being continuously monitored for growth. Final report to follow. 04/11/18 04:40 Legionella Antigen - Final Urine,Clean Catch Streptococcus pneumoniae Antigen (M - Final Serology 04/11/18 04/10/18 04/10/18 Range/Units 11:01 14:37 14:37 Urine Color (Yellow) Urine Clarity (Clear) Urine pH (5.0-8.0) pH Units Ur Specific [place] (1.010-1.025) Urine Protein (Neg-Trace) mg/dL Urine Glucose (UA) (Normal) mg/dL Urine Ketones (Negative) mg/dL Urine Blood (Negative) Urine Nitrite (Negative) Urine Bilirubin (Negative) Urine Urobilinogen (Normal) mg/dL Ur Leukocyte Esterase (Negative) Urine Microscopic RBC (0-3) per hpf Urine Microscopic WBC (0-3) per hpf Ur Squamous Epith Cells (None-Few) per lpf Urine Bacteria (None-Few) per hpf Hyaline Casts (None-Few) per lpf Ur Culture Indicated? (NO) Urine Test (Negative) Nasal Screen MRSA (PCR) Positive A (Negative) A. baumannii (PCR) Not Detected (Not Detect) Chlamy pneumoniae PCR Not Detected (Not Detect) Adenovirus (PCR) Not Detected (Not Detect) B. pertussis DNA (PCR) Not Detected (Not Detect) B.parapertussis DNA PCR Not Detected (Not Detect) Enedina albicans (PCR) Not Detected (Not Detect) C. glabrata (PCR) Not Detected (Not Detect) C. krusei (PCR) Not Detected (Not Detect) C. parapsilosis (PCR) Not Detected (Not Detect) C. tropicalis (PCR) Not Detected (Not Detect) Coronavirus OC43 (PCR) Not Detected (Not Detect) Coronavirus HKU1 (PCR) Not Detected (Not Detect) Coronavirus 229E (PCR) Not Detected (Not Detect) Coronavirus NL63 (PCR) Not Detected (Not Detect) Enterobacteriac sp PCR Not Detected (Not Detect) E. cloacae complex PCR Not Detected (Not Detect) Enterococcus sp PCR Not Detected (Not Detect) E. coli (PCR) Not Detected (Not Detect) H. influenzae (PCR) Not Detected (Not Detect) Hepatitis A IgM Ab (Nonreactive) Hep Bs Antigen (Nonreactive) Hep B Core IgM Ab (Nonreactive) Hepatitis C Ab Screen (Nonreactive) HIV Ag/Ab Combo Qual (Nonreactive) Human Metapneumovir PCR Not Detected (Not Detect) Influenza A (H1) PCR Not Detected (Not Detect) Influ A (H1N1/09) PCR Not Detected (Not Detect) Influenza A (H3) PCR Not Detected (Not Detect) Influenza A Untype (PCR) Not Detected (Not Detect) Influenza Type B (PCR) Not Detected (Not Detect) Klebsiella oxytoca PCR Not Detected (Not Detect) Klebsiella pneumoniae Not Detected (Not Detect) List. monocytogenes PCR Not Detected (Not Detect) M.pneumoniae DNA (PCR) Not Detected (Not Detect) N. meningitidis (PCR) Not Detected (Not Detect) Parainfluenza 1 (PCR) Not Detected (Not Detect) Parainfluenza 2 (PCR) Not Detected (Not Detect) Parainfluenza 3 (PCR) Not Detected (Not Detect) Parainfluenza 4 (PCR) Not Detected (Not Detect) Proteus species (PCR) Not Detected (Not Detect) RSV (PCR) Not Detected (Not Detect) Entero/Rhino (PCR) Not Detected (Not Detect) Serratia marcescens PCR Not Detected (Not Detect) Staphylococcus sp PCR DETECTED A (Not Detect) Staph aureus (PCR) DETECTED A (Not Detect) mecA-Methicil Res Gene DETECTED A (Not Detect) Streptococcus sp PCR Not Detected (Not Detect) Group A Strep DNA Not Detected (Not Detect) Group B Strep (PCR) Not Detected (Not Detect) Strep pneumoniae (PCR) Not Detected (Not Detect) P. aeruginosa (PCR) Not Detected (Not Detect) Carina/B-Vanco Res Genes Not Detected (Not Detect) KPC (blaKPC) Detect PCR Not Detected (Not Detect) 04/10/18 04/10/18 04/10/18 Range/Units 08:44 07:13 07:13 Urine Color Dark Yellow (Yellow) Urine Clarity Cloudy A (Clear) Urine pH 6.0 (5.0-8.0) pH Units Ur Specific [place] 1.017 (1.010-1.025) Urine Protein 100 H (Neg-Trace) mg/dL Urine Glucose (UA) Normal (Normal) mg/dL Urine Ketones Negative (Negative) mg/dL Urine Blood Moderate H (Negative) Urine Nitrite Positive A (Negative) Urine Bilirubin Small H (Negative) Urine Urobilinogen 4.0 H (Normal) mg/dL Ur Leukocyte Esterase Small H (Negative) Urine Microscopic RBC 0-3 (0-3) per hpf Urine Microscopic WBC 5-15 H (0-3) per hpf Ur Squamous Epith Cells Many H (None-Few) per lpf Urine Bacteria Many H (None-Few) per hpf Hyaline Casts None Seen (None-Few) per lpf Ur Culture Indicated? NO. A (NO) Urine Test Negative (Negative) Nasal Screen MRSA (PCR) (Negative) A. baumannii (PCR) Not Detected (Not Detect) Chlamy pneumoniae PCR (Not Detect) Adenovirus (PCR) (Not Detect) B. pertussis DNA (PCR) (Not Detect) B.parapertussis DNA PCR (Not Detect) Enedina albicans (PCR) Not Detected (Not Detect) C. glabrata (PCR) Not Detected (Not Detect) C. krusei (PCR) Not Detected (Not Detect) C. parapsilosis (PCR) Not Detected (Not Detect) C. tropicalis (PCR) Not Detected (Not Detect) Coronavirus OC43 (PCR) (Not Detect) Coronavirus HKU1 (PCR) (Not Detect) Coronavirus 229E (PCR) (Not Detect) Coronavirus NL63 (PCR) (Not Detect) Enterobacteriac sp PCR Not Detected (Not Detect) E. cloacae complex PCR Not Detected (Not Detect) Enterococcus sp PCR Not Detected (Not Detect) E. coli (PCR) Not Detected (Not Detect) H. influenzae (PCR) Not Detected (Not Detect) Hepatitis A IgM Ab (Nonreactive) Hep Bs Antigen (Nonreactive) Hep B Core IgM Ab (Nonreactive) Hepatitis C Ab Screen (Nonreactive) HIV Ag/Ab Combo Qual (Nonreactive) Human Metapneumovir PCR (Not Detect) Influenza A (H1) PCR (Not Detect) Influ A (H1N1/09) PCR (Not Detect) Influenza A (H3) PCR (Not Detect) Influenza A Untype (PCR) (Not Detect) Influenza Type B (PCR) (Not Detect) Klebsiella oxytoca PCR Not Detected (Not Detect) Klebsiella pneumoniae Not Detected (Not Detect) List. monocytogenes PCR Not Detected (Not Detect) M.pneumoniae DNA (PCR) (Not Detect) N. meningitidis (PCR) Not Detected (Not Detect) Parainfluenza 1 (PCR) (Not Detect) Parainfluenza 2 (PCR) (Not Detect) Parainfluenza 3 (PCR) (Not Detect) Parainfluenza 4 (PCR) (Not Detect) Proteus species (PCR) Not Detected (Not Detect) RSV (PCR) (Not Detect) Entero/Rhino (PCR) (Not Detect) Serratia marcescens PCR Not Detected (Not Detect) Staphylococcus sp PCR DETECTED A (Not Detect) Staph aureus (PCR) DETECTED A (Not Detect) mecA-Methicil Res Gene DETECTED A (Not Detect) Streptococcus sp PCR Not Detected (Not Detect) Group A Strep DNA Not Detected (Not Detect) Group B Strep (PCR) Not Detected (Not Detect) Strep pneumoniae (PCR) Not Detected (Not Detect) P. aeruginosa (PCR) Not Detected (Not Detect) Carina/B-Vanco Res Genes N/A (Not Detect) KPC (blaKPC) Detect PCR N/A (Not Detect) 04/10/18 Range/Units 06:40 Urine Color (Yellow) Urine Clarity (Clear) Urine pH (5.0-8.0) pH Units Ur Specific [place] (1.010-1.025) Urine Protein (Neg-Trace) mg/dL Urine Glucose (UA) (Normal) mg/dL Urine Ketones (Negative) mg/dL Urine Blood (Negative) Urine Nitrite (Negative) Urine Bilirubin (Negative) Urine Urobilinogen (Normal) mg/dL Ur Leukocyte Esterase (Negative) Urine Microscopic RBC (0-3) per hpf Urine Microscopic WBC (0-3) per hpf Ur Squamous Epith Cells (None-Few) per lpf Urine Bacteria (None-Few) per hpf Hyaline Casts (None-Few) per lpf Ur Culture Indicated? (NO) Urine Test (Negative) Nasal Screen MRSA (PCR) (Negative) A. baumannii (PCR) (Not Detect) Chlamy pneumoniae PCR (Not Detect) Adenovirus (PCR) (Not Detect) B. pertussis DNA (PCR) (Not Detect) B.parapertussis DNA PCR (Not Detect) Enedina albicans (PCR) (Not Detect) C. glabrata (PCR) (Not Detect) C. krusei (PCR) (Not Detect) C. parapsilosis (PCR) (Not Detect) C. tropicalis (PCR) (Not Detect) Coronavirus OC43 (PCR) (Not Detect) Coronavirus HKU1 (PCR) (Not Detect) Coronavirus 229E (PCR) (Not Detect) Coronavirus NL63 (PCR) (Not Detect) Enterobacteriac sp PCR (Not Detect) E. cloacae complex PCR (Not Detect) Enterococcus sp PCR (Not Detect) E. coli (PCR) (Not Detect) H. influenzae (PCR) (Not Detect) Hepatitis A IgM Ab Nonreactive (Nonreactive) Hep Bs Antigen Nonreactive (Nonreactive) Hep B Core IgM Ab Nonreactive (Nonreactive) Hepatitis C Ab Screen Reactive H (Nonreactive) HIV Ag/Ab Combo Qual Nonreactive (Nonreactive) Human Metapneumovir PCR (Not Detect) Influenza A (H1) PCR (Not Detect) Influ A (H1N1/09) PCR (Not Detect) Influenza A (H3) PCR (Not Detect) Influenza A Untype (PCR) (Not Detect) Influenza Type B (PCR) (Not Detect) Klebsiella oxytoca PCR (Not Detect) Klebsiella pneumoniae (Not Detect) List. monocytogenes PCR (Not Detect) M.pneumoniae DNA (PCR) (Not Detect) N. meningitidis (PCR) (Not Detect) Parainfluenza 1 (PCR) (Not Detect) Parainfluenza 2 (PCR) (Not Detect) Parainfluenza 3 (PCR) (Not Detect) Parainfluenza 4 (PCR) (Not Detect) Proteus species (PCR) (Not Detect) RSV (PCR) (Not Detect) Entero/Rhino (PCR) (Not Detect) Serratia marcescens PCR (Not Detect) Staphylococcus sp PCR (Not Detect) Staph aureus (PCR) (Not Detect) mecA-Methicil Res Gene (Not Detect) Streptococcus sp PCR (Not Detect) Group A Strep DNA (Not Detect) Group B Strep (PCR) (Not Detect) Strep pneumoniae (PCR) (Not Detect) P. aeruginosa (PCR) (Not Detect) Carina/B-Vanco Res Genes (Not Detect) KPC (blaKPC) Detect PCR (Not Detect) Exam - Constitutional Vitals: Temp Pulse Resp BP Pulse Ox 98.9 F 97 16 130/85 97 04/15/18 07:48 04/15/18 07:48 04/15/18 05:09 04/15/18 07:48 04/15/18 07:48 General appearance: average body habitus, cooperative, no acute distress - Head Head exam: Present: atraumatic, normal inspection, normocephalic - Eye Eye exam: Present: EOMI, normal appearance, PERRL Pupils: Present: normal accommodation Additional comments: No subconjunctival hemorrhage noted. - ENT ENT exam: Present: mucous membranes moist - Neck Neck exam: Present: normal inspection - Respiratory Respiratory exam: Present: CTAB. Absent: rales, respiratory distress, rhonchi, wheezes - Cardiovascular Cardiovascular exam: Present: +S1, +S2, tachycardia. Absent: irregular rhythm - GI/Abdominal GI/Abdominal exam: Present: normal bowel sounds, soft. Absent: distended, tenderness - Extremities Exam Extremities exam: Present: normal inspection, pedal edema (Trace BLE). Absent: joint swelling, tenderness - Neurological Exam Neurological exam: Present: alert, oriented X3, no focal deficits - Psychiatric Psychiatric exam: Present: normal affect, normal mood - Skin Skin exam: Present: dry, intact, normal color, warm Consult Discharge Plan - Plan Referrals: NONE,PCP [Primary Care Provider] - - Attending Attestation I have personally performed a face to face evaluation on this patient. I have reviewed and agree with the care plan. History and Exam by me shows: Assessment and plan: Sepsis Bacteremia with MRSA and Streptococcus mitis IV drug use Hepatitis C Endocarditis: TTE showed 1.21 cm mobile echodensity on the tricuspid valve Recommendations Continue vancomycin for now. Consider cardiothoracic evaluation Appreciate pulmonary input Duration of treatment at least 6 weeks
[2018-04-15 16:27] LABS: Basophils # 0.1 K/mcL (0.0-0.2); Basophils % 0.6 %; Eosinophils # 0.2 K/mcL (0.0-0.6); Eosinophils % 1.9 %; Hematocrit 26.4 % (35.3-44.9); Hemoglobin 8.7 g/dL (11.5-15.4); Immature Granulocytes % 4.1 % (0-4); Lymphocytes # 2.3 K/mcL (0.6-4.6); Lymphocytes % 18.9 %; Mean Corpuscular Hemoglobin 28.1 pg (28.0-33.3); Mean Corpuscular Volume 85.2 fL (83.0-100.0); Mean Platelet Volume 9.4 fL (9.4-12.4); Monocytes # 0.6 K/mcL (0.0-1.3); Neutrophils # 8.4 K/mcL (1.6-8.9); Platelet Count 477 K/mcL (140-400); Red Cell Distribution Width 15.2 % (11.5-14.5); Segmented Neutrophils % 69.5 %
[2018-04-15 16:50] LABS: BUN/Creatinine Ratio 20 (6-26); Blood Urea Nitrogen 12 mg/dL (6-20); Calcium 8.4 mg/dL (8.6-10.3); Carbon Dioxide 23 mEq/L (23-29); Chloride 105 mEq/L (98-107); Glucose 138 mg/dL (70-105); Osmolality,Calculated 280 (280-300); Potassium 4.4 mEq/L (3.5-5.1); Sodium 134 mEq/L (136-145); eGFR For Non-African Americans > 60 (> 60)
--- NOTE | 2018-04-15 21:21 | Electrocardiograph Report ---
[address] [place], [place] [address] Test Date: 2018-04-13 Pat Name: Selena Courtney Department: 111 Room: 2N5 Gender: F [employer] Preparer: MALIK : 1985 Requested By: [id number] Order Number: [id number] Reading MD: Geoff Araujo Measurements Intervals [place] Rate: 122 P: 64 WV: 123 QRS: 34 QRSD: 78 T: 14 QT: 289 QTc: 362 Interpretive Statements SINUS TACHYCARDIA WARNING: DATA QUALITY MAY AFFECT INTERPRETATION Electronically Signed On 04-15-2018 21:19:25 EST by Geoff Araujo
[2018-04-16] MEDS: *HR* OxyCODONE/APAP 5/325 TABLET PO PRN ×4 (01:46→22:40)
[2018-04-16] MEDS: Ketorolac 15 MG/ML VIAL IVP PRN ×4 (01:47→22:41)
[2018-04-16] MEDS: Ipratropium/Albuterol Neb 3 ML IH SCH ×4 (03:57→21:53)
[2018-04-16] MEDS: *HR* Heparin 5,000 UNIT/ML VIAL SQ SCH ×4 (06:24→22:43)
[2018-04-16] MEDS: Nicotine 14 MG PATCH.TD24 TD SCH (08:52)
[2018-04-16] MEDS ORDERED: Furosemide 20 MG/2 ML VIAL IVP ONE ×2 (09:27→09:32)
[2018-04-16 09:40] LABS: Basophils # 0.1 K/mcL (0.0-0.2); Basophils % 0.4 %; Eosinophils # 0.3 K/mcL (0.0-0.6); Eosinophils % 2.8 %; Hematocrit 26.3 % (35.3-44.9); Hemoglobin 8.7 g/dL (11.5-15.4); Immature Granulocytes % 3.9 % (0-4); Lymphocytes # 2.6 K/mcL (0.6-4.6); Lymphocytes % 21.7 %; Mean Corpuscular HGB Conc 33.1 g/dL (31.6-35.5); Mean Corpuscular Hemoglobin 28.2 pg (28.0-33.3); Mean Corpuscular Volume 85.1 fL (83.0-100.0); Mean Platelet Volume 9.6 fL (9.4-12.4); Monocytes # 0.9 K/mcL (0.0-1.3); Neutrophils # 7.8 K/mcL (1.6-8.9); Platelet Count 528 K/mcL (140-400); Red Blood Count 3.09 M/mcL (3.82-4.97); Red Cell Distribution Width 15.1 % (11.5-14.5); Segmented Neutrophils % 64.2 %
[2018-04-16 09:52] LABS: BUN/Creatinine Ratio 21 (6-26); Blood Urea Nitrogen 13 mg/dL (6-20); Calcium 8.4 mg/dL (8.6-10.3); Carbon Dioxide 24 mEq/L (23-29); Chloride 104 mEq/L (98-107); Glucose 97 mg/dL (70-105); Osmolality,Calculated 278 (280-300); Potassium 4.2 mEq/L (3.5-5.1); Sodium 134 mEq/L (136-145); eGFR For Non-African Americans > 60 (> 60)
--- NOTE | 2018-04-16 10:45 | Infectious Disease Progress No ---
Date of Encounter: 04/16/18 Time of Encounter: 09:40 - Assessment and Plan (1) Sepsis Current Visit: Yes Status: Acute The patient had 3 sepsis criteria on admission. Developed leukocytosis over the weekend. Likely secondary to multifocal pneumonia, bacteremia, and endocarditis. Afebrile since admission. Tachycardia has improved tachypnea has resolved. White blood cell count is normal. Blood cultures drawn 04/10/18 are +3 out of 3 sets for MRSA and strep mitis. Repeat blood cultures drawn 04/11/18 are +1 out of 2 sets for MRSA. Repeat cultures drawn 04/13/18 are NGTD x 2 sets. Recommendations: Await repeat blood cultures. Continue droplet and contact precautions. Send sputum for culture if the patient is able to provide an adequate specimen. Continue Vancomycin IV. Pharmacy to dose. Goal trough ~15. Duration of treatment depends on the clinical picture. Monitor renal function and for drug toxicity and dose-adjust antibiotics. Consult VAT for PICC line placement. Recommend social work case manager to evaluate to assist with discharge planning. The pa tient will likely need 6-8 weeks of IV antibiotics and will likely require ECF placement on discharge. Will need weekly CBC, BUN/Cr, and Vanc trough. Will need weekly PICC care per protocol. Follow up with ID 04/30/18 at 1405. Qualifiers: Sepsis type: sepsis due to unspecified organism Qualified Code(s): A41.9 - Sepsis, unspecified organism (2) Bacteremia Current Visit: Yes Status: Resolved Causative organism: MRSA and strep mitis. Source: IV drug use vs. endocarditis vs. other. Blood cultures drawn 04/10/18 are +3 out of 3 sets for MRSA and strep mitis. Repeat blood cultures drawn 04/11/18 are +1 out of 2 sets for MRSA. No endocarditis stigmata noted on exam. The patient has two major and two minor Modified Bledsoe's criteria. Currently on Vancomycin IV. (3) Endocarditis Current Visit: Yes Status: Acute Location: Tricuspid valve. Causative organism: MRSA and S. mitis. Likely secondary to IV drug use and bacteremia. TTE showed a 1.2 x 1.0cm mobile echodenisty on the tricuspid valve. Cardiology consulted. No surgical intervention recommended at this time. Currently on Vancomycin. Qualifiers: Endocarditis type: infective Infective endocarditis organism: bacterial Chronicity: acute Qualified Code(s): I33.0 - Acute and subacute infective endocarditis (4) Multifocal pneumonia Current Visit: Yes Status: Acute CTA of the chest showed patchy areas of consolidation and groundglass opacities to the lungs bilaterally with lower lung zone predominance concerning for multifocal pneumonia. Causative organism: Unclear, but concern for MRSA. Respiratory infectious panel was negative. Strep pneumo and legionella urinary antigens were negative. Pulmonology consulted. Currently on vancomycin. (5) Septic embolism Current Visit: Yes Status: Acute CT of the chest showed superimposed scattered peripheral nodular opacities, many of which demonstrate cavitation most compatible with septic emboli. Likely secondary to bacteremia and endocarditis. Currently on vancomycin. (6) Transaminitis Current Visit: Yes Status: Acute Likely secondary to sepsis. The patient is hep C positive. Improved. Abdominal exam benign. Recommended GI follow-up as an outpatient. (7) Hyponatremia Current Visit: Yes Status: Resolved (8) Tobacco dependence Current Visit: No Status: Chronic (9) IV drug abuse Current Visit: Yes Status: Acute States last IV drug use was 6 months ago, but she does report smoking methamphetamine 2 weeks ago. HIV is negative. Hepatitis C antibody is positive. (10) Hepatitis C Current Visit: Yes Status: Acute Recommend referral to GI as an outpatient. Qualifiers: Viral hepatitis chronicity: chronic Hepatic coma status: without hepatic coma Qualified Code(s): B18.2 - Chronic viral hepatitis C - Subjective Interval history: Patient seen and examined. No acute events noted overnight. Patient states overall she feels a little bit better today. Denies fevers, chills, or rigors. States pain in her chest persists, but is a little bit better and is mainly on exertion. She reports shortness of breath with exertion. Denies cough. Denies nausea, vomiting, diarrhea, or constipation. Denies abdominal pain or urinary complaints. States her appetite is good. Denies any other pain except as previously mentioned. States her hands and her feet do feel little bit swollen. She denies any oral thrush or any skin lesions. Infect Dis PN-Objective Data - Labs CBC & Chem 7: 04/16/18 09:26 04/16/18 09:26 Labs: Laboratory Results - last 24 hr 04/15/18 04/15/18 04/15/18 16:20 16:20 16:20 WBC 12.1 H RBC 3.10 L Hgb 8.7 L Hct 26.4 L MCV 85.2 MCH 28.1 MCHC 33.0 RDW 15.2 H Plt Count 477 H MPV 9.4 Immature Gran % 4.1 H Seg Neutrophils % 69.5 Lymphocytes % 18.9 Monocytes % 5.0 Eosinophils % 1.9 Basophils % 0.6 Neutrophils # 8.4 Lymphocytes # 2.3 Monocytes # 0.6 Eosinophils # 0.2 Basophils # 0.1 Sodium 134 L Potassium 4.4 Chloride 105 Carbon Dioxide 23 BUN 12 Creatinine 0.61 Est GFR ( Amer) > 60 Est GFR (Non-Af Amer) > 60 BUN/Creatinine Ratio 20 Glucose 138 H Calculated Osmolality 280 Calcium 8.4 L Vancomycin Trough 12 H 04/16/18 04/16/18 09:26 09:26 WBC 12.1 H RBC 3.09 L Hgb 8.7 L Hct 26.3 L MCV 85.1 MCH 28.2 MCHC 33.1 RDW 15.1 H Plt Count 528 H MPV 9.6 Immature Gran % 3.9 Seg Neutrophils % 64.2 Lymphocytes % 21.7 Monocytes % 7.0 Eosinophils % 2.8 Basophils % 0.4 Neutrophils # 7.8 Lymphocytes # 2.6 Monocytes # 0.9 Eosinophils # 0.3 Basophils # 0.1 Sodium 134 L Potassium 4.2 Chloride 104 Carbon Dioxide 24 BUN 13 Creatinine 0.61 Est GFR ( Amer) > 60 Est GFR (Non-Af Amer) > 60 BUN/Creatinine Ratio 21 Glucose 97 Calculated Osmolality 278 L Calcium 8.4 L Vancomycin Trough Cultures: Cultures 04/10/18 07:46 Blood Culture - Final Peripheral Venipuncture Methicillin Resistant S.aureus Streptococcus mitis/S.oralis 04/11/18 11:01 Blood Culture - Final Peripheral Venipuncture Methicillin Resistant S.aureus 04/13/18 16:22 Blood Culture - Preliminary Peripheral Venipuncture Culture is incubating and being continuously monitored for growth. Final report to follow. 04/13/18 12:52 Blood Culture - Preliminary Peripheral Venipuncture Culture is incubating and being continuously monitored for growth. Final report to follow. 04/10/18 08:44 Blood Culture - Final Peripheral Venipuncture Methicillin Resistant S.aureus Streptococcus mitis/S.oralis 04/10/18 06:47 Blood Culture - Final Peripheral Venipuncture Methicillin Resistant S.aureus Streptococcus mitis/S.oralis 04/11/18 11:01 Blood Culture - Preliminary Peripheral Venipuncture Culture is incubating and being continuously monitored for growth. Final report to follow. 04/11/18 04:40 Legionella Antigen - Final Urine,Clean Catch Streptococcus pneumoniae Antigen (M - Final Serology 04/11/18 04/10/18 04/10/18 Range/Units 11:01 14:37 14:37 Urine Color (Yellow) Urine Clarity (Clear) Urine pH (5.0-8.0) pH Units Ur Specific [place] (1.010-1.025) Urine Protein (Neg-Trace) mg/dL Urine Glucose (UA) (Normal) mg/dL Urine Ketones (Negative) mg/dL Urine Blood (Negative) Urine Nitrite (Negative) Urine Bilirubin (Negative) Urine Urobilinogen (Normal) mg/dL Ur Leukocyte Esterase (Negative) Urine Microscopic RBC (0-3) per hpf Urine Microscopic WBC (0-3) per hpf Ur Squamous Epith Cells (None-Few) per lpf Urine Bacteria (None-Few) per hpf Hyaline Casts (None-Few) per lpf Ur Culture Indicated? (NO) Urine Test (Negative) Nasal Screen MRSA (PCR) Positive A (Negative) A. baumannii (PCR) Not Detected (Not Detect) Chlamy pneumoniae PCR Not Detected (Not Detect) Adenovirus (PCR) Not Detected (Not Detect) B. pertussis DNA (PCR) Not Detected (Not Detect) B.parapertussis DNA PCR Not Detected (Not Detect) Enedina albicans (PCR) Not Detected (Not Detect) C. glabrata (PCR) Not Detected (Not Detect) C. krusei (PCR) Not Detected (Not Detect) C. parapsilosis (PCR) Not Detected (Not Detect) C. tropicalis (PCR) Not Detected (Not Detect) Coronavirus OC43 (PCR) Not Detected (Not Detect) Coronavirus HKU1 (PCR) Not Detected (Not Detect) Coronavirus 229E (PCR) Not Detected (Not Detect) Coronavirus NL63 (PCR) Not Detected (Not Detect) Enterobacteriac sp PCR Not Detected (Not Detect) E. cloacae complex PCR Not Detected (Not Detect) Enterococcus sp PCR Not Detected (Not Detect) E. coli (PCR) Not Detected (Not Detect) H. influenzae (PCR) Not Detected (Not Detect) Hepatitis A IgM Ab (Nonreactive) Hep Bs Antigen (Nonreactive) Hep B Core IgM Ab (Nonreactive) Hepatitis C Ab Screen (Nonreactive) HIV Ag/Ab Combo Qual (Nonreactive) Human Metapneumovir PCR Not Detected (Not Detect) Influenza A (H1) PCR Not Detected (Not Detect) Influ A (H1N1/09) PCR Not Detected (Not Detect) Influenza A (H3) PCR Not Detected (Not Detect) Influenza A Untype (PCR) Not Detected (Not Detect) Influenza Type B (PCR) Not Detected (Not Detect) Klebsiella oxytoca PCR Not Detected (Not Detect) Klebsiella pneumoniae Not Detected (Not Detect) List. monocytogenes PCR Not Detected (Not Detect) M.pneumoniae DNA (PCR) Not Detected (Not Detect) N. meningitidis (PCR) Not Detected (Not Detect) Parainfluenza 1 (PCR) Not Detected (Not Detect) Parainfluenza 2 (PCR) Not Detected (Not Detect) Parainfluenza 3 (PCR) Not Detected (Not Detect) Parainfluenza 4 (PCR) Not Detected (Not Detect) Proteus species (PCR) Not Detected (Not Detect) RSV (PCR) Not Detected (Not Detect) Entero/Rhino (PCR) Not Detected (Not Detect) Serratia marcescens PCR Not Detected (Not Detect) Staphylococcus sp PCR DETECTED A (Not Detect) Staph aureus (PCR) DETECTED A (Not Detect) mecA-Methicil Res Gene DETECTED A (Not Detect) Streptococcus sp PCR Not Detected (Not Detect) Group A Strep DNA Not Detected (Not Detect) Group B Strep (PCR) Not Detected (Not Detect) Strep pneumoniae (PCR) Not Detected (Not Detect) P. aeruginosa (PCR) Not Detected (Not Detect) Carina/B-Vanco Res Genes Not Detected (Not Detect) KPC (blaKPC) Detect PCR Not Detected (Not Detect) 04/10/18 04/10/18 04/10/18 Range/Units 08:44 07:13 07:13 Urine Color Dark Yellow (Yellow) Urine Clarity Cloudy A (Clear) Urine pH 6.0 (5.0-8.0) pH Units Ur Specific [place] 1.017 (1.010-1.025) Urine Protein 100 H (Neg-Trace) mg/dL Urine Glucose (UA) Normal (Normal) mg/dL Urine Ketones Negative (Negative) mg/dL Urine Blood Moderate H (Negative) Urine Nitrite Positive A (Negative) Urine Bilirubin Small H (Negative) Urine Urobilinogen 4.0 H (Normal) mg/dL Ur Leukocyte Esterase Small H (Negative) Urine Microscopic RBC 0-3 (0-3) per hpf Urine Microscopic WBC 5-15 H (0-3) per hpf Ur Squamous Epith Cells Many H (None-Few) per lpf Urine Bacteria Many H (None-Few) per hpf Hyaline Casts None Seen (None-Few) per lpf Ur Culture Indicated? NO. A (NO) Urine Test Negative (Negative) Nasal Screen MRSA (PCR) (Negative) A. baumannii (PCR) Not Detected (Not Detect) Chlamy pneumoniae PCR (Not Detect) Adenovirus (PCR) (Not Detect) B. pertussis DNA (PCR) (Not Detect) B.parapertussis DNA PCR (Not Detect) Enedina albicans (PCR) Not Detected (Not Detect) C. glabrata (PCR) Not Detected (Not Detect) C. krusei (PCR) Not Detected (Not Detect) C. parapsilosis (PCR) Not Detected (Not Detect) C. tropicalis (PCR) Not Detected (Not Detect) Coronavirus OC43 (PCR) (Not Detect) Coronavirus HKU1 (PCR) (Not Detect) Coronavirus 229E (PCR) (Not Detect) Coronavirus NL63 (PCR) (Not Detect) Enterobacteriac sp PCR Not Detected (Not Detect) E. cloacae complex PCR Not Detected (Not Detect) Enterococcus sp PCR Not Detected (Not Detect) E. coli (PCR) Not Detected (Not Detect) H. influenzae (PCR) Not Detected (Not Detect) Hepatitis A IgM Ab (Nonreactive) Hep Bs Antigen (Nonreactive) Hep B Core IgM Ab (Nonreactive) Hepatitis C Ab Screen (Nonreactive) HIV Ag/Ab Combo Qual (Nonreactive) Human Metapneumovir PCR (Not Detect) Influenza A (H1) PCR (Not Detect) Influ A (H1N1/09) PCR (Not Detect) Influenza A (H3) PCR (Not Detect) Influenza A Untype (PCR) (Not Detect) Influenza Type B (PCR) (Not Detect) Klebsiella oxytoca PCR Not Detected (Not Detect) Klebsiella pneumoniae Not Detected (Not Detect) List. monocytogenes PCR Not Detected (Not Detect) M.pneumoniae DNA (PCR) (Not Detect) N. meningitidis (PCR) Not Detected (Not Detect) Parainfluenza 1 (PCR) (Not Detect) Parainfluenza 2 (PCR) (Not Detect) Parainfluenza 3 (PCR) (Not Detect) Parainfluenza 4 (PCR) (Not Detect) Proteus species (PCR) Not Detected (Not Detect) RSV (PCR) (Not Detect) Entero/Rhino (PCR) (Not Detect) Serratia marcescens PCR Not Detected (Not Detect) Staphylococcus sp PCR DETECTED A (Not Detect) Staph aureus (PCR) DETECTED A (Not Detect) mecA-Methicil Res Gene DETECTED A (Not Detect) Streptococcus sp PCR Not Detected (Not Detect) Group A Strep DNA Not Detected (Not Detect) Group B Strep (PCR) Not Detected (Not Detect) Strep pneumoniae (PCR) Not Detected (Not Detect) P. aeruginosa (PCR) Not Detected (Not Detect) Carina/B-Vanco Res Genes N/A (Not Detect) KPC (blaKPC) Detect PCR N/A (Not Detect) 04/10/18 Range/Units 06:40 Urine Color (Yellow) Urine Clarity (Clear) Urine pH (5.0-8.0) pH Units Ur Specific [place] (1.010-1.025) Urine Protein (Neg-Trace) mg/dL Urine Glucose (UA) (Normal) mg/dL Urine Ketones (Negative) mg/dL Urine Blood (Negative) Urine Nitrite (Negative) Urine Bilirubin (Negative) Urine Urobilinogen (Normal) mg/dL Ur Leukocyte Esterase (Negative) Urine Microscopic RBC (0-3) per hpf Urine Microscopic WBC (0-3) per hpf Ur Squamous Epith Cells (None-Few) per lpf Urine Bacteria (None-Few) per hpf Hyaline Casts (None-Few) per lpf Ur Culture Indicated? (NO) Urine Test (Negative) Nasal Screen MRSA (PCR) (Negative) A. baumannii (PCR) (Not Detect) Chlamy pneumoniae PCR (Not Detect) Adenovirus (PCR) (Not Detect) B. pertussis DNA (PCR) (Not Detect) B.parapertussis DNA PCR (Not Detect) Enedina albicans (PCR) (Not Detect) C. glabrata (PCR) (Not Detect) C. krusei (PCR) (Not Detect) C. parapsilosis (PCR) (Not Detect) C. tropicalis (PCR) (Not Detect) Coronavirus OC43 (PCR) (Not Detect) Coronavirus HKU1 (PCR) (Not Detect) Coronavirus 229E (PCR) (Not Detect) Coronavirus NL63 (PCR) (Not Detect) Enterobacteriac sp PCR (Not Detect) E. cloacae complex PCR (Not Detect) Enterococcus sp PCR (Not Detect) E. coli (PCR) (Not Detect) H. influenzae (PCR) (Not Detect) Hepatitis A IgM Ab Nonreactive (Nonreactive) Hep Bs Antigen Nonreactive (Nonreactive) Hep B Core IgM Ab Nonreactive (Nonreactive) Hepatitis C Ab Screen Reactive H (Nonreactive) HIV Ag/Ab Combo Qual Nonreactive (Nonreactive) Human Metapneumovir PCR (Not Detect) Influenza A (H1) PCR (Not Detect) Influ A (H1N1/09) PCR (Not Detect) Influenza A (H3) PCR (Not Detect) Influenza A Untype (PCR) (Not Detect) Influenza Type B (PCR) (Not Detect) Klebsiella oxytoca PCR (Not Detect) Klebsiella pneumoniae (Not Detect) List. monocytogenes PCR (Not Detect) M.pneumoniae DNA (PCR) (Not Detect) N. meningitidis (PCR) (Not Detect) Parainfluenza 1 (PCR) (Not Detect) Parainfluenza 2 (PCR) (Not Detect) Parainfluenza 3 (PCR) (Not Detect) Parainfluenza 4 (PCR) (Not Detect) Proteus species (PCR) (Not Detect) RSV (PCR) (Not Detect) Entero/Rhino (PCR) (Not Detect) Serratia marcescens PCR (Not Detect) Staphylococcus sp PCR (Not Detect) Staph aureus (PCR) (Not Detect) mecA-Methicil Res Gene (Not Detect) Streptococcus sp PCR (Not Detect) Group A Strep DNA (Not Detect) Group B Strep (PCR) (Not Detect) Strep pneumoniae (PCR) (Not Detect) P. aeruginosa (PCR) (Not Detect) Carina/B-Vanco Res Genes (Not Detect) KPC (blaKPC) Detect PCR (Not Detect) Exam - Constitutional Vitals: Temp Pulse Resp BP Pulse Ox 98.1 F 97 14 144/95 95 04/16/18 07:13 04/16/18 07:13 04/16/18 07:13 04/16/18 07:13 04/16/18 07:13 General appearance: average body habitus, cooperative, no acute distress - Head Head exam: Present: atraumatic, normal inspection, normocephalic - Eye Eye exam: Present: EOMI, normal appearance, PERRL Pupils: Present: normal accommodation Additional comments: No subconjunctival hemorrhage noted. - ENT ENT exam: Present: mucous membranes moist - Neck Neck exam: Present: normal inspection - Respiratory Respiratory exam: Present: CTAB. Absent: rales, respiratory distress, rhonchi, wheezes - Cardiovascular Cardiovascular exam: Present: +S1, +S2, tachycardia. Absent: irregular rhythm - GI/Abdominal GI/Abdominal exam: Present: normal bowel sounds, soft. Absent: distended, tenderness - Extremities Exam Extremities exam: Present: normal inspection. Absent: joint swelling, pedal edema, tenderness Additional comments: No endocarditis stigmata noted. - Neurological Exam Neurological exam: Present: alert, oriented X3, no focal deficits - Psychiatric Psychiatric exam: Present: normal affect, normal mood - Skin Skin exam: Present: dry, intact, normal color, warm Consult Discharge Plan - Plan Referrals: NONE,PCP [Primary Care Provider] - Selena Burks, ANIMAL REHABILITATOR [Advanced Practice Nurse] - 04/30/18 2:05 pm - Attending Attestation I have personally performed a face to face evaluation on this patient. I have reviewed and agree with the care plan. History and Exam by me shows: Assessment and plan: Sepsis Bacteremia with MRSA and Streptococcus mitis IV drug use Hepatitis C Endocarditis: TTE showed 1.21 cm mobile echodensity on the tricuspid valve Recommendations Continue vancomycin for now. Consider cardiothoracic evaluation Appreciate pulmonary input Duration of treatment at least 6 weeks
--- NOTE | 2018-04-16 12:56 | Internal Med Progress Note ---
Hospitalist Progress Note - Encounter Date of Encounter: 04/16/18 Time of Encounter: 13:23 - Subjective Interval History: Pt states chest pain persists but slowly improving. Also still SOB but improving as well. She had nasal cannula off and was satting at 95% at rest. She was on 4L NC of oxygen 04/15/18. She is on room air at baseline. She denies fever, chills, N/V or diarrhea. - Exam Vitals: Temp Pulse Resp BP Pulse Ox 98 F 99 18 146/88 95 04/16/18 11:24 04/16/18 11:24 04/16/18 11:24 04/16/18 11:24 04/16/18 11:24 Exam: Exam: CONSTITUTIONAL: patient appears as an age appropriate female in no acute distress. EYES: Clear sclerae, bilateral pupils are equal, reactive to light. EMOI. RESPIRATORY: Bilateral reduced BS to auscultation but tachypnea improving. No noted shallow breaths and breathing not rapid. No use of accessory muscle. No wheezing, no crackles/rales. CARDIOVASCULAR: Regular heart rate, normal S1 and S2, no murmurs GASTROINTESTINAL: bowel sounds present, soft, no tenderness. MUSCULOSKELETAL: Joints in normal range of motion, no clubbing, no edema, no cyanosis. Bilateral peripheral pulses 2+. NEUROLOGIC: CN II to XII are grossly intact, no focal neurological deficit. - Assessment and Plan (1) Sepsis Current Visit: Yes Status: Acute Assessment and Plan: Pt came in with fevers , tachycardia and a multifocal pneumonia in setting of IV drug abuse. CTA chest 04/10/2018 showed septic emboli and pneumonia. 2D echo 04/10/2018 showed infective endocarditis, possibly MRSA endocarditis. Results of echo below. Blood cultures 04/10/18 positive for MRSA, strep mitis/S.oralis. Pt has been on IV antibiotics with vanc and ceftriaxone. Then switched to Zosyn and Levaquin. Repeat blood cultures drawn 04/11/18 are +1 out of 2 sets for gram-positive cocci, MRSA per the PCR. ID consulted and appreciate recs. On Vancomyicn. Zosyn and levaquin discontinued. Awaiting placement at SNF for in patient antibiotic therapy Echo EV/EV echocardiogram Impressions: LVEF 60-65%. Normal left ventricular diastolic function. Normal right ventricular structure and function. Small sized, mobile echodensity attached to the anterior leaflet of the tricuspid valve measuring 1.2x1.0cm associated with mild to moderate tricuspid regurgitation. Borderline pulmonary hypertension, RVSP 36 mmHg. Findings communicated to ordering provider. (2) Endocarditis due to Staphylococcus Current Visit: Yes Status: Acute Assessment and Plan: Pt is on antibiotics. 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 Will continue vancomycin and duration per ID. ID on board. (3) Multifocal pneumonia Current Visit: Yes Status: Acute Assessment and Plan: Continue antibiotics with Vancomycin. Blood cultures incubating. (4) Septic embolism Current Visit: Yes Status: Acute Assessment and Plan: Secondary to IV drug abuse. Continue antibiotics. HIV Ag/Ab non-reactive Chest CT CT/CT angio chest IMPRESSION: Negative study for pulmonary embolism. Patchy areas of consolidation and ground-glass opacity to the lungs bilaterally with lower lung zone predominance concerning for multifocal pneumonia. Superimposed scattered peripheral nodular opacities, many of which demonstrate cavitation most compatible with septic emboli given the clinical history. Continued follow-up is recommended. Small right pleural effusion and trace left pleural effusion. Nonspecific mediastinal and bilateral hilar lymphadenopathy but likely reactive. Attention can be paid on follow-up. (5) IV drug abuse Current Visit: Yes Status: Acute Assessment and Plan: Pt admits to IV durg use and states " I've been clean since 2008." Nurse noted track levine that may be more recent Counseled (6) Hyponatremia Current Visit: Yes Status: Resolved Assessment and Plan: Improving. IV fluids with normal saline. Will monitor BMP (7) Acute hypoxemic respiratory failure Current Visit: Yes Status: Acute Assessment and Plan: Multifocal PNA likely due to MRSA. Continue antibiotic. CTA negative for PE Evaluated by pulmonology and pt started on bronchodilators. incentive spirometry ordered. Slowly improving (8) Hypoxia Current Visit: Yes Status: Acute Assessment and Plan: Pt on 4L NC and has had dyspnea with minimal exertion. ABG showed pH 7.48, pCO2 32, pO2 74, Sat 96% on 4L NC. CTA negative study for PE. Showing some improvement 04/16/18 Pulmonology evaluated and started on nebs, appreciate input. Code(s): R09.02 - Hypoxemia (9) Bacteremia Current Visit: Yes Status: Resolved Assessment and Plan: MRSA. On Vancomycin (10) Hepatitis C Current Visit: Yes Status: Acute Assessment and Plan: Follow up out pt with PCP for possible GI referral. Concern for fresh track levine per nurse. Pt will need to be durg free for 6 months or greater in other to be able to participate in Hep C management. DVT Prophylaxis: Heparin - Summary of Assessment and Plan Summary of Assessment and Plan: History of present illness: Dr. Lin Ms. Courtney is a 32 year old female with history of IV drug abuse presenting with complaints of right sided, chest pain, fevers, chills and shortness of breath of about 3 days duration. Patient admits to IV drug abuse, last use was reportedly about 6 months ago. She reports she was walking along [address] about 3 days ago when she she noticed she was getting progressively short of breath and experiencing chest pain with deep breaths. Symptoms have been getting progressively worse with fevers and chills. She denies any coughing, nausea, vomiting or diarrhea. In the ER, a CT chest was doen showing multifocal pneumonia and septic emboli. She was started on vanc and ceftriaxone and is being admitted for further management. - Time Spent with Patient Total time spent is greater than 50% in coordination of care (as documented) at patient's floor/unit and/or counseling patient: less than 15 minutes Plan of Care Discussed with: patient Internal Medicine: Result - Labs CBC & Chem 7: 04/16/18 09:26 04/16/18 09:26 Labs: Short CBC 04/15/18 04/16/18 Range/Units 16:20 09:26 WBC 12.1 H 12.1 H (4.3-11.1) K/mcL Hgb 8.7 L 8.7 L (11.5-15.4) g/dL Hct 26.4 L 26.3 L (35.3-44.9) % Plt Count 477 H 528 H (140-400) K/mcL Neutrophils # 8.4 7.8 (1.6-8.9) K/mcL BMP 04/15/18 04/16/18 16:20 09:26 Sodium 134 L 134 L Potassium 4.4 4.2 Chloride 105 104 Carbon Dioxide 23 24 BUN 12 13 Creatinine 0.61 0.61 Glucose 138 H 97 Calcium 8.4 L 8.4 L - ABG Interpretation ABG results: ABG ABG pH 7.48 pH Units (7.32-7.45) H 04/13/18 16:39 ABG pCO2 32 mmHg (35-45) L 04/13/18 16:39 ABG pO2 74 mmHg (85-104) L 04/13/18 16:39 ABG O2 Saturation 96 % (95-98) 04/13/18 16:39 Consult Discharge Plan - Plan Referrals: Selena Burks, BAR WAITER/WAITRESS [Advanced Practice Nurse] - 04/30/18 2:05 pm NONE,PCP [Primary Care Provider] - (1) Sepsis Qualifiers: Sepsis type: sepsis due to unspecified organism Qualified Code(s): A41.9 - Sepsis, unspecified organism (10) Hepatitis C Qualifiers: Viral hepatitis chronicity: chronic Hepatic coma status: without hepatic coma Qualified Code(s): B18.2 - Chronic viral hepatitis C
[2018-04-17] MEDS: Ipratropium/Albuterol Neb 3 ML IH SCH ×3 (03:54→16:07)
[2018-04-17] MEDS: Ketorolac 15 MG/ML VIAL IVP PRN ×2 (04:39→13:41)
[2018-04-17] MEDS: *HR* OxyCODONE/APAP 5/325 TABLET PO PRN ×3 (04:39→17:39)
[2018-04-17] MEDS: *HR* Heparin 5,000 UNIT/ML VIAL SQ SCH ×2 (06:03→13:41)
[2018-04-17] MEDS: Nicotine 14 MG PATCH.TD24 TD SCH (10:01)
[2018-04-17 13:40] VITALS: BP 146/88
--- NOTE | 2018-04-17 14:20 | Discharge Summary ---
- NOTES TO OUTPATIENT PROVIDER Notes to Outpatient Provider: Admitted with tricuspid valve infective endocarditis with septic emboli. Will be placed for IV antibiotics to 6-8 weeks, infectious disease following as an outpatient Orders not resulted at time of discharge: Pending orders 04/10/18 14:30 Culture,Sputum with Gram Stain [RM] Routine 04/13/18 16:22 Culture,Blood [BC] Stat Date of Encounter: 04/17/18 Time of Encounter: 14:18 - Discharge Diagnosis (1) Sepsis Priority: Primary Status: Resolved Qualifiers: Sepsis type: sepsis due to unspecified organism Qualified Code(s): A41.9 - Sepsis, unspecified organism (2) Multifocal pneumonia Priority: Primary Status: Acute (3) Septic embolism Priority: Primary Status: Acute (4) IV drug abuse Priority: Primary Status: Chronic (5) Hyponatremia Priority: Secondary Status: Resolved (6) Endocarditis due to Staphylococcus Priority: Primary Status: Acute (7) Hepatitis C Priority: Secondary Status: Chronic Qualifiers: Viral hepatitis chronicity: chronic Hepatic coma status: without hepatic coma Qualified Code(s): B18.2 - Chronic viral hepatitis C (8) Bacteremia Priority: Secondary Status: Resolved (9) Hypoxia Priority: Secondary Status: Acute Code(s): R09.02 - Hypoxemia (10) Acute hypoxemic respiratory failure Priority: Secondary Status: Acute Hospital course: Ms. Courtney is a 32 year old female with history of IV drug use who presented with right-sided chest pain fevers and chills. She did state that her last IV drug use was approximately [address] scan showed multiple cavitary lesions and echocardiogram revealed vegetation on the tricuspid valve. Infectious disease was consulted and patient was placed on IV vancomycin. Blood cultures were positive for MRSA. Most recent set on April 13 were negative. Patient has gradually improved. She will be discharged to [facility] with a PICC line for 6-8 weeks of IV antibiotics. Discharge discussed with: patient - Time Spent with Patient Total time spent providing and/or coordinating discharge services: - Discharge Medications Prescriptions: OxyCODONE/APAP 5/325 [Percocet 5/325 MG] 1 each PO Q6HR PRN 3 Days #10 tablet PRN Reason: severe pain Vancomycin HCl in 5 % Dextrose [Vancomycin 1.75 Gram/500Ml-D5w] 1.75 gm IV Q12H #1 plast..bag Home Medications: Acetaminophen [Tylenol] 650 mg PO Q6HR PRN tablet 04/17/18 [Rx] Ipratropium/Albuterol Neb [Duoneb] 3 ml IH [id number] PRN inhsol 04/17/18 [Rx] Nicotine Patch [Nicoderm] 14 mg TD DAILY patch.td24 04/17/18 [Rx] OxyCODONE/APAP 5/325 [Percocet 5/325 MG] 1 each PO Q6HR PRN 3 Days #10 tablet 04/17/18 [Rx] Vancomycin HCl in 5 % Dextrose [Vancomycin 1.75 Gram/500Ml-D5w] 1.75 gm IV Q12H #1 plast..bag 04/17/18 [Rx] Allergies/Adverse Reactions: Allergy/AdvReac Type Severity Reaction Status Date / Time ondansetron AdvReac Headache Verified 11/01/17 19:17 [From Zofran (as hydrochloride)] tramadol [From Ultram] AdvReac Headache Verified 11/01/17 19:17 Date of admission: 04/10/18 13:19 Primary care physician: PCP NONE Consults: 04/10/18 09:07 Consult to Infectious Diseases [CONS] Routine Consulting Provider: Infectious Disease Kera Reason for Consult: multifocal pneumonia with spetic emboli query infective endocarditis Call Completed: No 04/13/18 12:27 Consult to Pulmonology [CONS] Routine Consulting Provider: Pulm Crit [facility] Kera Reason for Consult: Hypoxia and septic emboli Call Completed: Yes 04/13/18 12:46 Consult to Nurse Navigator [CONS] Routine Comment: Multifocal pneumonia;*IVDU*;Endocarditis 04/15/18 14:43 Consult to Physical Therapy [CONS] Routine Comment: Evaluate, develop and implement POC Reason for Consult: Deconditioning, activitiy tolerance. Does patient have active BEDREST order?: No Is patient medically & hemodynamically stable?: Yes Patient assessed for mobility or mobilized this visit?: Yes OT [Consult to Occupational Therapy] [CONS] Routine Comment: Evaluate, develop and implement POC Reason for Consult: Deconditioning and activity tolerance. Does patient have active BEDREST order?: No Is patient medically & hemodynamically stable?: Yes 04/15/18 15:04 Consult to Physical Therapy [CONS] Routine Comment: Evaluate, develop and implement POC Reason for Consult: Requested by ECF Does patient have active BEDREST order?: No Is patient medically & hemodynamically stable?: Yes Discharging clinician: Jed Del Castillo Anticipated date of discharge: 04/17/18 - Constitutional Vitals: Temp Pulse Resp BP Pulse Ox 98.2 F 101 32 146/88 95 04/17/18 13:38 04/17/18 13:38 04/17/18 13:38 04/17/18 13:38 04/17/18 13:38 General appearance: Present: A&O X 3 Exam: appears uncomfortable - Respiratory Respiratory exam: Present: decreased breath sounds, rhonchi (b/l) - Cardiovascular Cardiovascular exam: Present: RRR. Absent: gallop, rubs, systolic murmur - GI/Abdominal GI/Abdominal exam: Present: normal bowel sounds, soft. Absent: distended, tenderness - Patient Status Disposition: Transfer SNF Condition: Fair Functional capacity at discharge: independent ambulation Overall status at discharge: patient is progressing back to baseline - Discharge Instructions Follow Up With: Selena Burks THERAPEUTIC RECREATION LEADER [Advanced Practice Nurse] - 04/30/18 2:05 pm NONE,PCP [Primary Care Provider] - (1 week) Additional Instructions: Please follow-up with your primary care provider within one week Please follow-up with scheduled. Please complete your IV antibiotics. - Diet and Activity Activity: increase activity as tolerated Diet: advance to your usual diet
--- NOTE | 2018-04-17 15:06 | Physician Discharge Referral ---
ExtendedCare Referral Info Provider in Charge after Transfer: PCP Institutional Level of Care: Skilled - Diagnosis (1) Sepsis Priority: Primary Status: Resolved (2) Multifocal pneumonia Priority: Primary Status: Acute (3) Septic embolism Priority: Primary Status: Acute (4) IV drug abuse Priority: Secondary Status: Chronic (5) Hyponatremia Priority: Secondary Status: Resolved (6) Endocarditis due to Staphylococcus Priority: Primary Status: Acute (7) Hepatitis C Priority: Secondary Status: Chronic (8) Bacteremia Priority: Primary Status: Resolved (9) Hypoxia Priority: Secondary Status: Acute (10) Acute hypoxemic respiratory failure Priority: Primary Status: Acute Prognosis: Fair Aware of Diagnosis: Patient Aware of Prognosis: Patient - Transfer Medications Prescriptions: OxyCODONE/APAP 5/325 [Percocet 5/325 MG] 1 each PO Q6HR PRN 3 Days #10 tablet PRN Reason: severe pain Vancomycin HCl in 5 % Dextrose [Vancomycin 1.75 Gram/500Ml-D5w] 1.75 gm IV Q12H #1 plast..bag Home Medications: Acetaminophen [Tylenol] 650 mg PO Q6HR PRN tablet 04/17/18 [Rx] Ipratropium/Albuterol Neb [Duoneb] 3 ml IH Q2UOIED PRN inhsol 04/17/18 [Rx] Nicotine Patch [Nicoderm] 14 mg TD DAILY patch.td24 04/17/18 [Rx] OxyCODONE/APAP 5/325 [Percocet 5/325 MG] 1 each PO Q6HR PRN 3 Days #10 tablet 04/17/18 [Rx] Vancomycin HCl in 5 % Dextrose [Vancomycin 1.75 Gram/500Ml-D5w] 1.75 gm IV Q12H #1 plast..bag 04/17/18 [Rx] Allergies/Adverse Reactions: Allergy/AdvReac Type Severity Reaction Status Date / Time ondansetron AdvReac Headache Verified 11/01/17 19:17 [From Zofran (as hydrochloride)] tramadol [From Ultram] AdvReac Headache Verified 11/01/17 19:17 - Respiratory Orders Oxygen / L per min (2) Smoking Cessation: Smoking cessation has been advised. For more information, call the [place] Tobacco Quit Line at 7-932-TYSX-NOW. - Lab Orders Lab Orders: Other (include drug levels w/frequency) (see rx) - Ancillary Orders May use pressure relief devices daily prn - Advance Directives Living Will: No Power of Cartoon Designer for Health Care: No Code Status: Full Code - Mobility Orders Ambulate - Rehabiliation Orders Rehab Potential: Good Rehab Orders: Evaluation for Physical Therapy, Evaluation for Occupational Therapy - Treatments Skin tear care topically daily PRN per policy, May check for fecal impaction rectally daily PRN, Fleet enema rectally every other day PRN cleansing purposes List/Other: IV abx infusion - Diet Orders Regular CERTIFICATION: I certify that the transfer of the above named patient to an Extended Care Facility is necessary for the continuing treatment of the diagnosis listed. The above information is true and accurate reflection of patient's current condition. Confidential - Redisclosure prohibited without a patient's written consent.
--- NOTE | 2018-04-17 15:58 | Infectious Disease Progress No ---
Date of Encounter: 04/17/18 Time of Encounter: 15:56 - Assessment and Plan (1) Sepsis Current Visit: Yes Status: Resolved The patient had 3 sepsis criteria on admission. Developed leukocytosis over the weekend. Likely secondary to multifocal pneumonia, bacteremia, and endocarditis. Afebrile since admission. Tachycardia has improved tachypnea has resolved. White blood cell count is normal. Blood cultures drawn 04/10/18 are +3 out of 3 sets for MRSA and strep mitis. Repeat blood cultures drawn 04/11/18 are +1 out of 2 sets for MRSA. Repeat cultures drawn 04/13/18 are NGTD x 2 sets. Recommendations: Placed PICC line Vancomycin prescription written for 1750 mg every 12 hours Check vancomycin trough Friday before the a.m. dose Goal vancomycin trough around 15 Duration of treatment at least 6 weeks Will need weekly CBC, BUN/Cr, and Vanc trough. Will need weekly PICC care per protocol. Follow up with ID 04/30/18 at 1405. Qualifiers: Sepsis type: sepsis due to unspecified organism Qualified Code(s): A41.9 - Sepsis, unspecified organism (2) Bacteremia Current Visit: Yes Status: Resolved Causative organism: MRSA and strep mitis. Source: IV drug use vs. endocarditis vs. other. Blood cultures drawn 04/10/18 are +3 out of 3 sets for MRSA and strep mitis. Repeat blood cultures drawn 04/11/18 are +1 out of 2 sets for MRSA. No endocarditis stigmata noted on exam. The patient has two major and two minor Modified Bledsoe's criteria. Currently on Vancomycin IV. (3) Endocarditis Current Visit: Yes Status: Acute Location: Tricuspid valve. Causative organism: MRSA and S. mitis. Likely secondary to IV drug use and bacteremia. TTE showed a 1.2 x 1.0cm mobile echodenisty on the tricuspid valve. Cardiology consulted. No surgical intervention recommended at this time. Currently on Vancomycin. Qualifiers: Endocarditis type: infective Infective endocarditis organism: bacterial Chronicity: acute Qualified Code(s): I33.0 - Acute and subacute infective e ndocarditis (4) Multifocal pneumonia Current Visit: Yes Status: Acute CTA of the chest showed patchy areas of consolidation and groundglass opacities to the lungs bilaterally with lower lung zone predominance concerning for mult ifocal pneumonia. Causative organism: Unclear, but concern for MRSA. Respiratory infectious panel was negative. Strep pneumo and legionella urinary antigens were negative. Pulmonology consulted. Currently on vancomycin. (5) Septic embolism Current Visit: Yes Status: Acute CT of the chest showed superimposed scattered peripheral nodular opacities, many of which demonstrate cavitation most compatible with septic emboli. Likely secondary to bacteremia and endocarditis. Currently on vancomycin. (6) Transaminitis Current Visit: Yes Status: Acute Likely secondary to sepsis. The patient is hep C positive. Improved. Abdominal exam benign. Recommended GI follow-up as an outpatient. (7) Hyponatremia Current Visit: Yes Status: Resolved (8) Tobacco dependence Current Visit: No Status: Chronic (9) IV drug abuse Current Visit: Yes Status: Chronic States last IV drug use was 6 months ago, but she does report smoking methamphetamine 2 weeks ago. HIV is negative. Hepatitis C antibody is positive. (10) Hepatitis C Current Visit: Yes Status: Chronic Recommend referral to GI as an outpatient. Qualifiers: Viral hepatitis chronicity: chronic Hepatic coma status: without hepatic coma Qualified Code(s): B18.2 - Chronic viral hepatitis C - Subjective Interval history: Patient seen and examined. Appears comfortable. Laying in bed. No acute distress. Denies any headache, denies any visual changes, denies any hemoptysis. She does have chest pain and cough still nonproductive. Denies any abdominal pain no nausea no vomiting no urinary symptoms no diarrhea. No back pain no joint effusion. Infect Dis PN-Objective Data - Labs CBC & Chem 7: 04/16/18 09:26 04/16/18 09:26 Labs: Laboratory Results - last 24 hr 04/16/18 16:49 Vancomycin Trough 18 H Cultures: Cultures 04/11/18 11:01 Blood Culture - Final Peripheral Venipuncture No growth. Final report. 04/10/18 07:46 Blood Culture - Final Peripheral Venipuncture Methicillin Resistant S.aureus Streptococcus mitis/S.oralis 04/11/18 11:01 Blood Culture - Final Peripheral Venipuncture Methicillin Resistant S.aureus 04/13/18 16:22 Blood Culture - Preliminary Peripheral Venipuncture Culture is incubating and being continuously monitored for growth. Final report to follow. 04/13/18 12:52 Blood Culture - Preliminary Peripheral Venipuncture Culture is incubating and being continuously monitored for growth. Final report to follow. 04/10/18 08:44 Blood Culture - Final Peripheral Venipuncture Methicillin Resistant S.aureus Streptococcus mitis/S.oralis 04/10/18 06:47 Blood Culture - Final Peripheral Venipuncture Methicillin Resistant S.aureus Streptococcus mitis/S.oralis 04/11/18 04:40 Legionella Antigen - Final Urine,Clean Catch Streptococcus pneumoniae Antigen (M - Final Serology 04/11/18 04/10/18 04/10/18 Range/Units 11:01 14:37 14:37 Urine Color (Yellow) Urine Clarity (Clear) Urine pH (5.0-8.0) pH Units Ur Specific [place] (1.010-1.025) Urine Protein (Neg-Trace) mg/dL Urine Glucose (UA) (Normal) mg/dL Urine Ketones (Negative) mg/dL Urine Blood (Negative) Urine Nitrite (Negative) Urine Bilirubin (Negative) Urine Urobilinogen (Normal) mg/dL Ur Leukocyte Esterase (Negative) Urine Microscopic RBC (0-3) per hpf Urine Microscopic WBC (0-3) per hpf Ur Squamous Epith Cells (None-Few) per lpf Urine Bacteria (None-Few) per hpf Hyaline Casts (None-Few) per lpf Ur Culture Indicated? (NO) Urine Test (Negative) Nasal Screen MRSA (PCR) Positive A (Negative) A. baumannii (PCR) Not Detected (Not Detect) Chlamy pneumoniae PCR Not Detected (Not Detect) Adenovirus (PCR) Not Detected (Not Detect) B. pertussis DNA (PCR) Not Detected (Not Detect) B.parapertussis DNA PCR Not Detected (Not Detect) Enedina albicans (PCR) Not Detected (Not Detect) C. glabrata (PCR) Not Detected (Not Detect) C. krusei (PCR) Not Detected (Not Detect) C. parapsilosis (PCR) Not Detected (Not Detect) C. tropicalis (PCR) Not Detected (Not Detect) Coronavirus OC43 (PCR) Not Detected (Not Detect) Coronavirus HKU1 (PCR) Not Detected (Not Detect) Coronavirus 229E (PCR) Not Detected (Not Detect) Coronavirus NL63 (PCR) Not Detected (Not Detect) Enterobacteriac sp PCR Not Detected (Not Detect) E. cloacae complex PCR Not Detected (Not Detect) Enterococcus sp PCR Not Detected (Not Detect) E. coli (PCR) Not Detected (Not Detect) H. influenzae (PCR) Not Detected (Not Detect) Hepatitis A IgM Ab (Nonreactive) Hep Bs Antigen (Nonreactive) Hep B Core IgM Ab (Nonreactive) Hepatitis C Ab Screen (Nonreactive) HIV Ag/Ab Combo Qual (Nonreactive) Human Metapneumovir PCR Not Detected (Not Detect) Influenza A (H1) PCR Not Detected (Not Detect) Influ A (H1N1/09) PCR Not Detected (Not Detect) Influenza A (H3) PCR Not Detected (Not Detect) Influenza A Untype (PCR) Not Detected (Not Detect) Influenza Type B (PCR) Not Detected (Not Detect) Klebsiella oxytoca PCR Not Detected (Not Detect) Klebsiella pneumoniae Not Detected (Not Detect) List. monocytogenes PCR Not Detected (Not Detect) M.pneumoniae DNA (PCR) Not Detected (Not Detect) N. meningitidis (PCR) Not Detected (Not Detect) Parainfluenza 1 (PCR) Not Detected (Not Detect) Parainfluenza 2 (PCR) Not Detected (Not Detect) Parainfluenza 3 (PCR) Not Detected (Not Detect) Parainfluenza 4 (PCR) Not Detected (Not Detect) Proteus species (PCR) Not Detected (Not Detect) RSV (PCR) Not Detected (Not Detect) Entero/Rhino (PCR) Not Detected (Not Detect) Serratia marcescens PCR Not Detected (Not Detect) Staphylococcus sp PCR DETECTED A (Not Detect) Staph aureus (PCR) DETECTED A (Not Detect) mecA-Methicil Res Gene DETECTED A (Not Detect) Streptococcus sp PCR Not Detected (Not Detect) Group A Strep DNA Not Detected (Not Detect) Group B Strep (PCR) Not Detected (Not Detect) Strep pneumoniae (PCR) Not Detected (Not Detect) P. aeruginosa (PCR) Not Detected (Not Detect) Carina/B-Vanco Res Genes Not Detected (Not Detect) KPC (blaKPC) Detect PCR Not Detected (Not Detect) 04/10/18 04/10/18 04/10/18 Range/Units 08:44 07:13 07:13 Urine Color Dark Yellow (Yellow) Urine Clarity Cloudy A (Clear) Urine pH 6.0 (5.0-8.0) pH Units Ur Specific [place] 1.017 (1.010-1.025) Urine Protein 100 H (Neg-Trace) mg/dL Urine Glucose (UA) Normal (Normal) mg/dL Urine Ketones Negative (Negative) mg/dL Urine Blood Moderate H (Negative) Urine Nitrite Positive A (Negative) Urine Bilirubin Small H (Negative) Urine Urobilinogen 4.0 H (Normal) mg/dL Ur Leukocyte Esterase Small H (Negative) Urine Microscopic RBC 0-3 (0-3) per hpf Urine Microscopic WBC 5-15 H (0-3) per hpf Ur Squamous Epith Cells Many H (None-Few) per lpf Urine Bacteria Many H (None-Few) per hpf Hyaline Casts None Seen (None-Few) per lpf Ur Culture Indicated? NO. A (NO) Urine Test Negative (Negative) Nasal Screen MRSA (PCR) (Negative) A. baumannii (PCR) Not Detected (Not Detect) Chlamy pneumoniae PCR (Not Detect) Adenovirus (PCR) (Not Detect) B. pertussis DNA (PCR) (Not Detect) B.parapertussis DNA PCR (Not Detect) Enedina albicans (PCR) Not Detected (Not Detect) C. glabrata (PCR) Not Detected (Not Detect) C. krusei (PCR) Not Detected (Not Detect) C. parapsilosis (PCR) Not Detected (Not Detect) C. tropicalis (PCR) Not Detected (Not Detect) Coronavirus OC43 (PCR) (Not Detect) Coronavirus HKU1 (PCR) (Not Detect) Coronavirus 229E (PCR) (Not Detect) Coronavirus NL63 (PCR) (Not Detect) Enterobacteriac sp PCR Not Detected (Not Detect) E. cloacae complex PCR Not Detected (Not Detect) Enterococcus sp PCR Not Detected (Not Detect) E. coli (PCR) Not Detected (Not Detect) H. influenzae (PCR) Not Detected (Not Detect) Hepatitis A IgM Ab (Nonreactive) Hep Bs Antigen (Nonreactive) Hep B Core IgM Ab (Nonreactive) Hepatitis C Ab Screen (Nonreactive) HIV Ag/Ab Combo Qual (Nonreactive) Human Metapneumovir PCR (Not Detect) Influenza A (H1) PCR (Not Detect) Influ A (H1N1/09) PCR (Not Detect) Influenza A (H3) PCR (Not Detect) Influenza A Untype (PCR) (Not Detect) Influenza Type B (PCR) (Not Detect) Klebsiella oxytoca PCR Not Detected (Not Detect) Klebsiella pneumoniae Not Detected (Not Detect) List. monocytogenes PCR Not Detected (Not Detect) M.pneumoniae DNA (PCR) (Not Detect) N. meningitidis (PCR) Not Detected (Not Detect) Parainfluenza 1 (PCR) (Not Detect) Parainfluenza 2 (PCR) (Not Detect) Parainfluenza 3 (PCR) (Not Detect) Parainfluenza 4 (PCR) (Not Detect) Proteus species (PCR) Not Detected (Not Detect) RSV (PCR) (Not Detect) Entero/Rhino (PCR) (Not Detect) Serratia marcescens PCR Not Detected (Not Detect) Staphylococcus sp PCR DETECTED A (Not Detect) Staph aureus (PCR) DETECTED A (Not Detect) mecA-Methicil Res Gene DETECTED A (Not Detect) Streptococcus sp PCR Not Detected (Not Detect) Group A Strep DNA Not Detected (Not Detect) Group B Strep (PCR) Not Detected (Not Detect) Strep pneumoniae (PCR) Not Detected (Not Detect) P. aeruginosa (PCR) Not Detected (Not Detect) Carina/B-Vanco Res Genes N/A (Not Detect) KPC (blaKPC) Detect PCR N/A (Not Detect) 04/10/18 Range/Units 06:40 Urine Color (Yellow) Urine Clarity (Clear) Urine pH (5.0-8.0) pH Units Ur Specific [place] (1.010-1.025) Urine Protein (Neg-Trace) mg/dL Urine Glucose (UA) (Normal) mg/dL Urine Ketones (Negative) mg/dL Urine Blood (Negative) Urine Nitrite (Negative) Urine Bilirubin (Negative) Urine Urobilinogen (Normal) mg/dL Ur Leukocyte Esterase (Negative) Urine Microscopic RBC (0-3) per hpf Urine Microscopic WBC (0-3) per hpf Ur Squamous Epith Cells (None-Few) per lpf Urine Bacteria (None-Few) per hpf Hyaline Casts (None-Few) per lpf Ur Culture Indicated? (NO) Urine Test (Negative) Nasal Screen MRSA (PCR) (Negative) A. baumannii (PCR) (Not Detect) Chlamy pneumoniae PCR (Not Detect) Adenovirus (PCR) (Not Detect) B. pertussis DNA (PCR) (Not Detect) B.parapertussis DNA PCR (Not Detect) Enedina albicans (PCR) (Not Detect) C. glabrata (PCR) (Not Detect) C. krusei (PCR) (Not Detect) C. parapsilosis (PCR) (Not Detect) C. tropicalis (PCR) (Not Detect) Coronavirus OC43 (PCR) (Not Detect) Coronavirus HKU1 (PCR) (Not Detect) Coronavirus 229E (PCR) (Not Detect) Coronavirus NL63 (PCR) (Not Detect) Enterobacteriac sp PCR (Not Detect) E. cloacae complex PCR (Not Detect) Enterococcus sp PCR (Not Detect) E. coli (PCR) (Not Detect) H. influenzae (PCR) (Not Detect) Hepatitis A IgM Ab Nonreactive (Nonreactive) Hep Bs Antigen Nonreactive (Nonreactive) Hep B Core IgM Ab Nonreactive (Nonreactive) Hepatitis C Ab Screen Reactive H (Nonreactive) HIV Ag/Ab Combo Qual Nonreactive (Nonreactive) Human Metapneumovir PCR (Not Detect) Influenza A (H1) PCR (Not Detect) Influ A (H1N1/09) PCR (Not Detect) Influenza A (H3) PCR (Not Detect) Influenza A Untype (PCR) (Not Detect) Influenza Type B (PCR) (Not Detect) Klebsiella oxytoca PCR (Not Detect) Klebsiella pneumoniae (Not Detect) List. monocytogenes PCR (Not Detect) M.pneumoniae DNA (PCR) (Not Detect) N. meningitidis (PCR) (Not Detect) Parainfluenza 1 (PCR) (Not Detect) Parainfluenza 2 (PCR) (Not Detect) Parainfluenza 3 (PCR) (Not Detect) Parainfluenza 4 (PCR) (Not Detect) Proteus species (PCR) (Not Detect) RSV (PCR) (Not Detect) Entero/Rhino (PCR) (Not Detect) Serratia marcescens PCR (Not Detect) Staphylococcus sp PCR (Not Detect) Staph aureus (PCR) (Not Detect) mecA-Methicil Res Gene (Not Detect) Streptococcus sp PCR (Not Detect) Group A Strep DNA (Not Detect) Group B Strep (PCR) (Not Detect) Strep pneumoniae (PCR) (Not Detect) P. aeruginosa (PCR) (Not Detect) Carina/B-Vanco Res Genes (Not Detect) KPC (blaKPC) Detect PCR (Not Detect) Exam - Constitutional Vitals: Temp Pulse Resp BP Pulse Ox 98.2 F 101 32 146/88 95 04/17/18 13:38 04/17/18 13:38 02/08/19 13:38 04/17/18 13:38 04/17/18 13:38 General appearance: cooperative, no febrile - Head Head exam: Present: atraumatic, normocephalic - Respiratory Respiratory exam: Present: CTAB. Absent: rhonchi, wheezes - Cardiovascular Cardiovascular exam: Present: RRR, +S1, +S2. Absent: diastolic murmur, systolic murmur - GI/Abdominal GI/Abdominal exam: Present: normal bowel sounds, soft. Absent: tenderness - Extremities Exam Extremities exam: Present: full ROM, normal inspection. Absent: joint swelling - Back Exam Back exam: Absent: vertebral tenderness - Neurological Exam Neurological exam: Present: alert, oriented X3 - Psychiatric Psychiatric exam: Present: normal affect, normal mood Consult Discharge Plan - Plan Additional Instructions: Please follow-up with your primary care provider within one week Please follow-up with scheduled. Please complete your IV antibiotics. Referrals: Selena Burks [employer]ERSON[employer] INJURY SPECIALIST [Advanced Practice Nurse] - 04/30/18 2:05 pm NONE,PCP [Primary Care Provider] - (1 week) Prescriptions: OxyCODONE/APAP 5/325 [Percocet 5/325 MG] 1 each PO Q6HR PRN 3 Days #10 tablet PRN Reason: severe pain Vancomycin HCl in 5 % Dextrose [Vancomycin 1.75 Gram/[id number]] 1.75 gm IV Q12H #1 plast..bag
== END 2018-04-17 19:23 | DRG 720 ==
LOC: EMEROOARM 06:08 → SUATTDRO 13:19 → 2NENU 13:19
PROVIDERS: ADMIT Student in an Organized Health Care Education/Training Program; ATTEND Internal Medicine

== ENCOUNTER 2020-02-24 14:44 | Inpatient (IN) ==
[2020-02-24] MEDS ORDERED: Isovue-370 500 ML BOTTLE IVP ONE (15:27)
[2020-02-24 16:11] LABS: Basophils % 0.3 %; Eosinophils # 0.1 K/mcL (0.0-0.6); Eosinophils % 1.1 %; Hematocrit 32.8 % (35.3-44.9); Hemoglobin 10.4 g/dL (11.5-15.4); Immature Granulocytes % 0.3 % (0-4); Lymphocytes # 1.9 K/mcL (0.6-4.6); Lymphocytes % 18.3 %; Mean Corpuscular HGB Conc 31.7 g/dL (31.6-35.5); Mean Corpuscular Hemoglobin 26.5 pg (28.0-33.3); Mean Corpuscular Volume 83.5 fL (83.0-100.0); Mean Platelet Volume 10.8 fL (9.4-12.4); Monocytes % 9.3 %; Neutrophils # 7.3 K/mcL (1.6-8.9); Platelet Count 282 K/mcL (140-400); Red Blood Count 3.93 M/mcL (3.82-4.97); Red Cell Distribution Width 14.6 % (11.5-14.5); Segmented Neutrophils % 70.7 %; White Blood Count 10.3 K/mcL (4.3-11.1)
[2020-02-24 16:31] LABS: BUN/Creatinine Ratio 9 (6-26); Blood Urea Nitrogen 6 mg/dL (6-20); C-Reactive Protein 100 mg/L (Less than 10); Calcium 9.1 mg/dL (8.6-10.3); Carbon Dioxide 28 mEq/L (23-29); Chloride 100 mEq/L (98-107); Glucose 99 mg/dL (70-105); Osmolality,Calculated 276 (280-300); Potassium 3.2 mEq/L (3.5-5.1); Sodium 134 mEq/L (136-145); eGFR For African Americans > 60 (> 60); eGFR For Non-African Americans > 60 (> 60)
[2020-02-24] MEDS ORDERED: Vancomycin 1,250 MG/262.5 ML IV.SOLN IVPB ONE (17:59)
[2020-02-24] MEDS ORDERED: Piperacillin/Tazobactam 3.375 GM in 0.9 % Sodium Chloride Mini Bag 100 ML IVPB ONE (17:59)
[2020-02-24] MEDS ORDERED: Ketorolac 15 MG/ML VIAL IVP ONE (19:05)
[2020-02-24] MEDS: 0.9 % Sodium Chloride 1,000 ML IVC SCH ×2 (19:07→20:02)
[2020-02-24] MEDS ORDERED: Ondansetron ODT 4 MG TAB.RAPDIS SL PRN (20:05)
[2020-02-24] MEDS ORDERED: Naloxone 0.4 MG/ML INJ IVP PRN (20:05)
[2020-02-24] MEDS ORDERED: *HR* Heparin 5,000 UNIT/ML VIAL IVP ONE (21:14)
[2020-02-24] MEDS ORDERED: *HR* Heparin 5,000 UNIT/ML VIAL IVP PRN (21:14)
[2020-02-24 22:15] LABS: Hematocrit 34.2 % (35.3-44.9); Hemoglobin 10.4 g/dL (11.5-15.4); Mean Corpuscular HGB Conc 30.4 g/dL (31.6-35.5); Mean Corpuscular Hemoglobin 26.2 pg (28.0-33.3); Mean Corpuscular Volume 86.1 fL (83.0-100.0); Mean Platelet Volume 10.8 fL (9.4-12.4); Platelet Count 256 K/mcL (140-400); Red Blood Count 3.97 M/mcL (3.82-4.97); Red Cell Distribution Width 14.5 % (11.5-14.5); White Blood Count 10.7 K/mcL (4.3-11.1)
[2020-02-24 22:27] LABS: Heparin anti-factor XA UFH < 0.04 IU/mL (0.30-0.70)
[2020-02-24 22:28] LABS: INR 1.3; Prothrombin Time 15.1 Seconds (9.4-12.1)
[2020-02-24] MEDS: Heparin 25,000UNIT/250ML 1/2NS 25,000 UNIT/250 ML IV.SOLN IVC SCH (22:34)
[2020-02-24] MEDS: Acetaminophen 325 MG TABLET PO PRN (23:49)
[2020-02-25] MEDS ORDERED: Ketorolac 30 MG/ML VIAL IVP ONE (01:02)
[2020-02-25 01:31] LABS: Basophils % 0.4 %; Eosinophils # 0.1 K/mcL (0.0-0.6); Hematocrit 31.2 % (35.3-44.9); Hemoglobin 9.6 g/dL (11.5-15.4); Immature Granulocytes % 0.4 % (0-4); Lymphocytes # 1.5 K/mcL (0.6-4.6); Lymphocytes % 13.2 %; Mean Corpuscular HGB Conc 30.8 g/dL (31.6-35.5); Mean Corpuscular Hemoglobin 25.9 pg (28.0-33.3); Mean Corpuscular Volume 84.1 fL (83.0-100.0); Mean Platelet Volume 11.4 fL (9.4-12.4); Monocytes # 0.9 K/mcL (0.0-1.3); Monocytes % 8.4 %; Neutrophils # 8.6 K/mcL (1.6-8.9); Platelet Count 296 K/mcL (140-400); Red Blood Count 3.71 M/mcL (3.82-4.97); Red Cell Distribution Width 14.5 % (11.5-14.5); Segmented Neutrophils % 76.6 %; White Blood Count 11.2 K/mcL (4.3-11.1)
[2020-02-25 01:32] LABS: INR 1.5; Prothrombin Time 16.9 Seconds (9.4-12.1)
[2020-02-25 04:33] LABS: Alanine Aminotransferase 10 Units/L (7-52); Albumin 3.1 g/dL (3.5-5.7); Albumin/Globulin Ratio 1.1 (1.1-2.2); Alkaline Phosphatase 55 Units/L (34-104); Aspartate Amino Transferase 12 Units/L (13-39); BUN/Creatinine Ratio 9 (6-26); Bilirubin,Total 0.6 mg/dL (0.3-1.0); Blood Urea Nitrogen 6 mg/dL (6-20); C-Reactive Protein 118 mg/L (Less than 10); Calcium 8.6 mg/dL (8.6-10.3); Carbon Dioxide 22 mEq/L (23-29); Chloride 107 mEq/L (98-107); Globulin 2.8 g/dL (2.4-3.5); Glucose 145 mg/dL (70-105); Magnesium 1.6 mg/dL (1.6-2.6); Osmolality,Calculated 280 (280-300); Phosphorous 1.1 mg/dL (2.7-4.5); Potassium 3.9 mEq/L (3.5-5.1); Sodium 135 mEq/L (136-145); Total Protein 5.9 g/dL (6.4-8.9); eGFR For African Americans > 60 (> 60); eGFR For Non-African Americans > 60 (> 60)
[2020-02-25] MEDS: Piperacillin/Tazobactam 3.375 GM in 0.9 % Sodium Chloride Mini Bag 100 ML IVPB SCH ×3 (08:51→23:12)
[2020-02-25] MEDS ORDERED: hydrOXYzine pamoate 25 MG CAPSULE PO PRN (09:23)
[2020-02-25] MEDS ORDERED: Isovue-370 500 ML BOTTLE IVP ONE (13:06)
[2020-02-25] MEDS ORDERED: Perflutren Lipid Microsphere 1.3 ML in 0.9 % Sodium Chloride 8.7 ML IVP PRN (13:39)
[2020-02-25] MEDS: Pantoprazole 40 MG VIAL IVP SCH (14:57)
[2020-02-25] MEDS: 0.9 % Sodium Chloride 1,000 ML IVC SCH (14:57)
[2020-02-25] MEDS: Acetaminophen 325 MG TABLET PO PRN (14:58)
[2020-02-25] MEDS: Heparin 25,000UNIT/250ML 1/2NS 25,000 UNIT/250 ML IV.SOLN IVC SCH (20:55)
[2020-02-26 00:46] LABS: BUN/Creatinine Ratio 15 (6-26); Basophils # 0.1 K/mcL (0.0-0.2); Basophils % 0.7 %; Blood Urea Nitrogen 9 mg/dL (6-20); Calcium 8.4 mg/dL (8.6-10.3); Carbon Dioxide 22 mEq/L (23-29); Chloride 109 mEq/L (98-107); Eosinophils # 0.5 K/mcL (0.0-0.6); Eosinophils % 4.9 %; Glucose 101 mg/dL (70-105); Hematocrit 31.9 % (35.3-44.9); Hemoglobin 9.6 g/dL (11.5-15.4); Immature Granulocytes % 0.3 % (0-4); Lymphocytes # 1.8 K/mcL (0.6-4.6); Magnesium 1.8 mg/dL (1.6-2.6); Mean Corpuscular HGB Conc 30.1 g/dL (31.6-35.5); Mean Corpuscular Hemoglobin 25.9 pg (28.0-33.3); Mean Corpuscular Volume 86.2 fL (83.0-100.0); Mean Platelet Volume 11.4 fL (9.4-12.4); Monocytes # 0.7 K/mcL (0.0-1.3); Monocytes % 7.2 %; Neutrophils # 6.2 K/mcL (1.6-8.9); Osmolality,Calculated 285 (280-300); Phosphorous 2.6 mg/dL (2.7-4.5); Platelet Count 274 K/mcL (140-400); Potassium 3.4 mEq/L (3.5-5.1); Red Cell Distribution Width 14.8 % (11.5-14.5); Segmented Neutrophils % 67.9 %; Sodium 138 mEq/L (136-145); White Blood Count 9.2 K/mcL (4.3-11.1); eGFR For African Americans > 60 (> 60); eGFR For Non-African Americans > 60 (> 60)
[2020-02-26] MEDS: Ketorolac 30 MG/ML VIAL IVP PRN ×3 (03:51→19:35)
[2020-02-26] MEDS: 0.9 % Sodium Chloride 1,000 ML IVC SCH ×2 (03:52→23:47)
[2020-02-26] MEDS: Pantoprazole 40 MG VIAL IVP SCH (08:18)
[2020-02-26] MEDS: Piperacillin/Tazobactam 3.375 GM in 0.9 % Sodium Chloride Mini Bag 100 ML IVPB SCH ×3 (08:19→23:49)
[2020-02-26] MEDS: Heparin 25,000UNIT/250ML 1/2NS 25,000 UNIT/250 ML IV.SOLN IVC SCH (13:35)
[2020-02-26] MEDS: *HR* Heparin 5,000 UNIT/ML VIAL IVP PRN (15:48)
[2020-02-27] MEDS: Heparin 25,000UNIT/250ML 1/2NS 25,000 UNIT/250 ML IV.SOLN IVC SCH ×2 (03:40→19:21)
[2020-02-27] MEDS: Ketorolac 30 MG/ML VIAL IVP PRN ×2 (04:03→16:43)
[2020-02-27 05:01] LABS: Basophils # 0.1 K/mcL (0.0-0.2); Basophils % 0.9 %; Eosinophils # 0.4 K/mcL (0.0-0.6); Eosinophils % 4.8 %; Hematocrit 27.9 % (35.3-44.9); Hemoglobin 8.7 g/dL (11.5-15.4); Immature Granulocytes % 0.2 % (0-4); Lymphocytes # 1.9 K/mcL (0.6-4.6); Lymphocytes % 23.6 %; Mean Corpuscular HGB Conc 31.2 g/dL (31.6-35.5); Mean Corpuscular Hemoglobin 26.5 pg (28.0-33.3); Mean Corpuscular Volume 85.1 fL (83.0-100.0); Mean Platelet Volume 11.1 fL (9.4-12.4); Monocytes # 0.6 K/mcL (0.0-1.3); Neutrophils # 5.2 K/mcL (1.6-8.9); Platelet Count 313 K/mcL (140-400); Red Blood Count 3.28 M/mcL (3.82-4.97); Red Cell Distribution Width 14.9 % (11.5-14.5); Segmented Neutrophils % 63.5 %; White Blood Count 8.1 K/mcL (4.3-11.1)
[2020-02-27 05:13] LABS: BUN/Creatinine Ratio 11 (6-26); Blood Urea Nitrogen 6 mg/dL (6-20); Calcium 8.1 mg/dL (8.6-10.3); Carbon Dioxide 20 mEq/L (23-29); Chloride 110 mEq/L (98-107); Glucose 110 mg/dL (70-105); Osmolality,Calculated 284 (280-300); Phosphorous 2.4 mg/dL (2.7-4.5); Potassium 3.4 mEq/L (3.5-5.1); Sodium 138 mEq/L (136-145); eGFR For African Americans > 60 (> 60); eGFR For Non-African Americans > 60 (> 60)
[2020-02-27] MEDS: Piperacillin/Tazobactam 3.375 GM in 0.9 % Sodium Chloride Mini Bag 100 ML IVPB SCH ×2 (08:48→16:15)
[2020-02-27] MEDS: Pantoprazole 40 MG VIAL IVP SCH (08:50)
[2020-02-27] MEDS: *HR* Buprenorphine HCl 8 MG TAB.SUBL SL SCH (08:52)
[2020-02-27 18:15] LABS: Hematocrit 30.3 % (35.3-44.9); Hemoglobin 9.1 g/dL (11.5-15.4)
[2020-02-28] MEDS: Piperacillin/Tazobactam 3.375 GM in 0.9 % Sodium Chloride Mini Bag 100 ML IVPB SCH ×3 (00:17→16:48)
[2020-02-28] MEDS: Ketorolac 30 MG/ML VIAL IVP PRN ×2 (01:21→16:47)
[2020-02-28 04:44] LABS: Basophils # 0.1 K/mcL (0.0-0.2); Basophils % 0.8 %; Eosinophils # 0.4 K/mcL (0.0-0.6); Hematocrit 28.3 % (35.3-44.9); Hemoglobin 8.6 g/dL (11.5-15.4); Immature Granulocytes % 0.3 % (0-4); Lymphocytes # 1.9 K/mcL (0.6-4.6); Lymphocytes % 29.4 %; Mean Corpuscular HGB Conc 30.4 g/dL (31.6-35.5); Mean Corpuscular Hemoglobin 25.9 pg (28.0-33.3); Mean Corpuscular Volume 85.2 fL (83.0-100.0); Mean Platelet Volume 10.3 fL (9.4-12.4); Monocytes # 0.5 K/mcL (0.0-1.3); Monocytes % 7.1 %; Neutrophils # 3.5 K/mcL (1.6-8.9); Platelet Count 322 K/mcL (140-400); Red Blood Count 3.32 M/mcL (3.82-4.97); Red Cell Distribution Width 15.2 % (11.5-14.5); Segmented Neutrophils % 55.4 %; White Blood Count 6.3 K/mcL (4.3-11.1)
[2020-02-28 05:06] LABS: BUN/Creatinine Ratio 9 (6-26); Blood Urea Nitrogen 6 mg/dL (6-20); Calcium 8.3 mg/dL (8.6-10.3); Carbon Dioxide 23 mEq/L (23-29); Chloride 110 mEq/L (98-107); Glucose 99 mg/dL (70-105); Osmolality,Calculated 286 (280-300); Potassium 3.8 mEq/L (3.5-5.1); Sodium 139 mEq/L (136-145); eGFR For African Americans > 60 (> 60); eGFR For Non-African Americans > 60 (> 60)
[2020-02-28] MEDS: *HR* Buprenorphine HCl 8 MG TAB.SUBL SL SCH (09:26)
[2020-02-28] MEDS: Pantoprazole 40 MG VIAL IVP SCH (09:26)
[2020-02-28 10:26] LABS: Vancomycin,Trough 14 mcg/mL (5-10)
[2020-02-28 11:35] LABS: % Iron Saturation 4 % (15-50); Iron 14 mcg/dL (50-170); Transferrin 253 mg/dL (203-362)
[2020-02-28 11:53] LABS: Ferritin 42 ng/mL (10-120)
[2020-02-28] MEDS: Heparin 25,000UNIT/250ML 1/2NS 25,000 UNIT/250 ML IV.SOLN IVC SCH (13:24)
[2020-02-28 18:24] LABS: Hematocrit 28.4 % (35.3-44.9); Hemoglobin 8.7 g/dL (11.5-15.4)
[2020-02-29] MEDS: Piperacillin/Tazobactam 3.375 GM in 0.9 % Sodium Chloride Mini Bag 100 ML IVPB SCH ×3 (00:20→16:30)
[2020-02-29] MEDS: Ketorolac 30 MG/ML VIAL IVP PRN ×2 (00:22→21:44)
[2020-02-29 00:50] LABS: Basophils # 0.1 K/mcL (0.0-0.2); Basophils % 1.6 %; Eosinophils # 0.4 K/mcL (0.0-0.6); Eosinophils % 8.3 %; Hematocrit 29.4 % (35.3-44.9); Immature Granulocytes % 0.2 % (0-4); Lymphocytes # 1.9 K/mcL (0.6-4.6); Lymphocytes % 37.4 %; Mean Corpuscular HGB Conc 30.6 g/dL (31.6-35.5); Mean Corpuscular Hemoglobin 26.3 pg (28.0-33.3); Mean Platelet Volume 10.2 fL (9.4-12.4); Monocytes # 0.4 K/mcL (0.0-1.3); Monocytes % 7.8 %; Platelet Count 362 K/mcL (140-400); Red Blood Count 3.42 M/mcL (3.82-4.97); Red Cell Distribution Width 15.1 % (11.5-14.5); Segmented Neutrophils % 44.7 %
[2020-02-29 00:57] LABS: Neutrophils # 2.2 K/mcL (1.6-8.9)
[2020-02-29 01:14] LABS: BUN/Creatinine Ratio 8 (6-26); Blood Urea Nitrogen 6 mg/dL (6-20); Calcium 8.8 mg/dL (8.6-10.3); Carbon Dioxide 25 mEq/L (23-29); Chloride 108 mEq/L (98-107); Glucose 106 mg/dL (70-105); Osmolality,Calculated 286 (280-300); Phosphorous 3.9 mg/dL (2.7-4.5); Potassium 3.7 mEq/L (3.5-5.1); Sodium 139 mEq/L (136-145); eGFR For African Americans > 60 (> 60); eGFR For Non-African Americans > 60 (> 60)
[2020-02-29 01:25] LABS: Platelet Estimate Normal (Normal); Reactive Lymphocytes Present (Not Present)
[2020-02-29] MEDS: 0.9 % Sodium Chloride 1,000 ML IVC SCH (04:53)
[2020-02-29] MEDS: Heparin 25,000UNIT/250ML 1/2NS 25,000 UNIT/250 ML IV.SOLN IVC SCH ×2 (06:40→23:39)
[2020-02-29] MEDS: *HR* Buprenorphine HCl 8 MG TAB.SUBL SL SCH (08:33)
[2020-02-29] MEDS: Pantoprazole 40 MG VIAL IVP SCH (08:33)
[2020-02-29] MEDS: Acetaminophen 325 MG TABLET PO PRN (16:33)
[2020-03-01] MEDS: Piperacillin/Tazobactam 3.375 GM in 0.9 % Sodium Chloride Mini Bag 100 ML IVPB SCH ×2 (00:24→07:53)
[2020-03-01] MEDS: *HR* Heparin 5,000 UNIT/ML VIAL IVP PRN ×2 (01:33→16:08)
[2020-03-01] MEDS: *HR* Buprenorphine HCl 8 MG TAB.SUBL SL SCH (07:51)
[2020-03-01] MEDS: Pantoprazole 40 MG VIAL IVP SCH (07:52)
[2020-03-01] MEDS: Heparin 25,000UNIT/250ML 1/2NS 25,000 UNIT/250 ML IV.SOLN IVC SCH (13:49)
[2020-03-01] MEDS: Acetaminophen 325 MG TABLET PO PRN (15:29)
[2020-03-02] MEDS: Heparin 25,000UNIT/250ML 1/2NS 25,000 UNIT/250 ML IV.SOLN IVC SCH (02:13)
[2020-03-02 05:56] LABS: Hematocrit 32.3 % (35.3-44.9); Hemoglobin 9.6 g/dL (11.5-15.4); Mean Corpuscular HGB Conc 29.7 g/dL (31.6-35.5); Mean Corpuscular Hemoglobin 25.3 pg (28.0-33.3); Mean Platelet Volume 9.7 fL (9.4-12.4); Platelet Count 434 K/mcL (140-400); Red Cell Distribution Width 14.8 % (11.5-14.5); White Blood Count 5.7 K/mcL (4.3-11.1)
[2020-03-02 06:16] LABS: BUN/Creatinine Ratio 15 (6-26); Blood Urea Nitrogen 10 mg/dL (6-20); Calcium 9.4 mg/dL (8.6-10.3); Carbon Dioxide 30 mEq/L (23-29); Chloride 104 mEq/L (98-107); Glucose 97 mg/dL (70-105); Osmolality,Calculated 283 (280-300); Potassium 4.3 mEq/L (3.5-5.1); Sodium 137 mEq/L (136-145); eGFR For African Americans > 60 (> 60); eGFR For Non-African Americans > 60 (> 60)
[2020-03-02 07:07] VITALS: BP 127/81
[2020-03-02] MEDS ORDERED: Apixaban 5 MG TABLET PO SCH (09:00)
[2020-03-02] MEDS: *HR* Buprenorphine HCl 8 MG TAB.SUBL SL SCH (11:35)
== END 2020-03-02 11:43 | disposition home or self-care (01) | DRG 197 ==
LOC: EMEROOARM 14:44 → 3BNU 14:44 → SUATTDRO 19:27 → 3BNU 20:10
PROVIDERS: ADMIT Student in an Organized Health Care Education/Training Program; ATTEND Internal Medicine

== ENCOUNTER 2020-04-20 16:21 | Observation (INO) ==
[2020-04-20] MEDS ORDERED: Isovue-370 500 ML BOTTLE IVP ONE (17:22)
[2020-04-20 17:32] LABS: Basophils # 0.1 K/mcL (0.0-0.2); Basophils % 0.7 %; Eosinophils # 0.1 K/mcL (0.0-0.6); Eosinophils % 0.5 %; Hematocrit 40.6 % (35.3-44.9); Immature Granulocytes % 0.3 % (0-4); Lymphocytes # 1.9 K/mcL (0.6-4.6); Lymphocytes % 16.1 %; Mean Corpuscular HGB Conc 29.6 g/dL (31.6-35.5); Mean Corpuscular Hemoglobin 24.4 pg (28.0-33.3); Mean Corpuscular Volume 82.7 fL (83.0-100.0); Monocytes # 0.6 K/mcL (0.0-1.3); Monocytes % 4.9 %; Neutrophils # 9.3 K/mcL (1.6-8.9); Platelet Count 411 K/mcL (140-400); Red Blood Count 4.91 M/mcL (3.82-4.97); Red Cell Distribution Width 14.6 % (11.5-14.5); Segmented Neutrophils % 77.5 %
[2020-04-20 17:50] LABS: BUN/Creatinine Ratio 21 (6-26); Blood Urea Nitrogen 13 mg/dL (6-20); Calcium 10.1 mg/dL (8.6-10.3); Carbon Dioxide 24 mEq/L (23-29); Chloride 104 mEq/L (98-107); Glucose 88 mg/dL (70-105); Osmolality,Calculated 282 (280-300); Potassium 4.3 mEq/L (3.5-5.1); Sodium 136 mEq/L (136-145); Troponin I < 0.03 ng/mL (< 0.04); eGFR For African Americans > 60 (> 60); eGFR For Non-African Americans > 60 (> 60)
[2020-04-20 18:01] LABS: Amorphous Sediment,Urine Few per hpf (None-Few); Bacteria,Urine Few per hpf (None-Few); Bilirubin,Urine Negative (Negative); Blood,Urine Negative (Negative); Clarity,Urine Turbid (Clear); Color,Urine Light-Yellow (Yellow); Glucose,Urine (UA) Normal (Normal); Ketones,Urine Negative (Negative); Leukocyte Esterase,Urine Negative (Negative); Mucus,Urine Few per lpf (None-Few); Nitrite,Urine Negative (Negative); Protein,Urine Negative (Neg-Trace); RBC,Urine 0-3 per hpf (0-3); Specific Gravity,Urine 1.023 (1.010-1.025); Squamous Epithelial Cell,Urine Few per hpf (None-Few); Urobilinogen,Urine Normal (Normal)
[2020-04-20] MEDS ORDERED: Vancomycin 1,500 MG/265 ML IV.SOLN IVPB ONE (20:46)
[2020-04-20] MEDS ORDERED: Piperacillin/Tazobactam 3.375 GM in 0.9 % Sodium Chloride Mini Bag 100 ML IVPB ONE (20:47)
[2020-04-20] MEDS ORDERED: 0.9 % Sodium Chloride 1,000 ML IVC ONE (20:48)
[2020-04-20] MEDS ORDERED: Ketorolac 15 MG/ML VIAL IVP ONE (20:48)
[2020-04-20] MEDS ORDERED: Piperacillin/Tazobactam 3.375 GM VIAL ONE (20:53)
[2020-04-20] MEDS ORDERED: Ketorolac 15 MG/ML VIAL IVP PRN (21:39)
[2020-04-20] MEDS ORDERED: Vancomycin (wt based) 1,000 MG VIAL IVPB SCH (22:00)
[2020-04-20] MEDS ORDERED: *HR* Buprenorphine HCl 8 MG TAB.SUBL SL ONE (23:45)
[2020-04-21] MEDS ORDERED: hydrOXYzine pamoate 25 MG CAPSULE PO PRN (03:10)
[2020-04-21 04:14] LABS: Amphetamine Screen,Urine Positive ng/mL (Cutoff=1000); Barbiturate Screen,Urine Negative ng/mL (Cutoff=200); Benzodiazepines Screen,Urine Negative ng/mL (Cutoff=200); Cannabinoid Screen,Urine Positive ng/mL (Cutoff = 50); Cocaine Screen,Urine Negative ng/mL (Cutoff= 300); Opiate Screen,Urine Negative ng/mL (Cutoff=300); Phencyclidine Screen,Urine Negative ng/mL (Cutoff=25)
[2020-04-21] MEDS: Piperacillin/Tazobactam 3.375 GM in 0.9 % Sodium Chloride Mini Bag 100 ML IVPB SCH ×3 (04:49→20:14)
[2020-04-21] MEDS: Vancomycin 1,250 MG/262.5 ML IV.SOLN IVPB SCH ×3 (04:49→23:07)
[2020-04-21 08:46] LABS: Basophils # 0.1 K/mcL (0.0-0.2); Basophils % 0.9 %; Eosinophils # 0.2 K/mcL (0.0-0.6); Eosinophils % 1.7 %; Hematocrit 32.1 % (35.3-44.9); Immature Granulocytes % 0.7 % (0-4); Lymphocytes # 2.2 K/mcL (0.6-4.6); Lymphocytes % 19.7 %; Mean Corpuscular HGB Conc 31.2 g/dL (31.6-35.5); Mean Corpuscular Volume 80.3 fL (83.0-100.0); Monocytes # 0.9 K/mcL (0.0-1.3); Monocytes % 7.6 %; Neutrophils # 7.8 K/mcL (1.6-8.9); Platelet Count 281 K/mcL (140-400); Red Cell Distribution Width 14.8 % (11.5-14.5); Segmented Neutrophils % 69.4 %; White Blood Count 11.3 K/mcL (4.3-11.1)
[2020-04-21 08:49] LABS: BUN/Creatinine Ratio 17 (6-26); Blood Urea Nitrogen 11 mg/dL (6-20); Calcium 8.9 mg/dL (8.6-10.3); Carbon Dioxide 23 mEq/L (23-29); Chloride 107 mEq/L (98-107); Glucose 92 mg/dL (70-105); Osmolality,Calculated 281 (280-300); Potassium 4.3 mEq/L (3.5-5.1); Sodium 136 mEq/L (136-145); eGFR For African Americans > 60 (> 60); eGFR For Non-African Americans > 60 (> 60)
[2020-04-21] MEDS: Ipratropium/Albuterol Neb 3 ML IH SCH ×3 (11:40→20:56)
[2020-04-21] MEDS: predniSONE 20 MG TABLET PO SCH (11:53)
[2020-04-21] MEDS: Azithromycin 250 MG TABLET PO SCH (11:53)
[2020-04-21] MEDS: *HR* Heparin 5,000 UNIT/ML VIAL SQ SCH (17:31)
[2020-04-21] MEDS: Acetaminophen 325 MG TABLET PO PRN (20:14)
[2020-04-21] MEDS: buprenorphine HCL 2 MG, buprenorphine HCL 8 MG SL SCH (20:15)
[2020-04-21] MEDS: Budesonide/Formoterol 160/4.5 1 PUFF INH IH SCH (22:48)
[2020-04-21] MEDS: Vancomycin 1,500 MG/265 ML IV.SOLN IVPB SCH (22:59)
[2020-04-22] MEDS: Ipratropium/Albuterol Neb 3 ML IH SCH ×7 (00:44→23:57)
[2020-04-22 01:12] LABS: Basophils # 0.1 K/mcL (0.0-0.2); Basophils % 0.4 %; Eosinophils % 0.2 %; Hematocrit 31.7 % (35.3-44.9); Hemoglobin 9.7 g/dL (11.5-15.4); Immature Granulocytes % 0.4 % (0-4); Lymphocytes # 2.4 K/mcL (0.6-4.6); Lymphocytes % 21.3 %; Mean Corpuscular HGB Conc 30.6 g/dL (31.6-35.5); Mean Corpuscular Hemoglobin 24.6 pg (28.0-33.3); Mean Corpuscular Volume 80.3 fL (83.0-100.0); Mean Platelet Volume 12.1 fL (9.4-12.4); Monocytes # 0.7 K/mcL (0.0-1.3); Monocytes % 6.1 %; Platelet Count 258 K/mcL (140-400); Red Blood Count 3.95 M/mcL (3.82-4.97); Red Cell Distribution Width 15.1 % (11.5-14.5); Segmented Neutrophils % 71.6 %; White Blood Count 11.1 K/mcL (4.3-11.1)
[2020-04-22] MEDS: Piperacillin/Tazobactam 3.375 GM in 0.9 % Sodium Chloride Mini Bag 100 ML IVPB SCH ×3 (05:02→20:50)
[2020-04-22] MEDS: *HR* Heparin 5,000 UNIT/ML VIAL SQ SCH ×2 (05:03→16:19)
[2020-04-22] MEDS: Budesonide/Formoterol 160/4.5 1 PUFF INH IH SCH ×2 (08:00→20:09)
[2020-04-22] MEDS: predniSONE 20 MG TABLET PO SCH (08:27)
[2020-04-22] MEDS: Azithromycin 250 MG TABLET PO SCH (08:27)
[2020-04-22] MEDS: buprenorphine HCL 2 MG, buprenorphine HCL 8 MG SL SCH ×2 (08:27→20:50)
[2020-04-22] MEDS: Vancomycin 1,500 MG/265 ML IV.SOLN IVPB SCH ×2 (08:30→16:18)
[2020-04-22] MEDS: Acetaminophen 325 MG TABLET PO PRN (08:30)
[2020-04-23] MEDS: Vancomycin 1,250 MG/262.5 ML IV.SOLN IVPB SCH ×4 (00:05→22:47)
[2020-04-23 01:19] LABS: Basophils # 0.1 K/mcL (0.0-0.2); Basophils % 0.5 %; Hematocrit 32.9 % (35.3-44.9); Hemoglobin 10.1 g/dL (11.5-15.4); Immature Granulocytes % 0.3 % (0-4); Lymphocytes # 2.5 K/mcL (0.6-4.6); Mean Corpuscular HGB Conc 30.7 g/dL (31.6-35.5); Mean Corpuscular Hemoglobin 24.6 pg (28.0-33.3); Mean Platelet Volume 12.3 fL (9.4-12.4); Monocytes # 0.7 K/mcL (0.0-1.3); Monocytes % 5.2 %; Neutrophils # 9.3 K/mcL (1.6-8.9); Platelet Count 320 K/mcL (140-400); Red Blood Count 4.11 M/mcL (3.82-4.97); Red Cell Distribution Width 15.2 % (11.5-14.5); White Blood Count 12.6 K/mcL (4.3-11.1)
[2020-04-23 01:26] LABS: BUN/Creatinine Ratio 20 (6-26); Blood Urea Nitrogen 12 mg/dL (6-20); Calcium 9.5 mg/dL (8.6-10.3); Carbon Dioxide 23 mEq/L (23-29); Chloride 107 mEq/L (98-107); Glucose 117 mg/dL (70-105); Osmolality,Calculated 287 (280-300); Sodium 138 mEq/L (136-145); eGFR For African Americans > 60 (> 60); eGFR For Non-African Americans > 60 (> 60)
[2020-04-23] MEDS: Piperacillin/Tazobactam 3.375 GM in 0.9 % Sodium Chloride Mini Bag 100 ML IVPB SCH ×3 (02:57→19:54)
[2020-04-23] MEDS: *HR* Heparin 5,000 UNIT/ML VIAL SQ SCH ×2 (03:07→17:13)
[2020-04-23] MEDS: Ipratropium/Albuterol Neb 3 ML IH SCH ×6 (04:12→23:39)
[2020-04-23] MEDS: Budesonide/Formoterol 160/4.5 1 PUFF INH IH SCH ×2 (08:07→20:24)
[2020-04-23] MEDS: predniSONE 20 MG TABLET PO SCH (09:07)
[2020-04-23] MEDS: buprenorphine HCL 2 MG, buprenorphine HCL 8 MG SL SCH ×2 (09:07→19:54)
[2020-04-23] MEDS: Azithromycin 250 MG TABLET PO SCH (09:07)
[2020-04-24] MEDS: Ipratropium/Albuterol Neb 3 ML IH SCH ×3 (03:41→11:47)
[2020-04-24] MEDS: Piperacillin/Tazobactam 3.375 GM in 0.9 % Sodium Chloride Mini Bag 100 ML IVPB SCH ×3 (04:19→20:25)
[2020-04-24] MEDS: *HR* Heparin 5,000 UNIT/ML VIAL SQ SCH ×2 (04:20→17:24)
[2020-04-24 06:22] LABS: Basophils # 0.1 K/mcL (0.0-0.2); Basophils % 1.1 %; Eosinophils # 0.1 K/mcL (0.0-0.6); Eosinophils % 0.8 %; Hematocrit 32.7 % (35.3-44.9); Hemoglobin 9.9 g/dL (11.5-15.4); Immature Granulocytes % 0.3 % (0-4); Lymphocytes # 3.3 K/mcL (0.6-4.6); Lymphocytes % 31.6 %; Mean Corpuscular HGB Conc 30.3 g/dL (31.6-35.5); Mean Corpuscular Hemoglobin 24.5 pg (28.0-33.3); Mean Corpuscular Volume 80.9 fL (83.0-100.0); Mean Platelet Volume 10.6 fL (9.4-12.4); Monocytes # 0.6 K/mcL (0.0-1.3); Neutrophils # 6.3 K/mcL (1.6-8.9); Platelet Count 367 K/mcL (140-400); Red Blood Count 4.04 M/mcL (3.82-4.97); Red Cell Distribution Width 14.8 % (11.5-14.5); Segmented Neutrophils % 60.2 %; White Blood Count 10.5 K/mcL (4.3-11.1)
[2020-04-24] MEDS: Budesonide/Formoterol 160/4.5 1 PUFF INH IH SCH (07:28)
[2020-04-24] MEDS: predniSONE 20 MG TABLET PO SCH (08:07)
[2020-04-24] MEDS: buprenorphine HCL 2 MG, buprenorphine HCL 8 MG SL SCH ×2 (08:09→20:25)
[2020-04-24] MEDS: Azithromycin 250 MG TABLET PO SCH (08:10)
[2020-04-24] MEDS ORDERED: Ipratropium/Albuterol Neb 3 ML IH PRN (15:13)
[2020-04-25] MEDS: Piperacillin/Tazobactam 3.375 GM in 0.9 % Sodium Chloride Mini Bag 100 ML IVPB SCH (04:08)
[2020-04-25 07:11] LABS: Basophils # 0.1 K/mcL (0.0-0.2); Basophils % 1.3 %; Eosinophils # 0.2 K/mcL (0.0-0.6); Eosinophils % 2.1 %; Hematocrit 34.5 % (35.3-44.9); Hemoglobin 10.6 g/dL (11.5-15.4); Immature Granulocytes % 0.7 % (0-4); Lymphocytes # 3.2 K/mcL (0.6-4.6); Lymphocytes % 36.2 %; Mean Corpuscular HGB Conc 30.7 g/dL (31.6-35.5); Mean Corpuscular Hemoglobin 24.7 pg (28.0-33.3); Mean Corpuscular Volume 80.4 fL (83.0-100.0); Mean Platelet Volume 10.8 fL (9.4-12.4); Monocytes # 0.6 K/mcL (0.0-1.3); Monocytes % 6.2 %; Neutrophils # 4.8 K/mcL (1.6-8.9); Platelet Count 359 K/mcL (140-400); Red Blood Count 4.29 M/mcL (3.82-4.97); Segmented Neutrophils % 53.5 %; White Blood Count 8.9 K/mcL (4.3-11.1)
[2020-04-25 07:31] VITALS: BP 108/70
[2020-04-25] MEDS: *HR* Heparin 5,000 UNIT/ML VIAL SQ SCH (08:45)
[2020-04-25] MEDS: predniSONE 20 MG TABLET PO SCH (10:40)
[2020-04-25] MEDS: Azithromycin 250 MG TABLET PO SCH (10:40)
[2020-04-25] MEDS: buprenorphine HCL 2 MG, buprenorphine HCL 8 MG SL SCH (10:40)
== END 2020-04-25 15:18 | disposition home or self-care (01) ==
LOC: 3BNU 16:21 → EMEROOARM 16:21 → 3BNU 23:20
PROVIDERS: ADMIT Internal Medicine; ATTEND Internal Medicine